=== PATIENT | male | born 1940 | race Caucasian/White ===

== ENCOUNTER → 2017-11-15 12:34 | Outpatient (CLI) | payer MEDICARE, SELFPAY ==
--- NOTE | 2017-11-15 12:40 | RAD_ITS ---
STUDY: X-RAY CHEST REASON FOR EXAM: Male, 77 years old. Cough. TECHNIQUE: PA and lateral views of the chest. COMPARISON: August 18, 2006. CT of the chest, September 12, 2007. FINDINGS: The lungs are clear and expanded. There is no demonstrated pleural abnormality. Normal size heart. Normal mediastinum and more. Normal visualized pulmonary arteries. Normal visualized aortic arch and descending thoracic aorta. There are diffuse degenerative changes of the visualized thoracic spine. Normal visualized ribs, clavicles, and shoulders. There is no demonstrated abnormality of the visualized soft tissue structures of the upper abdomen. RAD/Chest PA and Lateral IMPRESSION: No acute cardiopulmonary disease or interval change. Electronically Signed: Ed Singleton DO at 8:35 EDT Tel [phone], Service support ,
== END ==
PROVIDERS: Family Provider Family Medicine; PCP Family Medicine; Visit Provider Family Medicine
DX: R05 Cough (principal)
CPT/HCPCS: 71046

== ENCOUNTER 2019-04-19 07:58 | Day surgery (SDC) | payer MEDICARE, SELFPAY ==
[2019-03-20 14:51] VITALS: BMI 31.2
--- NOTE | 2019-04-18 21:13 | PCM.HP.BLA ---
History and Physical Date of Admission: 04/19/19 HISTORY OF PRESENT ILLNESS 79 year old man presents for evaluation for TBSE. He has an enlarging lesion on his right upper lip near the nasal sill by the columella and perialar area. It was initially biopsied in February, and it was a basal cell carcinoma. He is also concerned about a lesion on his right ear at the middle helical rim and extending onto the posterior aspect. This lesion has not been biopsied as of yet. It has also increased in size and has developed irregular borders. He also has a scabby area on his anterior frontal scalp that is consistent with an actinic lesion. He states it has also increased in size as well. Denies ulceration. Lesions are nontender. He presents at this time for further evaluation and treatment. PAST MEDICAL HISTORY Arthritis Atrial fibrillation Diabetes Hearing problem High cholesterol Skin cancer High blood pressure PAST SURGICAL HISTORY None. ALLERGIES No Known Allergies MEDICATIONS glucosamine lisinopril metformin multivitamin simvastatin warfarin FAMILY HISTORY Mother - Cancer, Heart disease, Hypertension Daughter - Cancer SOCIAL HISTORY Smoking Status: Former smoker alcohol intake: never substance use type: does not use REVIEW OF SYSTEMS General - Denies fever, fatigue, and weight loss. Eyes - Has cataracts. Denies glaucoma. ENT - Denies nasal congestion and sore throat. Endocrine - Denies excessive thirst and urination. Skin - Has basal cell carcinoma right upper lip near nasal sill by columella and perialar area. Has enlarging lesion right ear at middle helical rim extending onto posterior aspect. He also has actinic lesion anterior frontal scalp. Musculoskeletal - Denies joint pain, joint stiffness, weakness of muscles and joints, back pain, and arthritis. Neuro - Denies headaches. Cardiovascular - Denies chest pain, fatigue, and shortness of breath with exertion. Psych - Denies anxiety and depression. Respiratory - Denies chronic cough and shortness of breath. Gastrointestinal - Denies nausea, vomiting, and constipation. Has diarrhea. Hematologic - Denies abnormal bruising and bleeding. Genitourinary - Denies hematuria. Has urinary frequency. PHYSICAL EXAMINATION General - Alert and Oriented. HEENT - PERRL. EOMI. Throat is clear. On the right upper lip near nasal sill by columella and perialar area is a nodular lesion that measures 7 mm. It was biopsied in February, and shown to be a basal cell carcinoma with ulceration. On the right ear at middle helical rim extending onto posterior aspect is a nodular lesion that is firm. It measures 14 mm. No ulceration. Lesion is nontender. On the anterior frontal scalp is an actinic scabby lesion that measures 2 cm. No ulceration. Lesion is nontender. Neck - Supple and nontender. No cervical adenopathy. No suspicious lesions noted. Lungs - Clear to auscultation. Heart - Regular rate and rhythm. Abdomen - Soft and nondistended. Extremities - FROM. No axillary adenopathy. Radial pulses are palpable. No suspicious lesions noted. Neuro - CN II-XII grossly intact. Psych - Normal mood and affect. ASSESSMENT 1. 7 mm basal cell carcinoma right upper lip near nasal sill by columella and perialar area. 2. 14 mm lesion right ear at middle helical rim extending onto posterior aspect. 3. 2 cm actinic lesion anterior frontal scalp. 4. Personal history of skin cancer. 5. Former smoker. PLAN Recommend excision of the basal cell carcinoma right upper lip near nasal sill by columella and perialar area and send it to Pathology for analysis to rule out carcinoma. Reconstruction will be with complex lip advancements and/or skin grafting. He is interested in the least amount strategy to take care of the carcinoma. The patient is interested in leaving the wound open after excision of the basal cell carcinoma. The resultant wound should heal well with daily Silver dressing changes. If there develops a problem with healing of the wound on the right upper lip area, then the scar can be excised followed by skin grafting or advancement lip flaps. If the right ear lesion shows carcinoma, then a two stage posterior auricular skin flap with cartilage grafting for support would be needed. The patient is not that interested in a 2 stage procedure. The simplest one stage procedure for the right ear would be skin grafting. Slight deformity may be present after the one stage reconstruction. Patient is aware of the possibility of residual deformity of the right ear. He voices understanding and wishes to proceed. Surgery will be under local anesthesia and IV sedation on an outpatient basis. Patient was informed of the risks and complications of the procedure including alternatives to surgery. These were discussed with the patient personally. Patient voices understanding and wishes to proceed. Some of the risks and complications were included in a form from the [employer] [employer]. For the actinic lesion anterior frontal scalp, can treat with Aldara cream after the surgery. The cream is applied to the affected area daily at night 5 days per week for 6 weeks. if not successful, then excision would be needed with skin grafting for support. After using Aldara, he will followup in 2 months for further evaluation.
[2019-04-19] VITALS (8 sets, daily range): BP systolic 112–147; BP diastolic 43–76; PULSE 54–82; RESP 16–18; TEMP 36–36.4; O2SAT 92–99; BMI 30.4
--- NOTE | 2019-04-19 | LES_PTH ---
PATIENT: CHRISTIANO ESTRELLA LOC: [facility] [place] U#:[id number] AGE/SX: 79/M ROOM: RE04/19/[address]: Dr. Greg Finnegan MD : 1940 BED: DIS: 04/19/2019 SPEC #: [id number] RECD: 04/19/19 09:49 STATUS: YANCI JANE #: [id number] ELYSE: 04/19/19 00:[address]: Greg Finnegan DEPT: SURGICAL PATHOLOGY RECD BY: Xiomara Armstrong ENTERED: 04/19/19 10:01 SP TYPE: Lesion OTHR DR: Dr. Kanu Steele MD Tissues: A - Skin of external ear, NOS B - Skin of lip, NOS C - Skin of external ear, NOS Procedures: Frozen Section (charge) Surgery Specimen Level IV HEADER OPERATION: Excision basal cell carcinoma, right upper lip by perialar area PRE-OP DIAGNOSIS: 7 mm basal cell carcinoma right upper lip near nasal sill by columella and perialar area; 14 mm lesion right ear at middle helical rim extending onto posterior aspect TISSUE SUBMITTED: A - Right ear lesion middle helical rim at posterior aspect sent for FS at 0943, B - Right upper lip near nasal sill by columella and perialar area, suture niño 12 o'clock, C - Right ear additional margins, black suture at 12 o'clock, clear suture at side is for repair only FROZEN SECTION DIAGNOSIS A. Right ear lesion, middle helical rim at posterior aspect, biopsy: Basal cell carcinoma. SJ:maritza 04/19/19 MICROSCOPIC DIAGNOSIS A. Right ear lesion, middle helical rim at posterior aspect, biopsy: Basal cell carcinoma, nodular type (1.4 cm in greatest dimension). See comment. B. Lesion right upper lip near nasal sill by columella and perialar area, excisional biopsy: Basal cell carcinoma, nodular type (0.8 cm in greatest dimension) with focal ulceration and associated inflammation, completely excised in the planes of sections examined. Solar elastosis. C. Right ear lesion, additional margin, excisional biopsy: Focal ulceration and changes consistent with previous biopsy site (specimen A). Focal residual basal cell carcinoma (0.2 cm in greatest dimension), completely excised. Solar elastosis. SJ:maritza 04/22/19 COMMENT A. The entire specimen is involved by tumor. Case has been reviewed in consultation with Dr. Jean who concurs with the above diagnosis. IDC:AM MICROSCOPIC DESCRIPTION Slides are reviewed. GROSS DESCRIPTION A - Received fresh for frozen section diagnosis labeled with the patient's name is a specimen designated right ear lesion at middle helical rim extending onto posterior aspect. The specimen consists of a piece of lenz-white skin measuring 1.4 x 1 x 0.2 cm. The specimen is inked, serially sectioned and submitted entirely for frozen section diagnosis in one cassette. B - Received in fixative is one container labeled with the patient's name and designated lesion right upper lip near nasal sill by columella and perialar area, suture niño 12 o'clock. The specimen consists of a round piece of lenz-white skin measuring 1.4 x 1.1 cm and up to 0.3 cm in thickness. The specimen is inked as follows: 12 to 3 o'clock - black, 3 to 6 o'clock - blue, 6 to 9 o'clock - green and 9 to 12 o'clock - yellow. The specimen is serially sectioned and submitted entirely in one cassette. C - Received in fixative is one container labeled with the patient's name and designated right ear additional margin, suture at 12 o'clock. The specimen consists of a wide piece of lenz-white skin measuring 2 x 1 x 0.2 cm. There is a central defect measuring 1.3 x 0.7 cm. The specimen is oriented by a suture at 12 o'clock. The specimen is inked as follows: 12 to 3 o'clock - black, 3 to 6 o'clock - blue, 6?to 9 o'clock - green, 9 to 12 o'clock - yellow. The specimen is serially sectioned and submitted entirely in one cassette. / LUIS FERNANDO:maritza 04/19/19 TC:0 CPT: 74962 x3, 12755
[2019-04-19] MEDS: Lactated Ringers 1,000 ML 100 ML IV ×2 (08:54→12:17)
[2019-04-19 09:01] LABS: Bedside Glucose 125 mg/dL (70-110)
[2019-04-19] MEDS: Mupirocin Ointment 22gm Tube 1 APPLIC (10:50)
[2019-04-19 10:56] LABS: Prothrombin Time Fingerstick 14.8 SEC (11.9-14.4)
--- NOTE | 2019-04-19 11:04 | PCM.OPRPT ---
Report of Operation Date of Procedure: 04/19/19 Pre-Operative Diagnosis: 1. 7 mm basal cell carcinoma right upper lip near nasal sill by columella and perialar area. 2. 14 mm lesion right ear at middle helical rim extending onto posterior aspect. 3. 2 cm actinic lesion anterior frontal scalp. 4. Personal history of skin cancer. 5. Former smoker. Post-Operative Diagnosis: 1. 7 mm basal cell carcinoma right upper lip near nasal sill by columella and perialar area. 2. 14 mm basal cell carcinoma right ear at middle helical rim extending onto posterior aspect. 3. 2 cm actinic lesion anterior frontal scalp. 4. Personal history of skin cancer. 5. Former smoker. Surgery/Procedure Performed:: 1. Excision 7 mm basal cell carcinoma right upper lip near nasal sill by columella and perialar area. 2. Excision 14 mm basal cell carcinoma right ear at middle helical rim extending onto posterior aspect with FTSG reconstruction from right neck (4.32 cm2). Description of Surgical Findings:: 79 year old man presents for evaluation for TBSE. He has an enlarging lesion on his right upper lip near the nasal sill by the columella and perialar area. It was initially biopsied in February, and it was a basal cell carcinoma. He is also concerned about a lesion on his right ear at the middle helical rim and extending onto the posterior aspect. This lesion has not been biopsied as of yet. It has also increased in size and has developed irregular borders. He also has a scabby area on his anterior frontal scalp that is consistent with an actinic lesion. He states it has also increased in size as well. Denies ulceration. Lesions are nontender. Plan on treating the actinic lesion anterior frontal scalp with Aldara cream. If not successful, will need surgical excision in the future. Patient was informed of the risks and complications of the procedure including alternatives to surgery. These were discussed with the patient personally. Patient voices understanding and wishes to proceed. Some of the risks and complications were included in a form from the [employer]. Size of skin graft middle helical rim right ear at posterior aspect - 2.4 x 1.8 cm. I used Anat absorbable hemostat. Reference Number - [id number]. Lot Number - [id number]. Expiration - February 14, 2024. 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 Type of Anesthesia:: General Specimen's removed: 1. Basal cell carcinoma right upper lip near nasal sill by columella and perialar area to Pathology. 2. Lesion right ear at middle helical rim extending onto posterior aspect to Pathology as a frozen section. 3. Basal cell carcinoma right ear at middle helical rim extending onto posterior aspect to Pathology. Drains: None. Estimated Blood Loss (mL): 25 ml. Description of Procedure: Patient was taken to OR in supine position and was placed under general anesthesia. The face and neck areas were prepped and draped in the usual fashion. SCD's were placed for DVT prophylaxis. Perioperative antibiotics were given intravenously. Using xylocaine with epinephrine, the lesion right upper lip was infiltrated. A regional auricular block right ear was also done for postop pain relief. After waiting 5 minutes for the anesthetic to take effect, I excised the right upper lip basal cell carcinoma in a circular fashion with a 3 mm margin in all directions thus making it a 13 mm excision. The excision was into the subcutaneous tissue. A suture was marked at 12 oclock position for pathology orientation and sent to Pathology for analysis to rule out carcinoma at the margins. The patient was not interested in wound reconstruction at this time so will leave the wound open. Hemostasis was obtained with electrocautery. The wound was dressed with Aquacel Silver and 4-0 Nylon tie over stent suture dressing. I then excised the lesion middle helical rim right ear extending onto posterior aspect in an intradermal fashion and sent it to Pathology as a frozen section. Frozen section showed it was a basal cell carcinoma. I then excised the remaining lesion with a 5 mm margin in all directions thus making it a 2.4 cm excision. Dissection was carried down to the perichondrium. No adherence to the cartilage was noted. A suture was marked at 12 oclock position for pathology orientation and was sent to Pathology for analysis to rule out carcinoma at the margins. The size of the defect for skin grafting was 2.4 x 1.8 cm or 4.32 cm2. I made an elliptical incision in the right neck after first infiltrating the area with xylocaine with epinephrine. The incision went into the subcutaneous tissue. I removed the subcutaneous tissue from the underside of the dermis thus fashioning a full thickness skin graft. The skin graft was placed in saline. I excised a little more subcutaneous tissue to aid in wound closure. Hemostasis was obtained with electrocautery. I sprayed Anat absorbable hemostat into the donor wound right neck to minimize seroma formation. The wound was closed in a layered fashion with 5-0 Monocryl interrupted sutures for the deep dermis and subcutaneous tissue. The skin was approximated with 5-0 Nylon simple interrupted sutures. Antibiotic ointment was applied to the suture line followed by gauze compression dressing. The full thickness skin graft was placed on the defect right ear and closed to the skin edges with 5-0 Chromic simple interrupted sutures. 5-0 Chromic sutures were also used for central quilting stabilization. Xeroform gauze was applied to the skin graft followed by antibiotic ointment and cotton balls soaked in saline and secured to the skin edges with 5-0 Nylon tie over stent suture dressing. Patient tolerated the procedure well and was sent to PACU in satisfactory condition. Patient will be sent home on antibiotics and pain medication. He will keep his head elevated during the initial postoperative period. Patient will followup on Monday for a Silver dressing change to his right upper lip. Will also remove the skin graft dressing as well for a wound check and for discussion of the pathology report. The donor incision sutures will be removed in a week. Grafts/Implants Used: None. - Complications None. - Admit VTE Documentation VTE Present on Admission: No VTE Mechan Device Prophylaxis: SCD's VTE Pharm Prophylaxis ordered?: No Code Visit Surgery Charges CPT - 50612 ICD-10 - C44.01, Z85.828, Z87.891 51045 C44.212, D49.2, Z85.828, Z87.891 37172 C44.212, D49.2, Z85.828, Z87.891
--- NOTE | 2019-04-19 11:20 | DCINST_ITS ---
You will use the following diet at home:: No restrictions Discharge Activity: May not drive while taking narcotic pain medications., May Not Shower - until dressing removed in office. May shower in (days): 5 - after the dressings are removed. May resume sexual activity in: No Restrictions Weight Bearing Status: Weight bearing as tolerated Lifting Restrictions: 10 lbs. Keep extremity elevated above heart level: - - keep head elevated. Call your doctor if your incision/area has: Continuous Slow Oozing, Sudden Increased Bleeding, Increased Pain/ Swelling, Increased Redness, Foul Smelling Discharge, Swelling at the incision site Call your doctor if you observe: Fever of 101 or Higher, Coldness, Increased Pain, Shortness of breath, Chest pain, Calf discomfort, Uncontrolled pain Suture Line Care: - - after dressings removed in office, will apply antibiotic ointment to suture line daily and the skin graft right ear daily. Will instruct patient on the right upper lip Silver dressing changes. Cleanse incision/area with: - - may shower after the dressings are removed in the office. Allergies/Adverse Reactions: Allergies No Known Allergies Allergy (Verified 04/19/19 08:27) Medications to take at Discharge glucosamine HCl 1,500 mg tablet 1,500 mg PO BID tab 03/15/19 lisinopril 10 mg tablet 10 mg PO DAILY 03/15/19 metformin 1,000 mg tablet 1,000 mg PO BID 03/15/19 multivitamin tablet 1 tab PO DAILY 03/15/19 simvastatin 20 mg tablet 20 mg PO QPM 03/15/19 Clindamycin HCl [Cleocin HCl] 300 mg PO TID #21 cap 04/19/19 Lactobacillus Acidophilus/Fos [Acidophilus Probiotic Tablet] 1 ea PO BID #15 tab 04/19/19 Oxycodone HCl/Acetaminophen [Percocet 5/325] 1 tab PO TID PRN PRN 7 Days #20 tab 04/19/19 Warfarin Sodium 6 mg PO SUMOTUWEFRSA #30 04/19/19 Warfarin [Coumadin] 9 mg PO TH #30 04/19/19 The following prescriptions were given: Lactobacillus Acidophilus/Fos [Acidophilus Probiotic Tablet] 1 ea PO BID #15 tab Prescription Printed Clindamycin HCl [Cleocin HCl] 300 mg PO TID #21 cap Prescription Printed Oxycodone HCl/Acetaminophen [Percocet 5/325] 1 tab PO TID PRN PRN 7 Days #20 tab PRN Reason: Pain Score 4-5/10 Prescription Printed Primary Care Physician: Lucas Steele MD [Primary Care Provider] - Test Results: Test results from this visit will be discussed in further detail at your follow- up appointment, if applicable. Please Follow Up With: Greg Finnegan MD When: Monday04/22/19. call [phone] for appt. Proposed Discharge Date: 04/19/19
[2019-04-19 12:01] LABS: Bedside Glucose 155 mg/dL (70-110)
== END 2019-04-19 14:10 | disposition home or self-care (01) ==
LOC: SDC 08:01 → AC 08:01
PROVIDERS: Family Provider Family Medicine; PCP Family Medicine; Referring Provider Surgery; Visit Provider Surgery
PROC: (CPT 11643; principal; 2019-04-19 09:10)
DX: C44.212 Basal cell carcinoma of skin of right ear and external auricular canal (principal); C44.01 Basal cell carcinoma of skin of lip; L57.8 Other skin changes due to chronic exposure to nonionizing radiation; Z85.828 Personal history of other malignant neoplasm of skin; Z87.891 Personal history of nicotine dependence; M19.90 Unspecified osteoarthritis, unspecified site; I48.91 Unspecified atrial fibrillation; E11.9 Type 2 diabetes mellitus without complications; E78.00 Pure hypercholesterolemia, unspecified; I10 Essential (primary) hypertension; G25.81 Restless legs syndrome; Z79.84 Long term (current) use of oral hypoglycemic drugs; Z79.01 Long term (current) use of anticoagulants; Z79.899 Other long term (current) drug therapy
CPT/HCPCS: 11643; 15260; 36416; 82962; 85610; 88305; 88331; J7120; J2405

== ENCOUNTER → 2019-07-25 13:53 | Outpatient (CLI) | payer MEDICARE, SELFPAY ==
[2019-05-29 10:59] VITALS: BMI 30.4
--- NOTE | 2019-07-25 13:57 | RAD_ITS ---
STUDY: X-RAY - RIGHT SHOULDER REASON FOR EXAM: Male, 79 years old. Right shoulder pain, fell recently -- limited range of motion TECHNIQUE: 4 view(s) of the shoulder. COMPARISON: None. FINDINGS: There is moderate degenerative arthrosis of the glenohumeral articulation. There is degenerative arthrosis of the acromioclavicular joint without inferior osseous spur formation. Normal acromion. Normal humeral head and visualized proximal humerus. The soft tissue structures are unremarkable. Normal visualized pulmonary apex. RAD/Shoulder min 2 Views IMPRESSION: Glenohumeral and acromioclavicular joint arthrosis Electronically Signed: Aaron Frederick MD at 9:42 EST , Service support ,
== END ==
PROVIDERS: PCP Family Medicine; Referring Provider Family Medicine; Visit Provider Family Medicine
DX: M25.511 Pain in right shoulder (principal)
CPT/HCPCS: 73030

== ENCOUNTER → 2019-08-30 08:19 | Outpatient (CLI) | payer MEDICARE, SELFPAY ==
[2019-05-29 10:59] VITALS: BMI 30.4
--- NOTE | 2019-08-29 15:00 | LES_PTH ---
PATIENT: CHRISTIANO ESTRELLA LOC: [facility] U#:[id number] AGE/SX: 85/M ROOM: RE08/30/[address]: Dr. Kanu Steele MD : 1940 BED: DIS: SPEC #: [id number] RECD: 08/29/19 17:46 STATUS: YANCI JANE #: [id number] ELYSE: 08/29/19 15:[address]: Kanu Steele DEPT: SURGICAL PATHOLOGY RECD BY: Thompson Camacho Tissues: Skin of forehead Procedures: Surgery Specimen Level IV HEADER OPERATION: Shave biopsy PRE-OP DIAGNOSIS: ? BCC TISSUE SUBMITTED: Suspicious lesion of forehead MICROSCOPIC DIAGNOSIS Suspicious lesion of forehead, shave biopsy: Features of both seborrheic keratosis and actinic keratosis with mild atypia. Negative for malignancy. SJ:maritza 09/02/19 COMMENT Case has been reviewed in consultation with Dr. Jean who concurs with the above diagnosis. IDC:AM MICROSCOPIC DESCRIPTION Slides are reviewed. GROSS DESCRIPTION Received in fixative is one container labeled with the patient's name and designated forehead lesion. The specimen consists of two irregular fragments of light lenz shave biopsy of skin measuring in size from 1.5 to 2.7 cm. Both have an average thickness of 0.1 cm. Both fragments are inked, sectioned and totally submitted in one cassette. / AM:maritza 08/30/19 TC:5 CPT: 14589
== END ==
PROVIDERS: PCP Family Medicine; Referring Provider Family Medicine; Visit Provider Family Medicine
DX: C44.91 Basal cell carcinoma of skin, unspecified (principal)
CPT/HCPCS: 88305

== ENCOUNTER → 2020-05-04 15:08 | Outpatient (CLI) | payer MEDICARE, SELFPAY ==
[2019-05-29 10:59] VITALS: BMI 30.4
[2020-05-04 18:57] LABS: ALB/GLOB Ratio 1.1 RATIO (0.9-2.4); AST(SGOT) 24 U/L (15-37); Alanine Aminotransfer ALT/SGPT 39 U/L (16-61); Albumin, Serum 3.8 g/dL (3.2-5.0); Alkaline Phosphatase 73 U/L (45-117); Anion Gap 8 (5-15); BUN 18 mg/dL (7-18); BUN/Creat Ratio 13.8 RATIO (10-20); Calcium,Total 9.3 mg/dL (8.5-10.1); Chloride 104 mmol/L (98-107); Cholesterol 147 mg/dL (200); EST Glomerular Filtration Rate 56 mL/min (>60); Est Glom Filt Rate - Afr Amer 68 mL/min (>60); Globulin 3.5 g/dL (2.2-4.2); Glucose 158 mg/dL (74-106); High Density Lipoprotein 39 mg/dL; Potassium 4.3 mmol/L (3.5-5.1); Protein, Total 7.3 g/dL (6.4-8.2); Sodium Level 139 mmol/L (136-145); Thyroid Stim Hormone (TSH) 3.21 uIU/mL (0.358-3.74); Triglycerides 242 mg/dL; Very Low Density Lipoprotein 48 mg/dL (5-40)
== END ==
PROVIDERS: PCP Family Medicine; Visit Provider Family Medicine
DX: E11.8 Type 2 diabetes mellitus with unspecified complications (principal); E78.5 Hyperlipidemia, unspecified
CPT/HCPCS: 36415; 80053; 80061; 84443

== ENCOUNTER → 2020-11-26 17:32 | Outpatient (CLI) | payer MEDICARE, SELFPAY ==
[2019-05-29 10:59] VITALS: BMI 30.4
== END ==
PROVIDERS: PCP Family Medicine; Referring Provider Family Medicine; Visit Provider Family Medicine
DX: Z20.822 Contact with and (suspected) exposure to COVID-19 (principal)
CPT/HCPCS: 87635; U0005; U0003

== ENCOUNTER → 2021-04-26 12:57 | Outpatient (CLI) | payer MEDICARE, SELFPAY | PROVIDERS: PCP Family Medicine; Visit Provider Family Medicine | DX: U07.1 COVID-19 (principal) | CPT/HCPCS: 87635; U0005; U0003 ==

== ENCOUNTER 2021-04-28 12:08 | Outpatient (CLI) | payer MEDICARE, SELFPAY ==
[2021-04-28 12:30] VITALS: BP 122/48; PULSE 79; RESP 16; TEMP 36.3; O2SAT 99; BMI 29.0
[2021-04-28] MEDS: 0.9% Saline Lock 10 ML Syringe IV (12:30)
[2021-04-28 13:21] VITALS: BP 122/49; PULSE 67; RESP 16; TEMP 36.6; O2SAT 100
[2021-04-28 14:07] VITALS: BP 134/58; PULSE 90; RESP 16; TEMP 36.6; O2SAT 100
== END 2021-04-28 14:20 | disposition home or self-care (01) ==
LOC: MS3OUT 12:09 → MS3 12:09
PROVIDERS: PCP Family Medicine; Referring Provider Nurse Practitioner Adult Health; Visit Provider Nurse Practitioner Adult Health
DX: Z23 Encounter for immunization (principal); U07.1 COVID-19
CPT/HCPCS: J7050; M0245; Q0245; A4216

== ENCOUNTER 2021-11-11 21:15 | Emergency (ER) | payer MEDICARE, SELFPAY ==
[2021-11-11 21:16] VITALS: BP 140/74; PULSE 93; RESP 15; TEMP 37; O2SAT 97; BMI 29.1
[2021-11-11 21:18] VITALS: BP 140/74; PULSE 93; RESP 15; TEMP 37; O2SAT 97
--- NOTE | 2021-11-11 21:29 | EDS_ITS ---
HPI History of Present Illness Chief Complaint: Complaint Narrative Narrative: Patient presents with his with urinary retention symptoms that he has had for the past few weeks. He states that he will feel retention and then only go a small amount. He states he started taking super beta prostate and it did not seem to make a difference, however when he stopped taking that on Monday, 4 days ago, he states that he started having more retention. Approximately an hour ago he went a small amount. He has minimal discomfort in the suprapubic area. He denies any fevers or chills. No nausea or vomiting. His called his primary care physician and told him to come to the emergency department for evaluation of his decreased urine output/urinary retention. [facility] Medical History Arthritis Atrial fibrillation Diabetes Hearing problem High blood pressure High cholesterol Prostate enlargement Skin cancer Home Medications glucosamine HCl 1,500 mg tablet 1,500 mg PO BID tab 03/15/19 [History Last Taken Unknown] lisinopril 10 mg tablet 10 mg PO DAILY 03/15/19 [History Last Taken 04/19/19 07 :00 10 MG] metformin 1,000 mg tablet 1,000 mg PO BID 03/15/19 [History Last Taken Unknown] multivitamin 1 tab PO DAILY 03/15/19 [History Last Taken Unknown] simvastatin 20 mg tablet 20 mg PO QPM 03/15/19 [History Last Taken Unknown] warfarin 6 mg PO SUMOTUWEFRSA #30 04/19/19 [Rx Last Taken Unknown] warfarin 9 mg PO TH #30 04/19/19 [Rx Last Taken Unknown] cephalexin 500 mg PO TID #21 cap 11/11/21 [Rx Last Taken Unknown] Allergy/AdvReac Type Severity Reaction Status Date / Time No Known Allergies Allergy Verified 11/11/21 21:18 Family History Mother Cancer Heart disease Hypertension Daughter Cancer Social History Smoking Status: Former smoker alcohol intake: never substance use type: does not use additional social history: DOES USE ASPIRIN DOES USE IBUPROFEN ROS ROS ED ROS Narrative Constitutional: No fever, no chills. HEENT: No sore throat. No neck pain. No loss of vision. No rhinorrhea. Cardiovascular: No chest pain. No palpitations. No pedal edema. Respiratory: No cough, no shortness of breath. Abdominal: No abdominal pain. No nausea. No vomiting. Genitourinary: Positive difficulty urinating/dysuria. No hematuria. Urinary retention. Musculoskeletal: No myalgias. No arthralgias. Neurologic: No headaches. No dizziness. No lightheadedness. Skin: No rash. No change in color. Psychiatric: No depression. No anxiety. Review of systems mildly limited secondary to patient being hard of hearing. EXAM Physical Exam Narrative Exam Narrative: Afebrile. Vital signs noted. HEENT: Normocephalic. Atraumatic. PERRL, EOMI. Neck soft and supple. No point tenderness or step off. Cardiovascular: Regular rate and rhythm. No murmurs, rubs, or gallops appreciated. Respiratory: No tachypnea. Lungs clear to auscultation bilaterally. Gastrointestinal: Abdomen soft, nontender, with normoactive bowel sounds. No rebound or guarding. Neurological: Awake. Alert. Nonfocal, nonlateralizing. Patient hard of hearing even with hearing aids. Skin: No rash. Normal color. No pallor. Musculoskeletal: No pedal edema. Full range of motion extremities. Const Vital Signs: 11/11/21 21:16 11/11/21 21:18 11/11/21 23:24 Temperature 98.6 F 98.6 F Temperature Source Temporal Temporal Pulse Rate 93 93 Respiratory Rate 15 15 16 Blood Pressure 140/74 H 140/74 H Blood Pressure Mean 96 96 Pulse Ox 97 97 Oxygen Delivery Method Room Air Room Air MDM MDM MDM Narrative Medical decision making narrative: Bladder scan was performed. We will place a Abdalla catheter and send urinalysis. RN reports that her bladder scan may not be accurate. Abdalla catheter was placed. There were over 2 L of slightly bloody urine returned. Urinalysis shows leukocyte esterase 500 with RBCs greater than 100 and WBCs 10-25. This was sent for culture. I will check his INR. He did have blood work today which showed a slightly elevated white count but a stable hemoglobin. He had an elevated BUN of 62 as an outpatient and an elevated creatinine of 3.6, but I do think that this may have been secondary to his urinary retention. After his INR is checked, I do feel that he would be able to be discharged home with follow-up to his primary care physician for repeat INR check as he will be on antibiotics, and repeat creatinine after his urinary outlet obstruction has been resolved with a Abdalla catheter that has remained in place. He will be given a leg bag. I was able to discuss the patient with Dr. Seth Howell, on-call for his primary care physician who agrees with close outpatient follow-up, and rechecking his creatinine and holding his Coumadin to have his INR rechecked in a few days. states she will call the office tomorrow. He will also follow-up with urology and was referred to Dr. Flores. Return instructions were reviewed. Disposition is discharged home in stable condition. Lab Data Attestation: I reviewed the patient's lab results. Labs: Laboratory Results - last 24 hr 11/11/21 11/11/21 21:55 23:25 PT 38.5 H INR 4.0 H* Urine Color Red Urine Clarity Cloudy Urine pH 6.5 Ur Specific [place] 1.010 Urine Protein 100 H Urine Glucose (UA) Normal Urine Ketones 5 H Urine Occult Blood 250 H Urine Nitrite Negative Urine Bilirubin Negative Urine Urobilinogen 1 H Ur Leukocyte Esterase 500 H Urine RBC > 100 SEEN Urine WBC 10-25 SEEN Ur Squamous Epith Cells 5-10 SEEN Urine Bacteria 4+ Urine Mucus 0 SEEN Discharge Plan Triage Chief Complaint: Complaint ED Provider: Chintan Hughes Dx/Rx/DC Orders Clinical Impression: Acute urinary retention, Acute UTI, Supratherapeutic international normalized ratio (INR) Instructions: ED Abdalla Catheter, Care, ED Urinary Retention, Male, ED Urinary Tract Infections in Men Prescriptions: New cephalexin 500 mg capsule 500 mg PO TID Qty: 21 RF: 0 No Action lisinopril 10 mg tablet 10 mg PO DAILY RF: 0 metformin 1,000 mg tablet 1,000 mg PO BID RF: 0 simvastatin 20 mg tablet 20 mg PO QPM RF: 0 multivitamin [Daily Multi-Vitamin] Tablet 1 tab PO DAILY RF: 0 glucosamine HCl 1,500 mg tablet 1,500 mg PO BID RF: 0 warfarin 6 MG tablet 9 mg PO TH Qty: 30 RF: 0 warfarin 6 mg tablet 6 mg PO SUMOTUWEFRSA Qty: 30 RF: 0 Primary Care Provider: Lucas Steele Referrals: Lucas Steele MD [Primary Care Provider] - 1 Day Jose Flores MD [STAFF PHYSICIAN] - 3-5 Days Activity Restrictions/Additional Instructions: Do not remove Abdalla catheter. Take your antibiotics as directed. Return with sustained high fever, new or worsening symptoms. Hold your Coumadin for the next 2 days. Have your INR rechecked as it was elevated at 4.0. Drink plenty of fluids and you need to have your creatinine rechecked. Disposition Disposition: Home, Self Care
[2021-11-11 22:01] LABS: Mucous, Urine 0 SEEN /hpf (<or=2+)
[2021-11-11 22:08] LABS: Color, Urine Red (Yellow); Glucose, Dipstick Normal (Normal); Ketone-Dipstick 5 mg/dl (Negative); Leukocyte Esterase-Dipstick 500 /ul (Negative); Nitrite-Dipstick Negative (Negative); Occult Blood-Urine 250 /ul (Negative); Protein-Dipstick 100 mg/dl (Negative); Urine Bilirubin Dipstick Negative (Negative); Urine Clarity Cloudy (Clear); Urine Urobilinogen 1 mg/dl (Normal); Urine pH 6.5 (5.0 - 8.0)
[2021-11-11 22:19] LABS: Bacteria 4+ /hpf (None Seen); Red Blood Cells-Urine > 100 SEEN /hpf (0-5); Squamous Epithelial Cells - UA 5-10 SEEN /hpf (0-5); White Blood Cells 10-25 SEEN /hpf (0-5)
[2021-11-11] MEDS: Cephalexin 250 MG Capsule 500 MG PO (23:17)
[2021-11-11 23:24] VITALS: RESP 16
[2021-11-11 23:43] LABS: Prothrombin Time (Protime)PT. 38.5 SECONDS (11.7-14.9)
[2021-11-12 00:17] VITALS: PULSE 80; RESP 18; O2SAT 96
== END 2021-11-12 00:17 | disposition home or self-care (01) ==
PROVIDERS: Emergency Provider Emergency Medicine; PCP Family Medicine; Visit Provider Emergency Medicine
DX: R33.9 Retention of urine, unspecified (principal); I48.91 Unspecified atrial fibrillation; E11.9 Type 2 diabetes mellitus without complications; N39.0 Urinary tract infection, site not specified; E78.00 Pure hypercholesterolemia, unspecified; R53.83 Other fatigue; R79.1 Abnormal coagulation profile; Z79.01 Long term (current) use of anticoagulants; Z79.899 Other long term (current) drug therapy; Z79.84 Long term (current) use of oral hypoglycemic drugs; Z87.891 Personal history of nicotine dependence
CPT/HCPCS: 36415; 51702; 71046; 80053; 81001; 85025; 85610; 85652; 87077; 87086; 87088; 87186; 87635; 99284; U0003; U0005

== ENCOUNTER → 2021-11-11 | Outpatient (CLI) | payer MEDICARE, SELFPAY ==
--- NOTE | 2021-11-11 12:49 | RAD_ITS ---
STUDY: XR Chest 2 Views 11/11/2021 12:54 PM REASON FOR EXAM: Male, 81 years old. CHEST PAIN FATIGUE COMPARISON: None TECHNIQUE: XR Chest 2 Views FINDINGS: There is no demonstrated pleural abnormality. Normal heart size. Normal mediastinum. Normal more. Prominent appearing increased interstitial lung markings. Normal visualized pulmonary arteries. There is atherosclerotic calcification of the aortic arch with tortuosity. There are diffuse degenerative changes of the visualized thoracic spine. There is degenerative osteoarthritis of the bilateral shoulders. There is no demonstrated abnormality of the visualized soft tissue structures of the upper abdomen. RAD/Chest PA and Lateral IMPRESSION: There are no acute findings. Electronically Signed: Prashant Renteria MD at 19:01 EDT ,
[2021-11-11 15:10] LABS: Erythrocyte Sedimentation Rate 21 mm/hr (0-20)
[2021-11-11 15:12] LABS: Absolute Lymphocyte Count 0.31 X10^3/uL (0.83-4.51); Absolute Neutrophil Count 10.7 X10^3/uL (2.0-7.7); Basophil# 0.07 X10^3/uL; Basophil% 0.6 % (0-1); Hematocrit 42.5 % (40-54); Lymphocyte # 0.31 X10^3/ul (0.83-4.51); Lymphocyte % 2.6 % (19-41); Mean Corp Hgb Conc 32.9 g/dL (32-36); Mean Corpuscular Hgb 28.7 pg (27.0-32.0); Mean Corpuscular Volume 87.3 fL (80-94); Mean Platelet Vol. 11.7 fl (6.2-12.0); Monocyte# 0.86 X10^3/uL; Monocyte% 7.1 % (0-10); NRBC Flagged by Analyzer 0 % (0-5); Neutrophil # 10.73 X10^3/uL (2.7-7.7); Neutrophil % 89.2 % (47-70); POSITIVE DIFFERENTIAL YES; POSITIVE MORPHOLOGY YES; Platelet Count 195 K/mm3 (150-450); RBC Distribution Width CV 13.8 % (11.6-14.6); RBC Distribution Width SD 44.5 fl (35.1-43.9); Red Blood Count 4.87 M/mm3 (4.6-6.2)
[2021-11-11 15:27] LABS: ALB/GLOB Ratio 0.7 RATIO (0.9-2.4); AST(SGOT) 30 U/L (15-37); Alanine Aminotransfer ALT/SGPT 37 U/L (16-61); Alkaline Phosphatase 101 U/L (45-117); Anion Gap 13 (5-15); BUN 62 mg/dL (7-18); BUN/Creat Ratio 17.1 RATIO (10-20); Calcium,Total 9.1 mg/dL (8.5-10.1); Chloride 98 mmol/L (98-107); Creatinine, Serum 3.63 mg/dL (0.70-1.30); EST Glomerular Filtration Rate 17 mL/min (>60); Est Glom Filt Rate - Afr Amer 21 mL/min (>60); Globulin 4.4 g/dL (2.2-4.2); Glucose 273 mg/dL (74-106); Potassium 4.4 mmol/L (3.5-5.1); Protein, Total 7.4 g/dL (6.4-8.2); Sodium Level 132 mmol/L (136-145)
[2021-11-11 15:42] LABS: Differential Comment SCANNED
[2021-11-11 15:43] LABS: Differential Indicated SCAN CRITERIA MET
== END | disposition home or self-care (01) ==
PROVIDERS: PCP Family Medicine; Referring Provider Family Medicine; Visit Provider Family Medicine
DX: R53.83 Other fatigue (principal)
CPT/HCPCS: 36415; 71046; 80053; 85025; 85652; 87086; 87635; U0003; U0005

== ENCOUNTER 2021-11-13 10:49 | Inpatient (IN) | payer MEDICARE, SELFPAY ==
[2021-11-13 10:50] VITALS: BP 134/58; PULSE 96; RESP 18; TEMP 36.7; O2SAT 97; BMI 29.4
--- NOTE | 2021-11-13 11:04 | EKG12_ITS ---
Test Reason : WEAKNESS Blood Pressure : / mmHG Vent. Rate : 098 BPM Atrial Rate : 100 BPM P-R Int : 000 ms QRS Dur : 108 ms QT Int : 310 ms P-R-T Axes : 000 -07 005 degrees QTc Int : 395 ms Atrial fibrillation with premature ventricular or aberrantly conducted complexes Abnormal ECG Confirmed by LYN SALAZAR, WOLFGANG ([id number]), makeup editor SHAUNNA GRANT ([id number]) on 11/16/2021 1:12:11 PM Referred By: CAMMY Confirmed By:WOLFGANG NICHOLSON MD
--- NOTE | 2021-11-13 11:07 | NURSING ---
NO OLD EKGS
--- NOTE | 2021-11-13 11:20 | RAD_ITS ---
STUDY: X-RAY CHEST REASON FOR EXAM: Male, 81 years old. Weakness TECHNIQUE: Single AP portable view of the chest. COMPARISON: November 11, 2021. FINDINGS: The lungs are clear and expanded. There is no demonstrated pleural abnormality. Normal size heart. Normal mediastinum and more. Normal visualized pulmonary arteries. Normal visualized aortic arch and descending thoracic aorta. There is demineralization of the osseous structures. Normal visualized ribs, clavicles, and shoulders. There is no demonstrated abnormality of the visualized soft tissue structures of the upper abdomen. RAD/Chest 1 View (Portable) IMPRESSION: No acute cardiopulmonary disease. Stable appearance. Electronically Signed: Ke Guevara MD at 12:03 EDT ,
[2021-11-13] MEDS: 0.9% Normal Saline 1,000 ML 999 ML IV (11:31)
--- NOTE | 2021-11-13 11:33 | EDS_ITS ---
HPI History of Present Illness Chief Complaint: Weakness Informant: patient Narrative Narrative: Patient is an 81-year-old male with history of atrial fibrillation on Coumadin, diabetes mellitus on metformin and recent diagnosis of urinary retention UTI with Abdalla catheter in place and on Keflex. Fevers have since resolved however patient is not getting better and still feels very weak. notes his breathing seems a little faster. He continues to have blood-tinged urine. As he is not really getting better and is already been 2 days they brought him back for further evaluation. No new symptoms. Chart view shows INR was 4.0 on 11/11. No report of any falls however patient feels that he is having hard time walking because of weakness. [facility] Medical History Arthritis Atrial fibrillation Diabetes Hearing problem High blood pressure High cholesterol Prostate enlargement Skin cancer Home Medications glucosamine HCl 1,500 mg tablet 1,500 mg PO BID tab 03/15/19 [History Last Taken Unknown] lisinopril 10 mg tablet 10 mg PO DAILY 03/15/19 [History Last Taken 04/19/19 07:00 10 MG] metformin 1,000 mg tablet 1,000 mg PO BID 03/15/19 [History Last Taken Unknown] multivitamin 1 tab PO DAILY 03/15/19 [History Last Taken Unknown] simvastatin 20 mg tablet 20 mg PO QPM 03/15/19 [History Last Taken Unknown] warfarin 6 mg PO SUMOTUWEFRSA #30 04/19/19 [Rx Last Taken Unknown] warfarin 9 mg PO TH #30 04/19/19 [Rx Last Taken Unknown] cephalexin 500 mg PO TID #21 cap 11/11/21 [Rx Last Taken Unknown] Allergy/AdvReac Type Severity Reaction Status Date / Time No Known Allergies Allergy Verified 11/13/21 10:50 Family History Mother Cancer Heart disease Hypertension Daughter Cancer Social History Smoking Status: Former smoker alcohol intake: never substance use type: does not use additional social history: DOES USE ASPIRIN DOES USE IBUPROFEN ROS ROS ED Constitutional Constitutional ED: Reports other Details: Malaise, fatigue ; Denies chills or fever(s) Eyes Eyes: Denies blurry vision or change in vision ENT ENT ED: Denies rhinorrhea or sore throat Cardiovascular Cardiovascular: Denies chest pain Respiratory/Chest Respiratory/Chest: Denies dyspnea Gastrointestinal Gastrointestinal: Denies abdominal pain, constipation, diarrhea, nausea or vomiting Genitourinary Genitourinary ED: Reports hematuria and other Details: Abdalla catheter in place ; Denies dysuria Musculoskeletal Musculoskeletal: Denies arthralgias or myalgias Integumentary Denies Abrasions or rash Neurologic Neurologic: Reports weakness; Denies headache(s) or paresthesias Psychiatric Psychiatric: Denies anxiety or depression EXAM Physical Exam Const Vital Signs: 11/13/21 10:50 11/13/21 10:57 Temperature 98.0 F Temperature Source Temporal Pulse Rate 96 Respiratory Rate 18 Respiratory Effort Normal Respiratory Pattern Normal Blood Pressure 134/58 H Blood Pressure Mean 83 Pulse Ox 97 Oxygen Delivery Method Room Air Positive well nourished and well developed General Appearance ED: well developed and NAD HEENT Reports dry mucous membranes Negative for trauma Mouth ED: Yes dry mucous membranes Mouth: dry mucous membranes Eyes PERRL and EOMs intact bilaterally Neck supple and no JVD Chest Wall inspection of chest normal Resp clear to auscultation bilaterally Resp Narrative: Slightly coarse breath sounds. Slight tachypnea. Auscultation: Negative for wheezes or diminished lung sounds Cardio regular rate and no murmurs Rhythm: abnormal rhythm irregularly irregular GI normal to inspection, nondistended, normoactive bowel sounds, non-tender and non-distended Palpation: soft Narrative: Abdalla catheter in place with dark/blood-tinged urine draining. Minimal clots present Back/Spine no CVA tenderness Extremity normal to inspection General Extremety ED: Negative for edema or tenderness General Extremity: Negative for edema Neuro oriented x3 and CN's II-XII intact bilaterally Sensorium / Orientation: alert Motor Exam: general weakness Psych mental status grossly normal Skin no rashes or lesions noted and no wounds MDM MDM MDM Narrative Medical decision making narrative: Patient is evaluated for generalized weakness that is continued over the past few days. He was diagnosed with s upratherapeutic INR, urinary tract infection as well as acute urinary obstruction 2 days ago in the ER. At that time was put on Keflex. Patient is continue to have dark/blood-tinged urine and is not improving however his fevers have resolved. On exam patient is mildly tachypneic and generally weak but otherwise well-appearing. A work-up is notable for stable hemoglobin at 13.4. INR of 7.7. Patient's creatinine is now 4.52. Urinalysis continues to show hematuria and 2+ bacteria. Culture reviewed from prior visit which does show sensitivity to Keflex however given his worsening kidney function generalized malaise and concern for worsening dehydration he will be admitted to the hospital service. Patient and are agreeable with this plan of care. This time I do not think he requires emergent reversal of his INR as he is hemodynamically stable and this will be managed further by the hospitalist. Lab Data Attestation: I reviewed the patient's lab results. Labs: Laboratory Results - last 24 hr 11/13/21 11/13/21 11/13/21 11:25 11:25 11:25 WBC 10.0 RBC 4.64 Hgb 13.4 Hct 39.8 L MCV 85.8 MCH 28.9 MCHC 33.7 RDW Std Deviation 43.8 RDW Coeff of [place] 14.0 Plt Count 134 L MPV 12.1 H Immature Gran % (Auto) 2.100 H Neut % (Auto) 84.0 H Lymph % (Auto) 3.0 L [place] % (Auto) 10.1 H Eos % (Auto) 0.3 Baso % (Auto) 0.5 Absolute Neuts (auto) 8.4 H Absolute Lymphs (auto) 0.30 L Nucleated RBC % 0 Differential Comment SCANNED PT 64.9 H INR 7.7 H* Sodium 134 L Potassium 4.3 Chloride 102 Carbon Dioxide 22.0 Anion Gap 10 BUN 97 H Creatinine 4.52 H Estim Creat Clear Calc 13.83 Est GFR (MDRD) Af Amer 16 L Est GFR (MDRD) Non-Af 13 L BUN/Creatinine Ratio 21.5 H Glucose 261 H Calcium 9.0 Total Bilirubin 1.30 H AST 71 H ALT 56 Alkaline Phosphatase 112 Troponin I High Sens 25 Total Protein 6.1 L Albumin 2.0 L Globulin 4.1 Albumin/Globulin Ratio 0.5 L Urine Color Urine Clarity Urine pH Ur Specific [place] Urine Protein Urine Glucose (UA) Urine Ketones Urine Occult Blood Urine Nitrite Urine Bilirubin Urine Urobilinogen Ur Leukocyte Esterase Urine RBC Urine WBC Ur Squamous Epith Cells Urine Bacteria Urine Mucus 11/13/21 11:25 WBC RBC Hgb Hct MCV MCH MCHC RDW Std Deviation RDW Coeff of [place] Plt Count MPV Immature Gran % (Auto) Neut % (Auto) Lymph % (Auto) [place] % (Auto) Eos % (Auto) Baso % (Auto) Absolute Neuts (auto) Absolute Lymphs (auto) Nucleated RBC % Differential Comment PT INR Sodium Potassium Chloride Carbon Dioxide Anion Gap BUN Creatinine Estim Creat Clear Calc Est GFR (MDRD) Af Amer Est GFR (MDRD) Non-Af BUN/Creatinine Ratio Glucose Calcium Total Bilirubin AST ALT Alkaline Phosphatase Troponin I High Sens Total Protein Albumin Globulin Albumin/Globulin Ratio Urine Color Yellow Urine Clarity Cloudy Urine pH 6.0 Ur Specific [place] 1.015 Urine Protein 100 H Urine Glucose (UA) Normal Urine Ketones Negative Urine Occult Blood 250 H Urine Nitrite Negative Urine Bilirubin Negative Urine Urobilinogen 1 H Ur Leukocyte Esterase 500 H Urine RBC > 100 SEEN Urine WBC 10-25 SEEN Ur Squamous Epith Cells 0 SEEN Urine Bacteria 2+ Urine Mucus 0 SEEN Radiography Chest X-Ray - ED: 1 View, Read by ED Physician, Read by Radiologist and No Acute Disease Diagnostic Testing: Clinical Impression(s) from Imaging Studies Chest X-Ray 11/13/21 11:20 IMPRESSION: No acute cardiopulmonary disease. Stable appearance. Electronically Signed: Ke Guevara MD at 12:03 EDT Reading Location ID and State: [address] [place] [address] , Service support , Rhythm Strip Rhythm Strip: A-fib Rate: 98 Ectopy: PVC(s) EKG Initial EKG: Attestation: I personally reviewed and interpreted this EKG as follows: Interpretation: Atrial Fibrillation Comments: Atrial fibrillation at a rate of 98 with PVC present Normal axis Normal ST segments Normal QRS and QTc Discharge Plan Triage Chief Complaint: Weakness ED Provider: Gay Cunningham Dx/Rx/DC Orders Clinical Impression: JACKI (acute kidney injury), Acute UTI, Supratherapeutic international normalized ratio (INR), Debility Prescriptions: No Action lisinopril 10 mg tablet 10 mg PO DAILY RF: 0 metformin 1,000 mg tablet 1,000 mg PO BID RF: 0 simvastatin 20 mg tablet 20 mg PO QPM RF: 0 multivitamin [Daily Multi-Vitamin] Tablet 1 tab PO DAILY RF: 0 glucosamine HCl 1,500 mg tablet 1,500 mg PO BID RF: 0 warfarin 6 MG tablet 9 mg PO TH Qty: 30 RF: 0 warfarin 6 mg tablet 6 mg PO SUMOTUWEFRSA Qty: 30 RF: 0 cephalexin 500 mg capsule 500 mg PO TID Qty: 21 RF: 0 Primary Care Provider: Lucas Steele Referrals: Lucas Steele MD [Primary Care Provider] - Disposition Disposition: Acute Care Hospital [facility]
[2021-11-13 11:35] LABS: Mucous, Urine 0 SEEN /hpf (<or=2+); Squamous Epithelial Cells - UA 0 SEEN /hpf (0-5)
[2021-11-13 11:41] LABS: Absolute Neutrophil Count 8.4 X10^3/uL (2.0-7.7); Basophil# 0.05 X10^3/uL; Basophil% 0.5 % (0-1); Eosinophil# 0.03 X10^3/uL; Eosinophils% 0.3 % (0-5); Hematocrit 39.8 % (40-54); Hemoglobin 13.4 g/dL (13.0-16.5); Mean Corp Hgb Conc 33.7 g/dL (32-36); Mean Corpuscular Hgb 28.9 pg (27.0-32.0); Mean Corpuscular Volume 85.8 fL (80-94); Mean Platelet Vol. 12.1 fl (6.2-12.0); Monocyte# 1.01 X10^3/uL; Monocyte% 10.1 % (0-10); NRBC Flagged by Analyzer 0 % (0-5); POSITIVE DIFFERENTIAL YES; POSITIVE MORPHOLOGY YES; Platelet Count 134 K/mm3 (150-450); RBC Distribution Width SD 43.8 fl (35.1-43.9); Red Blood Count 4.64 M/mm3 (4.6-6.2)
[2021-11-13 11:44] LABS: Differential Indicated SCAN CRITERIA MET
[2021-11-13 11:46] LABS: Prothrombin Time (Protime)PT. 64.9 SECONDS (11.7-14.9)
[2021-11-13 11:48] LABS: Color, Urine Yellow (Yellow); Glucose, Dipstick Normal (Normal); Ketone-Dipstick Negative (Negative); Leukocyte Esterase-Dipstick 500 /ul (Negative); Nitrite-Dipstick Negative (Negative); Occult Blood-Urine 250 /ul (Negative); Protein-Dipstick 100 mg/dl (Negative); Specific Gravity, Urine 1.015 (1.002-1.030); Urine Bilirubin Dipstick Negative (Negative); Urine Clarity Cloudy (Clear); Urine Urobilinogen 1 mg/dl (Normal)
[2021-11-13 11:49] LABS: International Normalized Ratio 7.7
--- NOTE | 2021-11-13 11:50 | ED.RN ---
lab calls inr 7.7 md aware
[2021-11-13 11:54] LABS: ALB/GLOB Ratio 0.5 RATIO (0.9-2.4); AST(SGOT) 71 U/L (15-37); Alanine Aminotransfer ALT/SGPT 56 U/L (16-61); Alkaline Phosphatase 112 U/L (45-117); Anion Gap 10 (5-15); BUN 97 mg/dL (7-18); BUN/Creat Ratio 21.5 RATIO (10-20); Chloride 102 mmol/L (98-107); Creatinine, Serum 4.52 mg/dL (0.70-1.30); EST Glomerular Filtration Rate 13 mL/min (>60); Est Glom Filt Rate - Afr Amer 16 mL/min (>60); Estimated Creatinine Clearance 13.83 ml/min; Globulin 4.1 g/dL (2.2-4.2); Glucose 261 mg/dL (74-106); Potassium 4.3 mmol/L (3.5-5.1); Protein, Total 6.1 g/dL (6.4-8.2); Sodium Level 134 mmol/L (136-145); Troponin-I HS 25 pg/mL (3.0-78.0)
[2021-11-13 11:56] LABS: White Blood Cells 10-25 SEEN /hpf (0-5)
[2021-11-13 11:57] LABS: Bacteria 2+ /hpf (None Seen); Red Blood Cells-Urine > 100 SEEN /hpf (0-5)
[2021-11-13 11:59] LABS: Differential Comment SCANNED
[2021-11-13 13:27] VITALS: BP 126/78; PULSE 66; PULSE 68; RESP 16; TEMP 36.9; O2SAT 98
--- NOTE | 2021-11-13 13:31 | US_ITS ---
STUDY: RENAL ULTRASOUND - COMPLETE REASON FOR EXAM: Male, 81 years old. [place] TECHNIQUE: Ultrasound evaluation of the kidneys was performed with real-time and static duran-scale imaging. COMPARISON: None. FINDINGS: RIGHT KIDNEY: Normal location of the right kidney, which is normal in size. The right kidney measures 13.6 cm. There is a normal cortex of the right kidney. The renal cortex measures 1.8 cm. There is no right renal mass or cyst. There are no right renal calculi. There is no right hydronephrosis. DISTAL RIGHT URETER: There is non-visualization of the distal right ureter. There is no demonstrated right ureterovesical junction calculus. There is a visualized right ureteral jet. LEFT KIDNEY: Normal location of the left kidney, which is normal in size. The left kidney measures 12.8 cm. There is a normal cortex of the left kidney. The renal cortex measures 2.2 cm. 1.5 cm cyst lower pole the left kidney. There are no left renal calculi. There is no left hydronephrosis. DISTAL LEFT URETER: There is non-visualization of the distal left ureter. There is no demonstrated left ureterovesical junction calculus. There is a visualized left ureteral jet. BLADDER: Abdalla catheter within the collapsed bladder.. US/Kidney and Bladder IMPRESSION: No hydronephrosis to suggest obstruction. Electronically Signed: Jeremy Matamoros MD at 15:45 EDT ,
--- NOTE | 2021-11-13 13:32 | HP.PCM.HOS_ITS ---
HPI - General HPI Narrative CHRISTIANO ESTRELLA, is a 81 M who presented to the emergency department at [facility] on 11/13/2021 with a chief complaint of weakness. Patient presented initially to the emergency department on 11/11/2021 at which time he had symptoms consistent with urinary retention. That have been ongoing for a few weeks and he was having discomfort in the suprapubic area as well as fevers. His called the primary care physician at that time and they recommended he be evaluated the emergency department. A UA was obtained at that time and was consistent with infection and therefore culture was sent. The patient is INR was elevated at 4.0 and he was asked to hold his Coumadin which she takes at [facility] for chronic atrial fibrillation. Abdalla was placed and he was discharged with Keflex and a Abdalla with instructions to follow-up with his primary care physician for an INR and given a referral to Dr. Flores for urological evaluation. Unfortunately the patient is p.o. intake has been poor and he is developed weakness and is having difficulty helping his take care of himself at this point. His fevers have resolved and his primary complaints are weakness and lack of oral intake. He is currently having trouble walking because of the weakness. His vital signs the emergency department were overall unremarkable with a temp of 98.4, pulse of 68, blood pressure 126/78, respiratory rate of 16 and oxygen saturation of 98% on room air. His CBC shows an improving left shift with a mild thrombocytopenia with a platelet count of 134,000 which is new, but is otherwise unremarkable. His INR is currently 7.7 up from 4.0 on 11/11/2021. His chemistry panel showed a sodium of 134, BUN of 97 and serum creatinine of 4.52. His baseline serum creatinine is unknown however he had a relatively normal serum creatinine 1.30 two years ago. Serum glucose was 261 and his bilirubin was slightly elevated 1.3 with an AST of 71. His chest x-ray was negative for any acute cardiopulmonary disease. His EKG shows chronic stable atrial fibrillation without any signs of ischemic changes. His UA shows a specific gravity of 1.015 consistent with some dehydration, proteinuria, occult blood, urobilinogen, and leukoesterase. He still has bacteria and white cells in his urine. Urine cultures from 11/11/2021 are reviewed and are showing Klebsiella. The organism seems to be fairly sensitive. The patient will be admitted to the medical surgical floor for IV hydration, therapy services, IV antibiotics with ceftriaxone for his UTI and further work- up for his acute kidney injury. [facility] Medical History Arthritis Atrial fibrillation Diabetes Hearing problem High blood pressure High cholesterol Prostate enlargement Skin cancer Home Medications glucosamine HCl 1,500 mg tablet 1,500 mg PO BID tab 03/15/19 [History Last Taken Unknown] lisinopril 10 mg tablet 10 mg PO DAILY 03/15/19 [History Last Taken 04/19/19 07:00 10 MG] metformin 1,000 mg tablet 1,000 mg PO BID 03/15/19 [History Last Taken Unknown] multivitamin 1 tab PO DAILY 03/15/19 [History Last Taken Unknown] simvastatin 20 mg tablet 20 mg PO QPM 03/15/19 [History Last Taken Unknown] warfarin 6 mg PO SUMOTUWEFRSA #30 04/19/19 [Rx Last Taken Unknown] warfarin 9 mg PO TH #30 04/19/19 [Rx Last Taken Unknown] cephalexin 500 mg PO TID #21 cap 11/11/21 [Rx Last Taken Unknown] Allergy/AdvReac Type Severity Reaction Status Date / Time No Known Allergies Allergy Verified 11/13/21 10:50 Family History Mother Cancer Heart disease Hypertension Daughter Cancer Surgical History (Updated 11/13/21 @ 14:[address] Noelle Montilla DO) Hx of basal cell carcinoma excision Social History (Updated 11/13/21 @ 14:[address] Noelle Montilla DO) household members: spouse housing: house Smoking Status: Former smoker alcohol intake: never substance use type: does not use additional social history: DOES USE ASPIRIN DOES USE IBUPROFEN ROS Constitutional Constitutional: Reports anorexia, fatigue and weakness; Denies change in weight, chills, fever(s), malaise, night sweats or other Eyes Eyes: Denies blurry vision, change in eye color, change in vision, discharge from eye(s), double vision, erythema, eye pain, loss of vision or other ENT HEENT: Denies abnormal hearing, dysphagia, ear pain, epistaxis, headache(s), hearing loss, nasal congestion, nasal discharge, post nasal drip, sinus pressure, sore throat or other Cardiovascular Cardiovascular: Denies chest pain, claudication, dyspnea on exertion, edema, lightheadedness, orthopnea, palpitations, paroxysmal nocturnal dyspnea, rapid heart rate, syncope or other Respiratory/Chest Respiratory/Chest: Denies cough, dyspnea, excessive phlegm production, hemoptysis, productive cough, shortness of breath at rest, shortness of breath with exertion, wheezing or other Gastrointestinal Gastrointestinal: Denies abdominal pain, coffee ground emesis, constipation, diarrhea, dyspepsia, hematemesis, hematochezia, loose stools, melena, nausea, vomiting or other Genitourinary Genitourinary: Reports difficulty urinating and hematuria; Denies burning urination, dysuria, nocturia, urinary frequency, urinary hesitancy, urinary incontinence, urinary urgency or other Musculoskeletal Musculoskeletal: Reports other Details: Generalized weakness ; Denies arthral gias, back pain, joint pain, joint stiffness, joint swelling, myalgias or neck pain Neurologic Neurologic: Denies abnormal gait, abnormal speech, confusion, disequilibrium, dizziness, focal weakness, headache(s), numbness, paresthesias, seizure-like activity, seizures, syncope, tingling, tremor(s) or other Psychiatric Psychiatric: Denies anxiety, depression, homicidal ideation, suicidal ideation or other Endocrine Endocrinology: Denies change in body appearance, cold intolerance, excessive sweating, heat intolerance, polydipsia, polyuria or other Hematologic/Lymphatic Hematologic/Lymphatic: Denies anemia, easy bleeding, easy bruising, lymphadenopathy or other Allergic/Immunologic Allergic/Immunologic: Denies rhinitis, hives, eczemia, asthma or other Vital Signs Vital Signs Vital Signs: 11/13/21 10:50 11/13/21 10:57 Temperature 98.0 F Temperature Source Temporal Pulse Rate 96 Respiratory Rate 18 Respiratory Effort Normal Respiratory Pattern Normal Blood Pressure 134/58 H Blood Pressure Mean 83 Pulse Ox 97 Oxygen Delivery Method Room Air Weight Weight: 98.43 kg Body Mass Index (BMI) 29.4 Physical Exam Const alert, oriented x3, no apparent distress, healthy appearing and well nourished Constitutional Narrative: Overweight elderly white male lying in bed, at bedside, patient appears comfortable nontoxic General Appearance: cooperative HEENT normocephalic and head/scalp atraumatic HEENT Narrative: Hard of hearing, hearing aids in place, mucous membranes appear a bit dry but not parched, Mallampati is 2-3, no thrush, dentition is poor Eyes PERRL, EOMs intact bilaterally and conjunctivae normal Eyes Narrative: No scleral icterus Neck no lymphadenopathy, supple, no JVD and no carotid bruits Neck Narrative: Trachea midline, no thyroid enlargement Resp normal respiratory effort, no retractions, no use of accessory muscles and clear to auscultation bilaterally Auscultation: Negative for crackles, rales, rhonchi or wheezes Cardio regular rate, S1 normal heart sound, S2 normal heart sound, no murmurs, no rub, no gallops, no clicks and no JVD Cardio Narrative: Irregular regular rhythm GI normal to inspection, nondistended, normoactive bowel sounds, soft to palpation, non-tender and non-distended; Negative for hepatosplenomegaly GI Narrative: Abdalla in place draining blood-tinged urine with clots Extremity no clubbing, cyanosis or edema Peripheral Pulses: Yes pulses 2+ throughout Skin no rashes or lesions noted, no wounds, skin turgor normal, no jaundice, no petechiae and no mottling Neuro oriented x3, CN's II-XII intact bilaterally, moves all extremities and no focal motor deficits Neuro Narrative: Generalized weakness with proximal muscles weaker than distal, lower extremities weaker than upper extremities Sensorium / Orientation: awake and alert Speech: speech normal Psych Psych Narrative: Affect is slightly flat however patient is appropriately interactive Results Lab / Micro Data Attestation: I reviewed the patient's lab results. Result Diagrams: 11/13/21 11:25 11/13/21 11:25 Labs: Laboratory Results - last 24 hr 11/13/21 11:25: WBC 10.0, RBC 4.64, Hgb 13.4, Hct 39.8 L, MCV 85.8, MCH 28.9, MCHC 33.7, RDW Std Deviation 43.8, RDW Coeff of Nicolle 14.0, Plt Count 134 L, MPV 12.1 H, Immature Gran % (Auto) 2.100 H, Neut % (Auto) 84.0 H, Lymph % (Auto) 3.0 L, [place] % (Auto) 10.1 H, Eos % (Auto) 0.3, Baso % (Auto) 0.5, Absolute Neuts (auto) 8.4 H, Absolute Lymphs (auto) 0.30 L, Nucleated RBC % 0, Differential Comment SCANNED 11/13/21 11:25: PT 64.9 H, INR 7.7 H* 11/13/21 11:25: Sodium 134 L, Potassium 4.3, Chloride 102, Carbon Dioxide 22.0, Anion Gap 10, BUN 97 H, Creatinine 4.52 H, Estim Creat Clear Calc 13.83, Est GFR (MDRD) Af Amer 16 L, Est GFR (MDRD) Non-Af 13 L, BUN/Creatinine Ratio 21.5 H, Glucose 261 H, Calcium 9.0, Total Bilirubin 1.30 H, AST 71 H, ALT 56, Alkaline Phosphatase 112, Troponin I High Sens 25, Total Protein 6.1 L, Albumin 2.0 L, Globulin 4.1, Albumin/Globulin Ratio 0.5 L 11/13/21 11:25: Urine Color Yellow, Urine Clarity Cloudy, Urine pH 6.0, Ur Specific [place] 1.015, Urine Protein 100 H, Urine Glucose (UA) Normal, Urine Ketones Negative, Urine Occult Blood 250 H, Urine Nitrite Negative, Urine Bilirubin Negative, Urine Urobilinogen 1 H, Ur Leukocyte Esterase 500 H, Urine RBC > 100 SEEN, Urine WBC 10-25 SEEN, Ur Squamous Epith Cells 0 SEEN, Urine Bacteria 2+, Urine Mucus 0 SEEN Rhythm Strip Rhythm Strip: A-fib Rate: 98 Ectopy: PVC(s) Radiology Impression Chest X-Ray 11/13/21 11:20 IMPRESSION: No acute cardiopulmonary disease. Stable appearance. Electronically Signed: Ke Guevara MD at 12:03 EDT Reading Location ID and State: [facility] / [place] , Service support , Assessment & Plan Assessment/Plan (1) Acute UTI: (2) Acute urinary retention: (3) Supratherapeutic international normalized ratio (INR): (4) JACKI (acute kidney injury): (5) Debility: (6) Hyperglycemia: (7) Thrombocytopenia: PLAN: Acute Klebsiella UTI secondary to urinary retention -Abdalla placed in the emergency department on 11/11/2021 -Patient has had Keflex at home however compliance is questionable since p.o. intake has been poor -Start ceftriaxone with JACKI -Organism appears to be fairly pansensitive -We will need treated for complicated UTI -Start Flomax for urinary retention -May be able to perform a voiding trial prior to discharge depending on INR -We will need referral to urology at discharge JACKI on CKD stage IIIa -Signs serum creatinine is unknown but last available was from 2019 and serum creatinine was 1.3 -Patient and family report no known history of renal dysfunction -Check retroperitoneal ultrasound -Check urine lytes -IV hydration with normal saline at 100 cc/h -Repeat BMP in a.m. -Abdalla catheter to remain in place -Hold lisinopril -Hold metformin -Avoid nephrotoxins as able Thrombocytopenia -Acute -Mild -May be related to antibiotics/infection -Repeat CBC in a.m. DM-2 with hyperglycemia -Blood sugar 261 on admission laboratory data -Hold home metformin -Check hemoglobin A1c -Moderate dose sliding scale 3 times daily with meals -Lantus 6 units at bedtime Supratherapeutic INR -Likely related to poor p.o. intake, antibiotics, infection, JACKI -Hold Coumadin -Last dose was Monday -Check daily INR -We will give 2.5 mg of vitamin K with hematuria -So far CBC is stable -Repeat CBC in a.m. Debility -Patient with significant generalized weakness/decreased p.o. intake -Ensure for supplementation -Encourage oral hydration -PT/OT consultation Hypertension -Hold lisinopril -As needed hydralazine Hyperlipidemia -Continue simvastatin Chronic atrial fibrillation -Patient is not on any medications for rate control -Hold Coumadin secondary to supratherapeutic INR Osteoarthritis -Hold home glucosamine DVT prophylaxis -INR is supratherapeutic at 7.7 CODE STATUS -Full code as discussed with the patient on admission; was at bedside Charges/Coding Visit Charges Inpatient E&M: 15491 Init Hosp L3
--- NOTE | 2021-11-13 13:35 | NURSING ---
MED SURG HALEY LYONS, DEBILITY
[2021-11-13 14:19] LABS: Urine Sodium 19 mmol/L (Not Establ.)
[2021-11-13 14:27] LABS: Hemoglobin A1c 6.7 % (3.8-5.6)
[2021-11-13 14:52] VITALS: BP 147/42; PULSE 90; RESP 20; TEMP 37.5; O2SAT 97
[2021-11-13 15:24] VITALS: O2SAT 97
[2021-11-13] MEDS: 0.9% Normal Saline 1,000 ML 100 ML IV (15:41)
[2021-11-13] MEDS: 0.9% Saline Lock 10 ML Syringe IV (15:41)
[2021-11-13] MEDS: Glucerna Shake 120 ML LIQUID PO ×3 (15:45→21:17)
[2021-11-13 15:47] VITALS: BMI 28.5
[2021-11-13] MEDS: Phytonadione (Vit K1) 5 MG TABLET 2.5 MG PO (16:05)
[2021-11-13] MEDS: Ceftriaxone 1 GM/50 ML BAG IV (16:06)
[2021-11-13 16:16] LABS: Bedside Glucose 215 mg/dL (74-106)
[2021-11-13] MEDS: Tamsulosin HCl 0.4 MG Capsule PO (17:45)
[2021-11-13] MEDS: Insulin Lispro 100 UNIT/ML INSULN.PEN SC (17:46)
[2021-11-13 19:00] VITALS: BP 130/41; PULSE 92; RESP 18; TEMP 36.8; O2SAT 95
[2021-11-13] MEDS: Atorvastatin Calcium 10 MG Tablet PO (21:14)
[2021-11-13] MEDS: Insulin Glargine-YFGN 100 UNIT/ML Pen 6 UNIT SC (21:21)
[2021-11-13 21:26] LABS: Bedside Glucose 266 mg/dL (74-106)
--- NOTE | 2021-11-13 22:31 | NURSING ---
PT RESQUESTING ANTACID - DR LING NOTIFIED
[2021-11-14] MEDS: 0.9% Normal Saline 1,000 ML 100 ML IV ×3 (00:59→20:32)
[2021-11-14 01:00] VITALS: BP 111/37; PULSE 91; RESP 18; TEMP 36.8; O2SAT 94
[2021-11-14 06:22] LABS: Absolute Lymphocyte Count 0.48 X10^3/uL (0.83-4.51); Absolute Neutrophil Count 8.6 X10^3/uL (2.0-7.7); Basophil# 0.05 X10^3/uL; Basophil% 0.5 % (0-1); Eosinophil# 0.06 X10^3/uL; Eosinophils% 0.6 % (0-5); Hematocrit 32.9 % (40-54); Hemoglobin 11.2 g/dL (13.0-16.5); Lymphocyte # 0.48 X10^3/ul (0.83-4.51); Lymphocyte % 4.6 % (19-41); Mean Corpuscular Hgb 28.9 pg (27.0-32.0); Mean Corpuscular Volume 84.8 fL (80-94); Mean Platelet Vol. 12.2 fl (6.2-12.0); Monocyte# 1.14 X10^3/uL; Monocyte% 10.9 % (0-10); NRBC Flagged by Analyzer 0 % (0-5); Neutrophil # 8.57 X10^3/uL (2.7-7.7); Neutrophil % 81.8 % (47-70); POSITIVE DIFFERENTIAL YES; POSITIVE MORPHOLOGY YES; Platelet Count 147 K/mm3 (150-450); RBC Distribution Width CV 14.2 % (11.6-14.6); RBC Distribution Width SD 43.9 fl (35.1-43.9); Red Blood Count 3.88 M/mm3 (4.6-6.2); White Blood Count 10.5 K/mm3 (4.4-11.0)
[2021-11-14 06:24] LABS: Differential Indicated SCAN CRITERIA MET
[2021-11-14 06:32] LABS: International Normalized Ratio 5.9; Prothrombin Time (Protime)PT. 52.9 SECONDS (11.7-14.9)
[2021-11-14] MEDS: Insulin Lispro 100 UNIT/ML INSULN.PEN SC ×3 (06:34→17:26)
[2021-11-14 06:36] VITALS: BP 105/47; PULSE 86; RESP 18; TEMP 36.7; O2SAT 94
[2021-11-14 06:41] LABS: Bedside Glucose 202 mg/dL (74-106)
[2021-11-14 06:59] LABS: ALB/GLOB Ratio 0.5 RATIO (0.9-2.4); AST(SGOT) 163 U/L (15-37); Alanine Aminotransfer ALT/SGPT 110 U/L (16-61); Albumin, Serum 1.7 g/dL (3.2-5.0); Alkaline Phosphatase 119 U/L (45-117); Anion Gap 12 (5-15); BUN 112 mg/dL (7-18); BUN/Creat Ratio 25.2 RATIO (10-20); Calcium,Total 8.2 mg/dL (8.5-10.1); Chloride 109 mmol/L (98-107); Creatinine, Serum 4.45 mg/dL (0.70-1.30); EST Glomerular Filtration Rate 14 mL/min (>60); Est Glom Filt Rate - Afr Amer 16 mL/min (>60); Estimated Creatinine Clearance 14.05 ml/min; Globulin 3.5 g/dL (2.2-4.2); Glucose 231 mg/dL (74-106); Magnesium 2.3 mg/dL (1.6-2.6); Phosphorus 3.9 mg/dL (2.5-4.9); Potassium 4.2 mmol/L (3.5-5.1); Protein, Total 5.2 g/dL (6.4-8.2); Sodium Level 138 mmol/L (136-145)
[2021-11-14] MEDS: Multivitamins,Therapeutic Tablet 1 TABLET PO (08:16)
[2021-11-14] MEDS: 0.9% Normal Saline 1,000 ML 999 ML IV (08:18)
[2021-11-14 09:36] VITALS: BP 115/47; PULSE 78; RESP 18; TEMP 36.7; O2SAT 94
[2021-11-14] MEDS: Glucerna Shake 120 ML LIQUID PO ×2 (09:47→21:54)
[2021-11-14] MEDS: Ceftriaxone 1 GM/50 ML BAG IV (09:49)
[2021-11-14 11:41] LABS: Bedside Glucose 300 mg/dL (74-106)
--- NOTE | 2021-11-14 12:23 | PCM.PN.HOSP ---
Subjective Subjective Ports that he is feeling better today. He was able to get up to a chair without any significant difficulty using a walker and standby assist of 2. He states that this is better than yesterday. He is currently eating breakfast. No specific complaints this morning. Objective Data Objective Data Vital Signs: Vital Signs Temp Pulse Resp BP Pulse Ox 98.0 F 78 18 115/47 L 94 11/14/21 09:36 11/14/21 09:36 11/14/21 09:36 11/14/21 09:36 11/14/21 09:36 Oxygen Delivery Method Room Air Weight: 95.663 kg Body Mass Index (BMI) 28.5 Intake & Output: Intake and Output for Last 24 Hours 11/12/21 11/13/21 11/14/21 23:59 23:59 23:59 Intake Total 1350 / 1470 3576.67 / 3576.67 Output Total 450 / 900 900 / 900 Balance 900 / 570 2676.67 / 2676.67 Lab / Micro Data Result Diagrams: 11/14/21 05:48 11/14/21 05:48 Labs: Laboratory Results - last 24 hr 11/13/21 11:20: Hemoglobin A1c 6.7 H 11/13/21 11:25: Ur Random Sodium 19, Urine Creatinine 74.50 11/13/21 16:11: POC Glucose 215 H 11/13/21 21:20: POC Glucose 266 H 11/14/21 05:48: WBC 10.5, RBC 3.88 L, Hgb 11.2 L, Hct 32.9 L, MCV 84.8, MCH 28.9, MCHC 34.0, RDW Std Deviation 43.9, RDW Coeff of Nicolle 14.2, Plt Count 147 L, MPV 12.2 H, Immature Gran % (Auto) 1.600 H, Neut % (Auto) 81.8 H, Lymph % (Auto) 4.6 L, [place] % (Auto) 10.9 H, Eos % (Auto) 0.6, Baso % (Auto) 0.5, Absolute Neuts (auto) 8.6 H, Absolute Lymphs (auto) 0.48 L, Nucleated RBC % 0 11/14/21 05:48: PT 52.9 H, INR 5.9 H* 11/14/21 05:48: Sodium 138, Potassium 4.2, Chloride 109 H, Carbon Dioxide 17.0 L, Anion Gap 12, BUN 112 H*, Creatinine 4.45 H, Estim Creat Clear Calc 14.05, Est GFR (MDRD) Af Amer 16 L, Est GFR (MDRD) Non-Af 14 L, BUN/Creatinine Ratio 25.2 H, Glucose 231 H, Calcium 8.2 L, Phosphorus 3.9, Magnesium 2.3, Total Bilirubin 1.20 H, AST 163 H, ALT 110 H, Alkaline Phosphatase 119 H, Total Protein 5.2 L, Albumin 1.7 L, Globulin 3.5, Albumin/Globulin Ratio 0.5 L 11/14/21 06:33: POC Glucose 202 H 11/14/21 11:38: POC Glucose 300 H Radiography Diagnostic Testing: Radiology Impression Renal Ultrasound 11/13/21 13:31 IMPRESSION: No hydronephrosis to suggest obstruction. Electronically Signed: Jeremy Matamoros MD at 15:45 EDT , Rhythm Strip Rhythm Strip: A-fib Rate: 98 Ectopy: PVC(s) Physical Exam Const alert, oriented x3, no apparent distress, healthy appearing and well nourished Constitutional Narrative: Overweight elderly white male sitting up in a chair at the bedside, nurses aides in the room as he is just gotten up to the chair. Getting ready to eat his breakfast, appears comfortable and nontoxic, patient is extremely hard of hearing and his took his hearing aids home as they General Appearance: cooperative Exam Limitations: physical limitations Nutritional Appearance: overweight HEENT normocephalic and head/scalp atraumatic; Negative for dentition normal HEENT Narrative: Poor dentition, Mallampati 2, no thrush, extremely hard of hearing Head and Scalp: normocephalic Resp normal respiratory effort, no retractions, no use of accessory muscles and clear to auscultation bilaterally Auscultation: Negative for crackles, rales, rhonchi or wheezes Cardio regular rate, S1 normal heart sound, S2 normal heart sound, no murmurs, no rub, no gallops, no clicks and no JVD Cardio Narrative: Irregular regular rhythm GI normal to inspection, nondistended, normoactive bowel sounds, soft to palpation, non-tender and non-distended; Negative for hepatosplenomegaly GI Narrative: Abdalla in place draining blood-tinged urine with clots Extremity no clubbing, cyanosis or edema Peripheral Pulses: Yes pulses 2+ throughout Skin no rashes or lesions noted, no wounds, skin turgor normal, no jaundice, no petechiae and no mottling Neuro oriented x3, moves all extremities and no focal motor deficits Sensorium / Orientation: awake and alert Speech: speech normal Psych affect normal Assessment & Plan Assessment/Plan (1) Acute UTI: (2) Acute urinary retention: (3) Supratherapeutic international normalized ratio (INR): (4) JACKI (acute kidney injury): (5) Debility: (6) Hyperglycemia: (7) Thrombocytopenia: PLAN: Acute Klebsiella UTI secondary to urinary retention -Abdalla placed in the emergency department on 11/11/2021 -Patient has had Keflex at home however compliance is questionable since p.o. intake has been poor -Continue ceftriaxone day 2 -We will need treated for complicated UTI -Continue Flomax -May be able to perform a voiding trial prior to discharge depending on INR -We will need referral to urology at discharge JACKI on CKD stage IIIa -Signs serum creatinine is unknown but last available was from 2019 and serum creatinine was 1.3 -Patient and family report no known history of renal dysfunction -Serum creatinine is relatively stable today and hopefully with continued hydration we will see a reduction in his serum creatinine slowly over time -Retroperitoneal ultrasound is unimpressive -FeNa is consistent with prerenal etiology -Continue IV hydration with normal saline at 100 cc/h -Repeat BMP in a.m. -Abdalla catheter to remain in place -Hold lisinopril -Hold metformin -Avoid nephrotoxins as able -Consult nephrology Thrombocytopenia -Acute -Remains mild -Stable -May be related to antibiotics/infection -Repeat CBC in a.m. DM-2 with hyperglycemia -Blood sugar 261 on admission laboratory data -Hold home metformin -Hemoglobin A1c was 6.7 indicating good control with current regimen -Suspect elevations are related to acute infection -Will continue current insulin regimens and follow -Moderate dose sliding scale 3 times daily with meals -Increase Lantus 10 units at bedtime Supratherapeutic INR -Likely related to poor p.o. intake, antibiotics, infection, JACKI -Hold Coumadin -Last dose was Monday -INR is trending down was 7.7 yesterday and down to 5.9 today -Check daily INR -2.5 mg of vitamin K was given at admission secondary to ongoing hematuria -CBC remains relatively stable as drop was likely related to hydration -Repeat CBC in a.m. Debility -Patient with significant generalized weakness/decreased p.o. intake -Ensure for supplementation -Encourage oral hydration -PT/OT to follow Hypertension -Hold lisinopril -Blood pressures are currently stable -As needed hydralazine Hyperlipidemia -Continue simvastatin Chronic atrial fibrillation -Patient is not on any medications for rate control -Hold Coumadin secondary to supratherapeutic INR Osteoarthritis -Hold home glucosamine DVT prophylaxis -INR is supratherapeutic at 5.9 CODE STATUS -Full code as discussed with the patient on admission; was at bedside Charges/Coding Visit Charges Inpatient E&M: 97276 Subs Hosp L2
[2021-11-14 13:33] VITALS: BP 111/52; PULSE 74; RESP 18; TEMP 36.7; O2SAT 95
[2021-11-14 16:06] LABS: Bedside Glucose 252 mg/dL (74-106)
[2021-11-14 17:15] VITALS: BP 108/68; PULSE 70; RESP 18; TEMP 36.7; O2SAT 95
[2021-11-14] MEDS: Tamsulosin HCl 0.4 MG Capsule PO (18:04)
--- NOTE | 2021-11-14 20:22 | CON.PCM.RE_ITS ---
Assessment & Plan Assessment/Plan (1) JACKI (acute kidney injury): PLAN: baseline cr last known is from 2019. no recent labs in [facility] system either. initially had urinary retention, bright in place, renal US without hydronephrosis now UA reviewed. but bright in hence not very reliable ? prerenal continue fluids for now no NSAIDs no recent contrast HPI Consult Data Date of Consult: 11/14/21 HPI Narrative HPI Narrative: CHRISTIANO ESTRELLA, is a 81 M who presents to the hospital with generalized weakness. renal consulted for JACKI. he initially presented to ER 2 days ago with inability to urinate. cr was elevated that visit. bright was placed and discharged home. came back with worsening weakness. found to have JACKI. denies any GI symptoms. no NSAIDs. baseline cr recent? last seen value is from 2019. currently denies any complaints. [facility] Medical History Arthritis Atrial fibrillation Diabetes Hearing problem High blood pressure High cholesterol Prostate enlargement Skin cancer Home Medications glucosamine HCl 1,500 mg tablet 1,500 mg PO BID tab 03/15/19 [History Last Taken 11/12/21] lisinopril 10 mg tablet 10 mg PO DAILY 03/15/19 [History Last Taken 11/13/21] metformin 1,000 mg tablet 1,000 mg PO BID 03/15/19 [History Last Taken 11/13/21] multivitamin 1 tab PO DAILY 03/15/19 [History Last Taken 11/12/21] simvastatin 20 mg tablet 20 mg PO QPM 03/15/19 [History Last Taken Unknown] warfarin 6 mg PO SUMOTUWEFRSA #30 04/19/19 [Rx Last Taken 11/10/21] warfarin 9 mg PO TH #30 04/19/19 [Rx Last Taken 11/11/21] cephalexin 500 mg PO TID #21 cap 11/11/21 [Rx Last Taken 11/12/21] Allergy/AdvReac Type Severity Reaction Status Date / Time No Known Allergies Allergy Verified 11/13/21 10:50 Family History Mother Cancer Heart disease Hypertension Daughter Cancer Surgical History (Updated 11/13/21 @ 14:[address] Noelle Montilla DO) Hx of basal cell carcinoma excision Social History (Updated 11/13/21 @ 14:[address] Noelle Montilla, DO) household members: spouse housing: house Smoking Status: Former smoker alcohol intake: never substance use type: does not use additional social history: DOES USE ASPIRIN DOES USE IBUPROFEN ROS ROS Narrative negative except above Physical Exam Narrative Alert awake oriented x 3 no obvious distress no pallor no icterus no JVD s1s2 no murmurs lungs clear abdomen soft no organomegaly no edema no cyanosis bright + Lab / Micro Data Result Diagrams: 11/14/21 05:48 11/14/21 05:48 Labs: Laboratory Results - last 24 hr 11/13/21 21:20: POC Glucose 266 H 11/14/21 05:48: WBC 10.5, RBC 3.88 L, Hgb 11.2 L, Hct 32.9 L, MCV 84.8, MCH 28.9, MCHC 34.0, RDW Std Deviation 43.9, RDW Coeff of Nicolle 14.2, Plt Count 147 L, MPV 12.2 H, Immature Gran % (Auto) 1.600 H, Neut % (Auto) 81.8 H, Lymph % (Auto) 4.6 L, [address] % (Auto) 10.9 H, Eos % (Auto) 0.6, Baso % (Auto) 0.5, Absolute Neuts (auto) 8.6 H, Absolute Lymphs (auto) 0.48 L, Nucleated RBC % 0 11/14/21 05:48: PT 52.9 H, INR 5.9 H* 11/14/21 05:48: Sodium 138, Potassium 4.2, Chloride 109 H, Carbon Dioxide 17.0 L , Anion Gap 12, BUN 112 H*, Creatinine 4.45 H, Estim Creat Clear Calc 14.05, Est GFR (MDRD) Af Amer 16 L, Est GFR (MDRD) Non-Af 14 L, BUN/Creatinine Ratio 25.2 H , Glucose 231 H, Calcium 8.2 L, Phosphorus 3.9, Magnesium 2.3, Total Bilirubin 1.20 H, AST 163 H, ALT 110 H, Alkaline Phosphatase 119 H, Total Protein 5.2 L, Albumin 1.7 L, Globulin 3.5, Albumin/Globulin Ratio 0.5 L 11/14/21 06:33: POC Glucose 202 H 11/14/21 11:38: POC Glucose 300 H 11/14/21 15:56: POC Glucose 252 H Rhythm Strip Rhythm Strip: A-fib Rate: 98 Ectopy: PVC(s)
[2021-11-14] MEDS: Atorvastatin Calcium 10 MG Tablet PO (20:32)
[2021-11-14 20:38] VITALS: BP 156/82; PULSE 77; RESP 16; TEMP 36.6; O2SAT 100
[2021-11-14] MEDS: Calcium Carbonate 500 MG Tablet PO (21:50)
[2021-11-14] MEDS: Insulin Glargine-YFGN 100 UNIT/ML Pen 10 UNIT SC (21:53)
[2021-11-14 22:01] LABS: Bedside Glucose 213 mg/dL (74-106)
--- NOTE | 2021-11-14 22:12 | NURSING ---
spoke to pt, states ok to give information to floyd Bonilla, called registration to put rodrick on contact info.
[2021-11-15 02:20] VITALS: BP 127/72; PULSE 78; RESP 16; TEMP 36.6; O2SAT 98
[2021-11-15] MEDS: 0.9% Normal Saline 1,000 ML 100 ML IV ×2 (06:29→17:15)
[2021-11-15] MEDS: Insulin Lispro 100 UNIT/ML INSULN.PEN SC ×3 (06:29→17:16)
[2021-11-15 06:39] LABS: Anion Gap 9 (5-15); BUN 107 mg/dL (7-18); BUN/Creat Ratio 26.3 RATIO (10-20); Calcium,Total 8.2 mg/dL (8.5-10.1); Chloride 110 mmol/L (98-107); Creatinine, Serum 4.07 mg/dL (0.70-1.30); EST Glomerular Filtration Rate 15 mL/min (>60); Est Glom Filt Rate - Afr Amer 18 mL/min (>60); Estimated Creatinine Clearance 15.36 ml/min; Glucose 207 mg/dL (74-106); Potassium 4.5 mmol/L (3.5-5.1); Sodium Level 136 mmol/L (136-145)
[2021-11-15 06:40] LABS: Bedside Glucose 187 mg/dL (74-106)
[2021-11-15 08:15] VITALS: O2SAT 98
[2021-11-15 08:30] VITALS: BP 132/46; PULSE 73; RESP 16; TEMP 36.5; O2SAT 98
[2021-11-15] MEDS: Multivitamins,Therapeutic Tablet 1 TABLET PO (10:08)
[2021-11-15] MEDS: Ceftriaxone 1 GM/50 ML BAG IV (10:09)
[2021-11-15 11:11] LABS: Prothrombin Time (Protime)PT. 38.9 SECONDS (11.7-14.9)
[2021-11-15] MEDS: Glucerna Shake 120 ML LIQUID PO ×2 (14:05→17:24)
[2021-11-15 14:30] VITALS: BP 120/82; PULSE 62; RESP 16; TEMP 36.7; O2SAT 97
--- NOTE | 2021-11-15 15:37 | PN.HOSP_ITS ---
Subjective Subjective Patient was seen and examined today, his son was in his room today and I discussed the patient's medical care with him also. Patient's INR has dropped to 4 today, his creatinine now is 4.07, BUN was 107. Objective Data Objective Data Vital Signs: Vital Signs Temp Pulse Resp BP Pulse Ox 98.0 F 62 16 120/82 H 97 11/15/21 14:30 11/15/21 14:30 11/15/21 14:30 11/15/21 14:30 11/15/21 14:30 Oxygen Delivery Method Room Air Weight: 95.663 kg Body Mass Index (BMI) 28.5 Intake & Output: Intake and Output for Last 24 Hours 11/13/21 11/14/21 11/15/21 23:59 23:59 23:59 Intake Total 1350 / 1470 4998.34 / 4998.34 1345 / 1345 Output Total 450 / 900 2525 / 2525 1435 / 1435 Balance 900 / 570 2473.34 / 2473.34 -90 / -90 Lab / Micro Data Result Diagrams: 11/14/21 05:48 11/15/21 05:20 Labs: Laboratory Results - last 24 hr 11/14/21 15:56: POC Glucose 252 H 11/14/21 21:49: POC Glucose 213 H 11/15/21 05:20: Sodium 136, Potassium 4.5, Chloride 110 H, Carbon Dioxide 17.0 L , Anion Gap 9, BUN 107 H*, Creatinine 4.07 H, Estim Creat Clear Calc 15.36, Est GFR (MDRD) Af Amer 18 L, Est GFR (MDRD) Non-Af 15 L, BUN/Creatinine Ratio 26.3 H , Glucose 207 H, Calcium 8.2 L 11/15/21 06:28: POC Glucose 187 H 11/15/21 10:50: PT 38.9 H, INR 4.0 H* Rhythm Strip Rhythm Strip: A-fib Rate: 98 Ectopy: PVC(s) Physical Exam Const alert, oriented x3, no apparent distress, average body habitus and healthy appearing General Appearance: cooperative, well kempt and well developed Orientation / Consciousness: awake, oriented to person, oriented to place and oriented to time HEENT normocephalic, head/scalp atraumatic and moist oral mucous membranes Head and Scalp: normocephalic Eyes PERRL, EOMs intact bilaterally and conjunctivae normal Neck nuchal rigidity, supple, no JVD, thyroid normal and no carotid bruits General: trachea midline Resp normal respiratory effort, no retractions, no use of accessory muscles and clear to auscultation bilaterally Auscultation: Negative for rales, rhonchi or wheezes Cardio regular rate, regular rhythm, S1 normal heart sound, S2 normal heart sound, no murmurs, no rub and no gallops GI normal to inspection, nondistended, normoactive bowel sounds, soft to palpation, non-tender and non-distended Extremity no clubbing, cyanosis or edema Skin no rashes or lesions noted General Skin Exam: no breakdown Neuro oriented x3, CN's II-XII intact bilaterally, no focal motor deficits and no sensory deficits noted Sensorium / Orientation: awake and alert Speech: speech normal Psych affect normal Assessment & Plan Assessment/Plan (1) Acute UTI: PLAN: 1. Acute kidney injury-probably secondary to acute bladder outlet obstruction, continue to give IV fluids and monitor creatinine, nephrology seeing the patient #2 acute cystitis secondary to Klebsiella pneumoniae-I will change the patient over to oral antibiotics starting tomorrow, patient received Rocephin today #3 supratherapeutic INR-etiology unclear, INR will be rechecked tomorrow #4 hyperbilirubinemia and liver enzyme elevations-I will repeat the patient's liver profile tomorrow Charges/Coding Visit Charges Inpatient E&M: 76960 [facility] L3
[2021-11-15 16:35] LABS: Bedside Glucose 280 mg/dL (74-106)
[2021-11-15 16:40] LABS: Bedside Glucose 226 mg/dL (74-106)
[2021-11-15] MEDS: Tamsulosin HCl 0.4 MG Capsule PO (17:15)
[2021-11-15 20:47] VITALS: BP 124/53; PULSE 70; RESP 16; TEMP 37.1; O2SAT 97
--- NOTE | 2021-11-15 21:33 | PN.RENAL_ITS ---
Subjective Subjective no new events Objective Data Objective Data Vital Signs: Vital Signs Temp Pulse Resp BP Pulse Ox 98.8 F 70 16 124/53 H 97 11/15/21 20:47 11/15/21 20:47 11/15/21 20:47 11/15/21 20:47 11/15/21 20:47 Oxygen Delivery Method Room Air Weight: 95.663 kg Body Mass Index (BMI) 28.5 Intake & Output: Intake and Output for Last 24 Hours 11/13/21 11/14/21 11/15/21 23:59 23:59 23:59 Intake Total 1350 / 1470 4998.34 / 4998.34 2695 / 2695 Output Total 450 / 900 2525 / 2525 2035 / 2035 Balance 900 / 570 2473.34 / 2473.34 660 / 660 Lab / Micro Data Result Diagrams: 11/14/21 05:48 11/15/21 05:20 Labs: Laboratory Results - last 24 hr 11/14/21 21:49: POC Glucose 213 H 11/15/21 05:20: Sodium 136, Potassium 4.5, Chloride 110 H, Carbon Dioxide 17.0 L , Anion Gap 9, BUN 107 H*, Creatinine 4.07 H, Estim Creat Clear Calc 15.36, Est GFR (MDRD) Af Amer 18 L, Est GFR (MDRD) Non-Af 15 L, BUN/Creatinine Ratio 26.3 H , Glucose 207 H, Calcium 8.2 L 11/15/21 06:28: POC Glucose 187 H 11/15/21 10:50: PT 38.9 H, INR 4.0 H* 11/15/21 11:26: POC Glucose 280 H 11/15/21 16:38: POC Glucose 226 H Rhythm Strip Rhythm Strip: A-fib Rate: 98 Ectopy: PVC(s) Physical Exam Narrative Alert awake oriented x 3 no obvious distress no pallor no icterus no JVD s1s2 no murmurs lungs clear abdomen soft no organomegaly no edema no cyanosis bright + Assessment & Plan Assessment/Plan (1) JACKI (acute kidney injury): PLAN: baseline cr last known is from 2019. no recent labs in [facility] system either. initially had urinary retention, bright in place, renal US without hydronephrosis now UA reviewed. but bright in hence not very reliable ? prerenal continue fluids for now no NSAIDs no recent contrast cr better
[2021-11-15] MEDS: Insulin Glargine-YFGN 100 UNIT/ML Pen 10 UNIT SC (22:30)
[2021-11-15] MEDS: Atorvastatin Calcium 10 MG Tablet PO (22:31)
[2021-11-15 22:40] LABS: Bedside Glucose 274 mg/dL (74-106)
[2021-11-16 02:50] VITALS: BP 139/62; PULSE 83; RESP 16; TEMP 37.1; O2SAT 96
[2021-11-16] MEDS: 0.9% Normal Saline 1,000 ML 100 ML IV ×2 (02:55→16:24)
[2021-11-16 05:39] LABS: Absolute Lymphocyte Count 0.61 X10^3/uL (0.83-4.51); Absolute Neutrophil Count 10.9 X10^3/uL (2.0-7.7); Basophil# 0.06 X10^3/uL; Basophil% 0.5 % (0-1); Eosinophil# 0.09 X10^3/uL; Eosinophils% 0.7 % (0-5); Hematocrit 30.4 % (40-54); Hemoglobin 10.1 g/dL (13.0-16.5); Lymphocyte # 0.61 X10^3/ul (0.83-4.51); Lymphocyte % 4.6 % (19-41); Mean Corp Hgb Conc 33.2 g/dL (32-36); Mean Corpuscular Volume 84.2 fL (80-94); Mean Platelet Vol. 11.4 fl (6.2-12.0); Monocyte# 1.15 X10^3/uL; Monocyte% 8.7 % (0-10); NRBC Flagged by Analyzer 0 % (0-5); Neutrophil # 10.87 X10^3/uL (2.7-7.7); Neutrophil % 81.9 % (47-70); POSITIVE MORPHOLOGY YES; Platelet Count 263 K/mm3 (150-450); RBC Distribution Width CV 14.4 % (11.6-14.6); RBC Distribution Width SD 44.3 fl (35.1-43.9); Red Blood Count 3.61 M/mm3 (4.6-6.2); White Blood Count 13.3 K/mm3 (4.4-11.0)
[2021-11-16 05:40] LABS: Differential Indicated SCAN CRITERIA MET
[2021-11-16 05:56] LABS: Atypical Lymphocyte 1+ %
[2021-11-16 06:03] LABS: AST(SGOT) 150 U/L (15-37); Alanine Aminotransfer ALT/SGPT 169 U/L (16-61); Albumin, Serum 1.6 g/dL (3.2-5.0); Alkaline Phosphatase 143 U/L (45-117); Anion Gap 10 (5-15); BUN 99 mg/dL (7-18); BUN/Creat Ratio 25.3 RATIO (10-20); Calcium,Total 7.9 mg/dL (8.5-10.1); Chloride 113 mmol/L (98-107); Creatinine, Serum 3.92 mg/dL (0.70-1.30); EST Glomerular Filtration Rate 16 mL/min (>60); Est Glom Filt Rate - Afr Amer 19 mL/min (>60); Estimated Creatinine Clearance 15.95 ml/min; Globulin 3.1 g/dL (2.2-4.2); Glucose 221 mg/dL (74-106); Potassium 3.8 mmol/L (3.5-5.1); Protein, Total 4.7 g/dL (6.4-8.2); Sodium Level 140 mmol/L (136-145)
[2021-11-16] MEDS: Insulin Lispro 100 UNIT/ML INSULN.PEN SC ×3 (06:34→16:36)
[2021-11-16 06:51] LABS: Bedside Glucose 216 mg/dL (74-106)
[2021-11-16] MEDS: Multivitamins,Therapeutic Tablet 1 TABLET PO (08:42)
[2021-11-16] MEDS: Glucerna Shake 120 ML LIQUID PO (08:44)
[2021-11-16 08:47] VITALS: BP 151/64; PULSE 70; RESP 20; TEMP 37.1; O2SAT 96
[2021-11-16] MEDS: Ceftriaxone 1 GM/50 ML BAG IV (09:01)
--- NOTE | 2021-11-16 10:16 | US_ITS ---
STUDY: ABDOMINAL ULTRASOUND - RIGHT UPPER QUADRANT REASON FOR VISIT: Male, 81 years old elevated liver enzymes -- ATE @10:25, Made NPO do around 1830, call when ready TECHNIQUE: Ultrasound evaluation of the right upper quadrant was performed with real-time and static napoles-scale imaging. TECHNICAL QUALITY: Adequate. COMPARISON: Renal ultrasound 11/13/2021. FINDINGS: Liver: The liver measures 19.4 cm. There is normal echogenicity of the liver. The bile ducts are within normal limits. There is hepatic color flow. The direction of portal flow is hepatopetal. There is no demonstrated mass lesion. There is free fluid along the inferior margin of the liver. Gallbladder: Normal distended gallbladder. The gallbladder wall measures 3 mm. There is a negative sonographic Capps''s sign. There is no pericholecystic fluid. There are no gallstones. Common Bile Duct (C.B.D.): The common bile duct measures 3 mm. Pancreas: Pancreas is mildly prominent and shows mildly decreased echogenicity suggesting edema. No focal mass. No ductal dilation Right Kidney: Normal size of the right kidney. Right renal length measurement has increased from 13.6 to 14.2 cm. This is most likely due to differences in technique with no renal edema or other suspicious renal findings. Normal renal cortex. No cortical thinning There is no suspicious renal mass or cyst. 11 x10 x 9 mm simple cyst mid kidney. There is no right hydronephrosis. US/Abdomen Limited IMPRESSION: Right upper quadrant free fluid. Mild prominence of the pancreas and decreased density may be indicative of pancreatitis. Please correlate clinically with amylase and lipase levels. Normal liver, right kidney and biliary system. Electronically Signed: Chapincito Damon DO at 20:11 EDT ,
[2021-11-16 10:51] LABS: CPK Total, Creatine Kinase 24 U/L (39-308)
--- NOTE | 2021-11-16 10:55 | CASEMGMT ---
MEGHAN JEROME Face to Face with patient for initial transition planning/care coordination assessment. RN JUSTUS introduced self and role at [facility]. Patient sitting in chair, alert and oriented, very LIME. Patient willing to participate in assessment and is able to answer all questions appropriately. Care providers, pharmacy, and demographics verified. Patient wishes to discharge home, will monitor for HHC pending progress with therapy. Patient states he has no further needs or concerns at this time. CM to follow for discharge planning needs that may arise. PCP: Cedric Specialists: Sandra urologmartha Preferred Pharmacy: [facility] Insurance: [facility] Prescription Benefit: yes Living Will/HPOA: none LNOK: Living Arrangements: Patient lives with in a single story home with 2 steps and railing to enter the home. Patient states he was independent at home. Transportation: self, DME/HHC: Patient denies DME at home. Currently using walker in room. Patient has no preferences for DME. No previous HHC or SNF. Patient denying needs at discharge. Will monitor progress with therapy. Disposition Plan: Patient to discharge home with family support and follow-up plans in place. Will monitor for HHC and walker at discharge. Tiffany LEGGETT, RN, CM
--- NOTE | 2021-11-16 12:06 | NURSING ---
1150; SPOKE WITH PT BRODY SHE HAS CONCERNS OF PT COMING HOME AND IF SHE WILL BE ABLE TO CARE FOR PT. CONCERNS VERBALIZED TO ARIELA BLAKE RN CM. SHE WILL FOLLOW UP WITH PT AND .
--- NOTE | 2021-11-16 12:18 | PN.HOSP_ITS ---
Subjective Subjective Patient was seen and examined today, he has no complaints of any chills, fever, or shortness of breath. I talked briefly with his son today, patient's liver functions are still elevated, I have ordered an ultrasound of the abdomen with attention to the liver and gallbladder. Patient's bilirubin however is normal. His creatinine has decreased slightly today and his INR today was 4. Objective Data Objective Data Vital Signs: Vital Signs Temp Pulse Resp BP Pulse Ox 98.8 F 70 20 H 151/64 H 96 11/16/21 08:47 11/16/21 08:47 11/16/21 08:47 11/16/21 08:47 11/16/21 08:47 Oxygen Delivery Method Room Air Weight: 95.663 kg Body Mass Index (BMI) 28.5 Intake & Output: Intake and Output for Last 24 Hours 11/14/21 11/15/21 11/16/21 23:59 23:59 23:59 Intake Total 4998.34 / 4998.34 2695 / 2695 2283.34 / 2283.34 Output Total 2525 / 2525 2035 / 2035 1450 / 1450 Balance 2473.34 / 2473.34 660 / 660 833.34 / 833.34 Lab / Micro Data Result Diagrams: 11/16/21 05:25 11/16/21 05:25 Labs: Laboratory Results - last 24 hr 11/15/21 11:26: POC Glucose 280 H 11/15/21 16:38: POC Glucose 226 H 11/15/21 22:29: POC Glucose 274 H 11/16/21 05:25: WBC 13.3 H, RBC 3.61 L, Hgb 10.1 L, Hct 30.4 L, MCV 84.2, MCH 28.0, MCHC 33.2, RDW Std Deviation 44.3 H, RDW Coeff of Nicolle 14.4, Plt Count 263, MPV 11.4, Immature Gran % (Auto) 3.600 H, Neut % (Auto) 81.9 H, Lymph % (Auto) 4.6 L, [place] % (Auto) 8.7, Eos % (Auto) 0.7, Baso % (Auto) 0.5, Absolute Neuts (auto) 10.9 H, Absolute Lymphs (auto) 0.61 L, Nucleated RBC % 0, Atypical Lymphocytes 1+ 05/31/22 05:25: Sodium 140, Potassium 3.8, Chloride 113 H, Carbon Dioxide 17.0 L , Anion Gap 10, BUN 99 H, Creatinine 3.92 H, Estim Creat Clear Calc 15.95, Est GFR (MDRD) Af Amer 19 L, Est GFR (MDRD) Non-Af 16 L, BUN/Creatinine Ratio 25.3 H , Glucose 221 H, Calcium 7.9 L, Total Bilirubin 0.80, Direct Bilirubin 0.50 H, AST 150 H, ALT 169 H, Alkaline Phosphatase 143 H, Total Protein 4.7 L, Albumin 1.6 L, Globulin 3.1 11/16/21 05:25: Total Creatine Kinase 24 L 11/16/21 06:33: POC Glucose 216 H Rhythm Strip Rhythm Strip: A-fib Rate: 98 Ectopy: PVC(s) Physical Exam Narrative Const alert, oriented x3, no apparent distress, average body habitus and healthy appearing General Appearance: cooperative, well kempt and well developed Orientation / Consciousness: awake, oriented to person, oriented to place and oriented to time HEENT normocephalic, head/scalp atraumatic and moist oral mucous membranes Head and Scalp: normocephalic Eyes PERRL, EOMs intact bilaterally and conjunctivae normal Neck nuchal rigidity, supple, no JVD, thyroid normal and no carotid bruits General: trachea midline Resp normal respiratory effort, no retractions, no use of accessory muscles and clear to auscultation bilaterally Auscultation: Negative for rales, rhonchi or wheezes Cardio regular rate, regular rhythm, S1 normal heart sound, S2 normal heart sound, no murmurs, no rub and no gallops GI normal to inspection, nondistended, normoactive bowel sounds, soft to palpation, non-tender and non-distended Extremity no clubbing, cyanosis or edema Skin no rashes or lesions noted General Skin Exam: no breakdown Neuro oriented x3, CN's II-XII intact bilaterally, no focal motor deficits and no sensory deficits noted Sensorium / Orientation: awake and alert Speech: speech normal Psych affect normal Assessment & Plan Assessment/Plan (1) Acute UTI: PLAN: 1. Acute kidney injury-probably secondary to acute bladder outlet obstruction, continue to give IV fluids and monitor creatinine, nephrology seeing the patient. I talked briefly with nephrology today about his care, we will increase patient's IV fluid rate and recheck labs tomorrow, CPK was also ordered. #2 acute cystitis secondary to Klebsiella pneumoniae-patient will be changed to oral antibiotics starting tomorrow #3 supratherapeutic INR-etiology unclear, INR will be rechecked tomorrow #4 Elevated liver enzymes-etiology unclear, patient will undergo an ultrasound of the liver and gallbladder today. Liver enzymes will be rechecked tomorrow Charges/Coding Visit Charges Inpatient E&M: 75092 [facility] L2
[2021-11-16 12:35] LABS: Bedside Glucose 230 mg/dL (74-106)
--- NOTE | 2021-11-16 12:53 | CASEMGMT ---
Social Work SW received referral that pt is requesting SNF placement for pt. SW placed call to pt Shonda who states that pt was doing well at home up until a week ago and then became much weaker. Pt was ambulating independently and does not have an assistive device. Pt has not been eating over the last week and was having more difficulty ambulating and caring for himself. SW read to pt with list of SNF providers. SW also inquired if pt has agreed to SNF placement and states she has not talked to him about this. SW entered pt room and introduced self and role of SW. SW spoke with pt regarding 's concerns. Pt does not feel he needs SNF placement, but thinks he can return home independently. SW did explain SNF placement and provided pt with list of SNF providers including quality and resource use data and consistent with the patient's preferred geographic region, medical needs and insurance network. SW informed pt that if he changes mind, he can let SW know and referral will be made. SW did call pt back and informed her that pt is not agreeable to SNF placement at this time. Graciela CAPONE updated on above. CASSIE Guevara
[2021-11-16 13:22] LABS: International Normalized Ratio 3.8; Prothrombin Time (Protime)PT. 37.3 SECONDS (11.7-14.9)
[2021-11-16 15:31] VITALS: BP 126/61; PULSE 73; RESP 18; TEMP 36.3
[2021-11-16 16:46] LABS: Bedside Glucose 192 mg/dL (74-106)
--- NOTE | 2021-11-16 17:15 | PN.RENAL_ITS ---
Subjective Subjective Following for JACKI on CKD. The patient denies chest pain, shortness of breath at rest, or nausea. Objective Data Objective Data Vital Signs: Vital Signs Temp Pulse Resp BP Pulse Ox 97.4 F L 73 18 126/61 H 96 11/16/21 15:11/16/21 15:11/16/21 15:11/16/21 15:11/16/21 08:47 Oxygen Delivery Method Room Air Weight: 95.7 kg Body Mass Index (BMI) 28.5 Intake & Output: Intake and Output for Last 24 Hours 11/14/21 11/15/21 11/16/21 23:59 23:59 23:59 Intake Total 4998.34 / 4998.34 2695 / 2695 2716.67 / 2716.67 Output Total 2525 / 2525 2035 / 2035 2200 / 2200 Balance 2473.34 / 2473.34 660 / 660 516.67 / 516.67 Lab / Micro Data Result Diagrams: 11/16/21 05:25 11/16/21 05:25 Labs: Laboratory Results - last 24 hr 11/15/21 22:29: POC Glucose 274 H 11/16/21 05:25: WBC 13.3 H, RBC 3.61 L, Hgb 10.1 L, Hct 30.4 L, MCV 84.2, MCH 28.0, MCHC 33.2, RDW Std Deviation 44.3 H, RDW Coeff of Nicolle 14.4, Plt Count 263, MPV 11.4, Immature Gran % (Auto) 3.600 H, Neut % (Auto) 81.9 H, Lymph % (Auto) 4.6 L, [place] % (Auto) 8.7, Eos % (Auto) 0.7, Baso % (Auto) 0.5, Absolute Neuts (auto) 10.9 H, Absolute Lymphs (auto) 0.61 L, Nucleated RBC % 0, Atypical Lymphocytes 1+ 11/16/21 05:25: Sodium 140, Potassium 3.8, Chloride 113 H, Carbon Dioxide 17.0 L , Anion Gap 10, BUN 99 H, Creatinine 3.92 H, Estim Creat Clear Calc 15.95, Est GFR (MDRD) Af Amer 19 L, Est GFR (MDRD) Non-Af 16 L, BUN/Creatinine Ratio 25.3 H , Glucose 221 H, Calcium 7.9 L, Total Bilirubin 0.80, Direct Bilirubin 0.50 H, A ST 150 H, ALT 169 H, Alkaline Phosphatase 143 H, Total Protein 4.7 L, Albumin 1.6 L, Globulin 3.1 11/16/21 05:25: Total Creatine Kinase 24 L 11/16/21 05:25: PT 37.3 H, INR 3.8 11/16/21 06:33: POC Glucose 216 H 11/16/21 12:21: POC Glucose 230 H 11/16/21 16:34: POC Glucose 192 H Rhythm Strip Rhythm Strip: A-fib Rate: 98 Ectopy: PVC(s) Physical Exam Narrative General: Alert and oriented x3, NAD. HEENT: Normocephalic, atraumatic. Mucous membrane dry. Neck: Supple. Heart: Normal S1, S2. No rubs or murmurs. Lungs: Clear to auscultation bilaterally. Abdomen: Normal bowel sound, soft, nontender, no guarding or rebound. Extremity: No clubbing, cyanosis, or edema. Assessment & Plan Assessment/Plan (1) JACKI (acute kidney injury): PLAN: - Unknown baseline renal function. The last available serum cr eatinine from April 2020 was 1.3 mg/dL, so milligrams per deciliter, so the patient likely has some underlying CKD. -JACKI is likely due to prerenal azotemia in the setting of concurrent use of SINA inhibitor (patient was on lisinopril at home). -Continue IV fluid since renal function is improving. There is no evidence of volume overload. -Recheck renal function, volume status, electrolytes, and acid-base status tomorrow. (2) Acute urinary retention: PLAN: - Abdalla catheter placed. -Doubt urinary retention is the primary cause of JACKI. -Ensure regular bowel movement. Could do voiding trial prior to discharge. (3) Acute UTI: PLAN: - Antibiotic treatment as per hospital medicine service.
[2021-11-16 20:38] VITALS: BP 153/64; PULSE 70; RESP 18; TEMP 36.6; O2SAT 99
[2021-11-16] MEDS: Tamsulosin HCl 0.4 MG Capsule PO (20:47)
[2021-11-16] MEDS: Atorvastatin Calcium 10 MG Tablet PO (20:47)
[2021-11-16] MEDS: Insulin Glargine-YFGN 100 UNIT/ML Pen 10 UNIT SC (22:28)
[2021-11-16 22:35] LABS: Bedside Glucose 203 mg/dL (74-106)
[2021-11-17 02:21] VITALS: BP 144/63; PULSE 75; RESP 18; TEMP 36.3; O2SAT 98
[2021-11-17] MEDS: 0.9% Normal Saline 1,000 ML 125 ML IV ×3 (03:49→20:54)
[2021-11-17 06:03] LABS: Absolute Lymphocyte Count 0.78 X10^3/uL (0.83-4.51); Absolute Neutrophil Count 10.5 X10^3/uL (2.0-7.7); Basophil# 0.07 X10^3/uL; Basophil% 0.5 % (0-1); Eosinophil# 0.14 X10^3/uL; Eosinophils% 1.1 % (0-5); Hematocrit 31.2 % (40-54); Hemoglobin 10.4 g/dL (13.0-16.5); Lymphocyte # 0.78 X10^3/ul (0.83-4.51); Mean Corp Hgb Conc 33.3 g/dL (32-36); Mean Corpuscular Hgb 28.9 pg (27.0-32.0); Mean Corpuscular Volume 86.7 fL (80-94); Mean Platelet Vol. 10.9 fl (6.2-12.0); Monocyte# 0.91 X10^3/uL; NRBC Flagged by Analyzer 0 % (0-5); Neutrophil # 10.47 X10^3/uL (2.7-7.7); Neutrophil % 80.7 % (47-70); POSITIVE MORPHOLOGY YES; Platelet Count 291 K/mm3 (150-450); RBC Distribution Width CV 14.6 % (11.6-14.6); RBC Distribution Width SD 46.5 fl (35.1-43.9)
[2021-11-17 06:05] LABS: Differential Indicated SCAN CRITERIA MET
[2021-11-17 06:06] LABS: International Normalized Ratio 3.8; Prothrombin Time (Protime)PT. 37.2 SECONDS (11.7-14.9)
[2021-11-17 06:23] LABS: Atypical Lymphocyte 1+ %
[2021-11-17 06:34] LABS: ALB/GLOB Ratio 0.5 RATIO (0.9-2.4); AST(SGOT) 94 U/L (15-37); Alanine Aminotransfer ALT/SGPT 142 U/L (16-61); Albumin, Serum 1.6 g/dL (3.2-5.0); Alkaline Phosphatase 133 U/L (45-117); Anion Gap 8 (5-15); BUN 89 mg/dL (7-18); BUN/Creat Ratio 24.4 RATIO (10-20); Calcium,Total 7.8 mg/dL (8.5-10.1); Chloride 117 mmol/L (98-107); Creatinine, Serum 3.65 mg/dL (0.70-1.30); EST Glomerular Filtration Rate 17 mL/min (>60); Est Glom Filt Rate - Afr Amer 21 mL/min (>60); Estimated Creatinine Clearance 17.13 ml/min; Globulin 3.2 g/dL (2.2-4.2); Glucose 189 mg/dL (74-106); Potassium 3.8 mmol/L (3.5-5.1); Protein, Total 4.8 g/dL (6.4-8.2); Sodium Level 144 mmol/L (136-145)
[2021-11-17] MEDS: Insulin Lispro 100 UNIT/ML INSULN.PEN SC ×3 (06:44→17:52)
[2021-11-17 06:51] LABS: Bedside Glucose 172 mg/dL (74-106)
[2021-11-17 08:15] VITALS: BP 146/55; PULSE 77; RESP 20; TEMP 36.6; O2SAT 100
[2021-11-17] MEDS: Multivitamins,Therapeutic Tablet 1 TABLET PO (09:24)
[2021-11-17 11:56] LABS: Bedside Glucose 220 mg/dL (74-106)
--- NOTE | 2021-11-17 12:25 | CASEMGMT ---
Addendum entered by Graciela Bernstein 11/17/21 14:31: MEGHAN JEROME back into pt room, pt just finished with therapy. He states he does not want HHC or any other therapy set up for him at this time. He states it is not necessary. He will notify MEGHAN JEROME should he change his mind. Original Note: MEGHAN JEROME in to pt room, pt at bedside, discussed dc planning. Pt does not feel he needs home therapy, he would like to go to [facility]. He has a membership at [facility]. Pt states she doesn't feel that pt can drive at this time. Pt and to discuss having HHC vs ability to go outpt and MEGHAN JEROME will check back.
[2021-11-17] MEDS: Cephalexin 250 MG Capsule PO ×2 (15:17→21:01)
[2021-11-17 15:25] VITALS: BP 146/62; PULSE 72; RESP 18; TEMP 36.6; O2SAT 99
--- NOTE | 2021-11-17 15:26 | PCM.PN.REN ---
Subjective Subjective Following for JACKI on CKD. The patient still has marginal oral intake. He complains of constipation. However, there is no chest pain or shortness of breath at rest. He denies nausea or vomiting. Objective Data Objective Data Vital Signs: Vital Signs Temp Pulse Resp BP Pulse Ox 97.8 F 72 18 146/62 H 99 11/17/21 15:25 11/17/21 15:25 11/17/21 15:25 11/17/21 15:25 11/17/21 15:25 Oxygen Delivery Method Room Air Weight: 95.7 kg Body Mass Index (BMI) 28.5 Intake & Output: Intake and Output for Last 24 Hours 11/15/21 11/16/21 11/17/21 23:59 23:59 23:59 Intake Total 2695 / 2695 2916.67 / 2916.67 2300 / 2300 Output Total 2035 / 2035 2950 / 2950 1875 / 1875 Balance 660 / 660 -33.33 / -33.33 425 / 425 Lab / Micro Data Result Diagrams: 11/17/21 04:38 11/17/21 04:38 Labs: Laboratory Results - last 24 hr 11/16/21 16:34: POC Glucose 192 H 11/16/21 22:27: POC Glucose 203 H 11/17/21 04:38: WBC 13.0 H, RBC 3.60 L, Hgb 10.4 L, Hct 31.2 L, MCV 86.7, MCH 28.9, MCHC 33.3, RDW Std Deviation 46.5 H, RDW Coeff of Nicolle 14.6, Plt Count 291, MPV 10.9, Immature Gran % (Auto) 4.700 H, Neut % (Auto) 80.7 H, Lymph % (Auto) 6.0 L, [place] % (Auto) 7.0, Eos % (Auto) 1.1, Baso % (Auto) 0.5, Absolute Neuts (auto) 10.5 H, Absolute Lymphs (auto) 0.78 L, Nucleated RBC % 0, Atypical Lymphocytes 1+ 11/17/21 04:38: PT 37.2 H, INR 3.8 11/17/21 04:38: Sodium 144, Potassium 3.8, Chloride 117 H, Carbon Dioxide 19.0 L, Anion Gap 8, BUN 89 H, Creatinine 3.65 H, Estim Creat Clear Calc 17.13, Est GFR (MDRD) Af Amer 21 L, Est GFR (MDRD) Non-Af 17 L, BUN/Creatinine Ratio 24.4 H, Glucose 189 H, Calcium 7.8 L, Total Bilirubin 0.70, AST 94 H, ALT 142 H, Alkaline Phosphatase 133 H, Total Protein 4.8 L, Albumin 1.6 L, Globulin 3.2, Albumin/Globulin Ratio 0.5 L 11/17/21 06:43: POC Glucose 172 H 11/17/21 11:13: POC Glucose 220 H Micro: Microbiology 11/14/21 08:03 Blood Culture (Wb) - Left Wrist Blood Culture - Preliminary No growth in 48 hours. 11/14/21 07:56 Blood Culture (Wb) - Anticubital Left Blood Culture - Preliminary No growth in 48 hours. Radiography Diagnostic Testing: Radiology Impression Abdomen Ultrasound 11/16/21 10:16 IMPRESSION: Right upper quadrant free fluid. Mild prominence of the pancreas and decreased density may be indicative of pancreatitis. Please correlate clinically with amylase and lipase levels. Normal liver, right kidney and biliary system. Electronically Signed: Chapincito Damon DO at 20:11 EDT , Rhythm Strip Rhythm Strip: A-fib Rate: 98 Ectopy: PVC(s) Physical Exam Narrative General: Alert and oriented x3, NAD. HEENT: Normocephalic, atraumatic. Mucous membrane dry. Neck: Supple. Heart: Normal S1, S2. 3/6 systolic murmur. Lungs: Clear to auscultation bilaterally. Abdomen: Normal bowel sound, soft, nontender, no guarding or rebound. Extremity: No clubbing, cyanosis, or edema. Assessment & Plan Assessment/Plan (1) JACKI (acute kidney injury): PLAN: - Unknown baseline renal function. The last available serum creatinine from April 2020 was 1.3 mg/dL, so the patient likely has some underlying CKD. -JACKI is likely due to prerenal azotemia in the setting of concurrent use of SINA inhibitor (patient was on lisinopril at home). -Continue IV fluid since renal function is improving and his oral intake is still marginal. There is no evidence of volume overload. -Recheck renal function, volume status, electrolytes, and acid-base status tomorrow. (2) Acute urinary retention: PLAN: - Abdalla catheter placed. -Doubt urinary retention is the primary cause of JACKI. -Ensure regular bowel movement. He is still constipated. I will discuss adding laxative with Dr. Chapman. -Could do voiding trial prior to discharge once he has successful bowel movements. (3) Acute UTI: PLAN: - Antibiotic treatment as per hospital medicine service.
--- NOTE | 2021-11-17 16:04 | PN.HOSP_ITS ---
Subjective Subjective Patient was seen and examined today, I talked with his who was in his room at the time of my examination today. Patient's labs were overall improved, his liver enzymes are improved, creatinine is improved, and INR today was 3.8. I talked briefly with nephrology about his care, nephrology recommended continuing his IV fluids and rechecking labs tomorrow morning. I have elected to keep him off Coumadin for now, I will repeat an INR tomorrow and if it is 3 or below he can resume his Coumadin at a lower dosage. Patient's abdominal ultrasound showed some edema of the pancreas-I am not sure what the significance of this is but patient is asymptomatic as far as abdominal pain is concerned. I recommended to the patient and his to have the ultrasound repeated as an outpatient. Objective Data Objective Data Vital Signs: Vital Signs Temp Pulse Resp BP Pulse Ox 97.8 F 72 18 146/62 H 99 11/17/21 15:25 11/17/21 15:25 11/17/21 15:25 11/17/21 15:25 11/17/21 15:25 Oxygen Delivery Method Room Air Weight: 95.7 kg Body Mass Index (BMI) 28.5 Intake & Output: Intake and Output for Last 24 Hours 11/15/21 11/16/21 11/17/21 23:59 23:59 23:59 Intake Total 2695 / 2695 2916.67 / 2916.67 2300 / 2300 Output Total 2035 / 2035 2950 / 2950 1875 / 1875 Balance 660 / 660 -33.33 / -33.33 425 / 425 Lab / Micro Data Result Diagrams: 11/17/21 04:38 11/17/21 04:38 Labs: Laboratory Results - last 24 hr 11/16/21 16:34: POC Glucose 192 H 11/16/21 22:27: POC Glucose 203 H 11/17/21 04:38: WBC 13.0 H, RBC 3.60 L, Hgb 10.4 L, Hct 31.2 L, MCV 86.7, MCH 28.9, MCHC 33.3, RDW Std Deviation 46.5 H, RDW Coeff of Nicolle 14.6, Plt Count 291, MPV 10.9, Immature Gran % (Auto) 4.700 H, Neut % (Auto) 80.7 H, Lymph % (Auto) 6.0 L, [place] % (Auto) 7.0, Eos % (Auto) 1.1, Baso % (Auto) 0.5, Absolute Neuts (auto) 10.5 H, Absolute Lymphs (auto) 0.78 L, Nucleated RBC % 0, Atypical Lymphocytes 1+ 11/17/21 04:38: PT 37.2 H, INR 3.8 11/17/21 04:38: Sodium 144, Potassium 3.8, Chloride 117 H, Carbon Dioxide 19.0 L , Anion Gap 8, BUN 89 H, Creatinine 3.65 H, Estim Creat Clear Calc 17.13, Est GFR (MDRD) Af Amer 21 L, Est GFR (MDRD) Non-Af 17 L, BUN/Creatinine Ratio 24.4 H , Glucose 189 H, Calcium 7.8 L, Total Bilirubin 0.70, AST 94 H, ALT 142 H, Alkaline Phosphatase 133 H, Total Protein 4.8 L, Albumin 1.6 L, Globulin 3.2, Albumin/Globulin Ratio 0.5 L 11/17/21 06:43: POC Glucose 172 H 11/17/21 11:13: POC Glucose 220 H Micro: Microbiology 11/14/21 08:03 Blood Culture (Wb) - Left Wrist Blood Culture - Preliminary No growth in 48 hours. 11/14/21 07:56 Blood Culture (Wb) - Anticubital Left Blood Culture - Prelim inary No growth in 48 hours. Radiography Diagnostic Testing: Radiology Impression Abdomen Ultrasound 11/16/21 10:16 IMPRESSION: Right upper quadrant free fluid. Mild prominence of the pancreas and decreased density may be indicative of pancreatitis. Please correlate clinically with amylase and lipase levels. Normal liver, right kidney and biliary system. Electronically Signed: Chapincito Damon DO at 20:11 EDT , Rhythm Strip Rhythm Strip: A-fib Rate: 98 Ectopy: PVC(s) Physical Exam Const alert, oriented x3, no apparent distress and healthy appearing General Appearance: cooperative, well kempt and well developed Orientation / Consciousness: awake, oriented to person, oriented to place and oriented to time HEENT normocephalic Mouth: dry mucous membranes Eyes PERRL, EOMs intact bilaterally and conjunctivae normal Neck nuchal rigidity, supple, no JVD, thyroid normal and no carotid bruits General: trachea midline Resp normal respiratory effort, no retractions, no use of accessory muscles and clear to auscultation bilaterally Auscultation: Negative for rales, rhonchi or wheezes Cardio regular rate, regular rhythm, S1 normal heart sound, S2 normal heart sound, no murmurs, no rub, no gallops and no clicks GI normal to inspection, nondistended, normoactive bowel sounds, soft to palpation, non-tender and non-distended Extremity no clubbing, cyanosis or edema Skin no rashes or lesions noted and no wounds General Skin Exam: no breakdown Neuro oriented x3, CN's II-XII intact bilaterally, no focal motor deficits and no sensory deficits noted Sensorium / Orientation: awake and alert Speech: speech normal Psych affect normal Assessment & Plan Assessment/Plan (1) JACKI (acute kidney injury): (2) Acute UTI: PLAN: 1. Acute kidney injury-probably secondary to acute bladder outlet obstruction, continue to give IV fluids and monitor creatinine, nephrology seeing the patient. I talked briefly with nephrology today about his care, we will continue IV fluids at this time, recheck CMP tomorrow #2 acute cystitis secondary to Klebsiella pneumoniae-I changed the patient to Keflex today, a weeks worth of treatment will be through 11/19/2021 #3 supratherapeutic INR-etiology unclear, INR will be rechecked tomorrow, anticipate that the patient's Coumadin can be restarted on 11/18/2021, the patient's dose will need to be modified #4 Elevated liver enzymes-etiology unclear, patient's liver enzymes are normalizing, I will repeat a CMP tomorrow #5 urinary retention-again patient had a Abdalla catheter placed in the emergency room just prior to his current admission, I told the that more than likely he would be sent home with a catheter and a leg bag and that she should make an appointment for the patient to see Dr. Flores next Monday or Monday. In the meantime, I will increase patient's Flomax and place him on Proscar also Charges/Coding Visit Charges Inpatient E&M: 63756 Subs Hosp L3
[2021-11-17] MEDS: Finasteride 5 MG Tablet PO (18:01)
[2021-11-17] MEDS: Tamsulosin HCl 0.4 MG Capsule 0.8 MG PO (18:31)
[2021-11-17 18:46] LABS: Bedside Glucose 247 mg/dL (74-106)
[2021-11-17 20:46] VITALS: BP 141/53; PULSE 71; RESP 18; TEMP 36.1; O2SAT 100
[2021-11-17] MEDS: Insulin Glargine-YFGN 100 UNIT/ML Pen 10 UNIT SC (20:54)
[2021-11-17] MEDS: Atorvastatin Calcium 10 MG Tablet PO (20:54)
[2021-11-17] MEDS: Lactulose 20 GM/30 ML UDC PO (20:55)
[2021-11-17 21:50] LABS: Bedside Glucose 217 mg/dL (74-106)
[2021-11-18 02:57] VITALS: BP 143/67; PULSE 73; RESP 18; TEMP 36.4; O2SAT 97
[2021-11-18 05:34] LABS: International Normalized Ratio 3.5; Prothrombin Time (Protime)PT. 34.8 SECONDS (11.7-14.9)
[2021-11-18 05:47] LABS: ALB/GLOB Ratio 0.5 RATIO (0.9-2.4); AST(SGOT) 69 U/L (15-37); Alanine Aminotransfer ALT/SGPT 124 U/L (16-61); Albumin, Serum 1.7 g/dL (3.2-5.0); Alkaline Phosphatase 145 U/L (45-117); Anion Gap 8 (5-15); BUN 71 mg/dL (7-18); BUN/Creat Ratio 22.5 RATIO (10-20); Chloride 120 mmol/L (98-107); Creatinine, Serum 3.15 mg/dL (0.70-1.30); EST Glomerular Filtration Rate 20 mL/min (>60); Est Glom Filt Rate - Afr Amer 24 mL/min (>60); Estimated Creatinine Clearance 19.84 ml/min; Globulin 3.4 g/dL (2.2-4.2); Glucose 194 mg/dL (74-106); Potassium 3.8 mmol/L (3.5-5.1); Protein, Total 5.1 g/dL (6.4-8.2); Sodium Level 147 mmol/L (136-145)
[2021-11-18] MEDS: 0.9% Normal Saline 1,000 ML 125 ML IV (06:28)
[2021-11-18] MEDS: Cephalexin 250 MG Capsule PO ×3 (06:28→21:54)
[2021-11-18] MEDS: Insulin Lispro 100 UNIT/ML INSULN.PEN SC ×3 (06:28→16:56)
[2021-11-18 06:46] LABS: Bedside Glucose 174 mg/dL (74-106)
--- NOTE | 2021-11-18 07:42 | PN.HOSP_ITS ---
Subjective Subjective Patient is an 81-year-old gentleman admitted with increasing lethargy. Found to have acute kidney injury Objective Data Objective Data Vital Signs: Vital Signs Temp Pulse Resp BP Pulse Ox 97.6 F L 73 18 143/67 H 97 11/18/21 02:57 11/18/21 02:57 11/18/21 02:57 11/18/21 02:57 11/18/21 02:57 Oxygen Delivery Method Room Air Weight: 95.7 kg Body Mass Index (BMI) 28.5 Intake & Output: Intake and Output for Last 24 Hours 11/16/21 11/17/21 11/18/21 23:59 23:59 23:59 Intake Total 2916.67 / 2916.67 3300 / 3300 1350 / 1350 Output Total 2950 / 2950 2675 / 2675 2200 / 2200 Balance -33.33 / -33.33 625 / 625 -850 / -850 Lab / Micro Data Result Diagrams: 11/17/21 04:38 11/18/21 04:06 Labs: Laboratory Results - last 24 hr 11/17/21 11:13: POC Glucose 220 H 11/17/21 17:51: POC Glucose 247 H 11/17/21 20:53: POC Glucose 217 H 11/18/21 04:06: PT 34.8 H, INR 3.5 11/18/21 04:06: Sodium 147 H, Potassium 3.8, Chloride 120 H, Carbon Dioxide 19.0 L, Anion Gap 8, BUN 71 H, Creatinine 3.15 H, Estim Creat Clear Calc 19.84, Est GFR (MDRD) Af Amer 24 L, Est GFR (MDRD) Non-Af 20 L, BUN/Creatinine Ratio 22.5 H , Glucose 194 H, Calcium 8.0 L, Total Bilirubin 0.80, AST 69 H, ALT 124 H, Alkaline Phosphatase 145 H, Total Protein 5.1 L, Albumin 1.7 L, Globulin 3.4, Albumin/Globulin Ratio 0.5 L 11/18/21 06:26: POC Glucose 174 H Micro: Microbiology 11/14/21 08:03 Blood Culture (Wb) - Left Wrist Blood Culture - Preliminary No growth in 48 hours. 11/14/21 07:56 Blood Culture (Wb) - Anticubital Left Blood Culture - Preliminary No growth in 48 hours. Rhythm Strip Rhythm Strip: A-fib Rate: 98 Ectopy: PVC(s) Physical Exam Narrative GENERAL: cooperative HEENT: Atraumatic; EYES; Anicteric, Normal Conjunctiva NECK; supple, normal thyroid, RESPIRATORY: Diminished to auscultation CARDIOVASCULAR: Regular S1 S2, GI: soft, normoactive bowel sounds, : No Renal angle tenderness; EXTREMITIES: No edema, no clubbing, MUSCULOSKELETAL: no muscle wasting NEURO: Awake; no lateralizing signs. SKIN: No Rash PSYCH; Flat affect Assessment & Plan Assessment/Plan (1) JACKI (acute kidney injury): (2) Acute UTI: PLAN: Patient is an 81-year-old gentleman admitted with increasing lethargy. Found to have acute kidney injury 1. Acute kidney injury ? Multifactorial including 0bstructive uropathy secondary to bladder outlet obstruction, use of potential nephrotoxic medications including metformin as well as lisinopril. Managed with IV fluids Abdalla catheter and consultation placed to nephrology 2. Acute cystitis with Klebsiella ? Managed with Keflex 3. Metabolic acidosis ? Secondary to impaired kidney function do expect improvement once patient kidney function comes 4. Dyslipidemia -Patient is on statin therapy, continued at home dose 5. Essential hypertension nephrotoxic medications held, monitoring blood pressure 6. BPH with bladder outlet obstruction ? Abdalla catheter was placed patient is on Flomax dose was increased was also placed on Proscar and consultation placed to urology 7. Hyperchloremic hypernatremia ? Patient is on normal saline discontinued started on 0.45 saline with subsequent monitoring of electrolytes ordered 8. Paroxysmal A. fib ? Rate controlled on systemic anticoagulation with Coumadin. INR was elevated on admission. Coumadin held, monitoring with daily INR ordered 9. DVT prophylaxis ? Patient is on Coumadin no additional orders needed Advance planning; did discuss with the patient regarding advanced directives as well as CODE STATUS. Did explain the various scenarios involved ( FULL CODE, DNR CCA, DNR CCA with no intubation, and DNR CC and what each meant) patient elected to full code with CPR and intubation if needed. Order was placed. Time spent on discussion 18 minutes. Charges/Coding Visit Charges Inpatient E&M: 67121 Subs Hosp L3 Procedures Hospitalists Procedures: 92539 Advncd Care Plan 30 Min
[2021-11-18 09:00] VITALS: BP 134/49; PULSE 55; RESP 20; TEMP 36.6; O2SAT 96
[2021-11-18] MEDS: 0.45% Normal Saline 1,000 ML 100 ML IV ×2 (09:09→19:46)
[2021-11-18] MEDS: Multivitamins,Therapeutic Tablet 1 TABLET PO (09:29)
[2021-11-18] MEDS: Finasteride 5 MG Tablet PO (09:29)
--- NOTE | 2021-11-18 10:13 | NURSING ---
This nurse is aware of charting by Katheryn CHRISTIANSON.
[2021-11-18 11:35] LABS: Bedside Glucose 261 mg/dL (74-106)
--- NOTE | 2021-11-18 14:25 | PCM.PN.REN ---
Subjective Subjective Sitting in chair. Patient is [place]ILL [place]. Denies any complaints. States appetite is still poor; states had loose bowel movement last night. Objective Data Objective Data Vital Signs: Vital Signs Temp Pulse Resp BP Pulse Ox 98 F 55 L 20 H 134/49 H 96 11/18/21 09:00 11/18/21 09:00 11/18/21 09:00 11/18/21 09:00 11/18/21 09:00 Oxygen Delivery Method Room Air Weight: 95.7 kg Body Mass Index (BMI) 28.5 Intake & Output: Intake and Output for Last 24 Hours 11/16/21 11/17/21 11/18/21 23:59 23:59 23:59 Intake Total 2916.67 / 2916.67 3300 / 3300 1685.42 / 1685.42 Output Total 2950 / 2950 2675 / 2675 2200 / 2200 Balance -33.33 / -33.33 625 / 625 -514.58 / -514.58 Lab / Micro Data Result Diagrams: 11/17/21 04:38 11/18/21 04:06 Labs: Laboratory Results - last 24 hr 11/17/21 17:51: POC Glucose 247 H 11/17/21 20:53: POC Glucose 217 H 11/18/21 04:06: PT 34.8 H, INR 3.5 11/18/21 04:06: Sodium 147 H, Potassium 3.8, Chloride 120 H, Carbon Dioxide 19.0 L, Anion Gap 8, BUN 71 H, Creatinine 3.15 H, Estim Creat Clear Calc 19.84, Est GFR (MDRD) Af Amer 24 L, Est GFR (MDRD) Non-Af 20 L, BUN/Creatinine Ratio 22.5 H, Glucose 194 H, Calcium 8.0 L, Total Bilirubin 0.80, AST 69 H, ALT 124 H, Alkaline Phosphatase 145 H, Total Protein 5.1 L, Albumin 1.7 L, Globulin 3.4, Albumin/Globulin Ratio 0.5 L 11/18/21 06:26: POC Glucose 174 H 11/18/21 11:24: POC Glucose 261 H Micro: Microbiology 11/14/21 08:03 Blood Culture (Wb) - Left Wrist Blood Culture - Preliminary No growth in 48 hours. 11/14/21 07:56 Blood Culture (Wb) - Anticubital Left Blood Culture - Preliminary No growth in 48 hours. Rhythm Strip Rhythm Strip: A-fib Rate: 98 Ectopy: PVC(s) Physical Exam Narrative Const: A&Ox3, [place]OUGH HEENT: normocephalic, moist mucous membrane Respiratory: Lung sounds clear anteriorly and posteriorly, no wheezes rhonchi rales noted Cardio: S1, S2, RRR Extremities: No pitting edema : Indwelling Abdalla catheter, clear yellow urine in bag Assessment & Plan Assessment/Plan (1) JACKI (acute kidney injury): PLAN: - Unknown baseline renal function. The last available serum creatinine from April 2020 was 1.3 mg/dL, so the patient likely has some underlying CKD. -JACKI is likely due to prerenal azotemia in the setting of concurrent use of SINA inhibitor/metformin (patient was on lisinopril at home). -Continue IV fluid for another day since renal function is improving and his oral intake is still marginal. Patient had loose bowel movement last night. There is no evidence of volume overload. - BPs acceptable. Not on any antihypertensives -Recheck renal function, volume status, electrolytes, and acid-base status tomorrow. -Creatinine peaked 4.5 mg/dL on 11/13 and today 3.15 mg/dL. -Overall renal function is improving, no need for SLAG EXPANDER. - will arrange for follow-up at time of discharge (2) Acute urinary retention: PLAN: - Abdalla catheter placed. On Flomax and Proscar. -Doubt urinary retention is the primary cause of JACKI. -Ensure regular bowel movement. -Urology consulted (3) Acute UTI: PLAN: - Antibiotic treatment as per hospital medicine service. Keflex.
[2021-11-18 15:00] VITALS: BP 154/70; PULSE 65; RESP 18; TEMP 36.4; O2SAT 97
[2021-11-18] MEDS: Tamsulosin HCl 0.4 MG Capsule 0.8 MG PO (16:56)
[2021-11-18 17:06] LABS: Bedside Glucose 194 mg/dL (74-106)
--- NOTE | 2021-11-18 18:12 | CON.PCM.UR_ITS ---
HPI Consult Data Date of Consult: 11/18/21 HPI Narrative HPI Narrative: CHRISTIANO ESTRELLA, is a 81 M who presents with multiple medical problems to the hospital with a history of atrial fibrillation on Coumadin his INR right now is therapeutic. He has had a catheter in place he has been started on appropriate medications for an enlarged prostate with finasteride and Flomax I can have the nurses remove the catheter tomorrow morning for a voiding trial. If he fails to void he had to have the catheter replaced and then can follow-up with me as an outpatient for further work-up. [facility] Medical History Arthritis Atrial fibrillation Diabetes Hearing problem High blood pressure High cholesterol Prostate enlargement Skin cancer Home Medications glucosamine HCl 1,500 mg tablet 1,500 mg PO BID tab 03/15/19 [History Last Taken 11/12/21] lisinopril 10 mg tablet 10 mg PO DAILY 03/15/19 [History Last Taken 11/13/21] metformin 1,000 mg tablet 1,000 mg PO BID 03/15/19 [History Last Taken 11/13/21] multivitamin 1 tab PO DAILY 03/15/19 [History Last Taken 11/12/21] simvastatin 20 mg tablet 20 mg PO QPM 03/15/19 [History Last Taken Unknown] warfarin 6 mg PO SUMOTUWEFRSA #30 04/19/19 [Rx Last Taken 11/10/21] warfarin 9 mg PO TH #30 04/19/19 [Rx Last Taken 11/11/21] cephalexin 500 mg PO TID #21 cap 11/11/21 [Rx Last Taken 11/12/21] Allergy/AdvReac Type Severity Reaction Status Date / Time No Known Allergies Allergy Verified 11/13/21 10:50 Family History Mother Cancer Heart disease Hypertension Daughter Cancer Surgical History (Updated 11/13/21 @ 14:[address] Noelle Montilla DO) Hx of basal cell carcinoma excision Social History (Updated 11/13/21 @ 14:[address] Noelle Montilla DO) household members: spouse housing: house Smoking Status: Former smoker alcohol intake: never substance use type: does not use additional social history: DOES USE ASPIRIN DOES USE IBUPROFEN Lab / Micro Data Result Diagrams: 11/17/21 04:38 11/18/21 04:06 Labs: Laboratory Results - last 24 hr 11/17/21 17:51: POC Glucose 247 H 11/17/21 20:53: POC Glucose 217 H 11/18/21 04:06: PT 34.8 H, INR 3.5 11/18/21 04:06: Sodium 147 H, Potassium 3.8, Chloride 120 H, Carbon Dioxide 19.0 L, Anion Gap 8, BUN 71 H, Creatinine 3.15 H, Estim Creat Clear Calc 19.84, Est GFR (MDRD) Af Amer 24 L, Est GFR (MDRD) Non-Af 20 L, BUN/Creatinine Ratio 22.5 H , Glucose 194 H, Calcium 8.0 L, Total Bilirubin 0.80, AST 69 H, ALT 124 H, Alkaline Phosphatase 145 H, Total Protein 5.1 L, Albumin 1.7 L, Globulin 3.4, Albumin/Globulin Ratio 0.5 L 11/18/21 06:26: POC Glucose 174 H 11/18/21 11:24: POC Glucose 261 H 11/18/21 16:53: POC Glucose 194 H Rhythm Strip Rhythm Strip: A-fib Rate: 98 Ectopy: PVC(s)
[2021-11-18 21:00] VITALS: BP 151/67; PULSE 64; RESP 16; TEMP 36.7; O2SAT 97
[2021-11-18] MEDS: Atorvastatin Calcium 10 MG Tablet PO (21:54)
[2021-11-18] MEDS: Insulin Glargine-YFGN 100 UNIT/ML Pen 10 UNIT SC (21:55)
[2021-11-18 22:51] LABS: Bedside Glucose 272 mg/dL (74-106)
[2021-11-19] MEDS: 0.45% Normal Saline 1,000 ML 100 ML IV (05:03)
[2021-11-19] MEDS: Cephalexin 250 MG Capsule PO ×2 (05:07→14:11)
[2021-11-19 05:14] VITALS: BP 125/77; PULSE 72; RESP 16; TEMP 36.9; O2SAT 97
[2021-11-19 06:18] LABS: Hematocrit 28.3 % (40-54); Hemoglobin 9.3 g/dL (13.0-16.5); Mean Corp Hgb Conc 32.9 g/dL (32-36); Mean Corpuscular Hgb 28.5 pg (27.0-32.0); Mean Corpuscular Volume 86.8 fL (80-94); Mean Platelet Vol. 10.4 fl (6.2-12.0); POSITIVE COUNT YES; POSITIVE MORPHOLOGY YES; Platelet Count 393 K/mm3 (150-450); RBC Distribution Width CV 14.6 % (11.6-14.6); RBC Distribution Width SD 46.5 fl (35.1-43.9); Red Blood Count 3.26 M/mm3 (4.6-6.2); White Blood Count 13.8 K/mm3 (4.4-11.0)
[2021-11-19 06:30] LABS: Differential Indicated MANUAL DIFF
[2021-11-19 06:36] LABS: Bedside Glucose 178 mg/dL (74-106)
[2021-11-19] MEDS: Insulin Lispro 100 UNIT/ML INSULN.PEN SC ×2 (06:42→11:31)
[2021-11-19 06:46] LABS: Anion Gap 7 (5-15); BUN 57 mg/dL (7-18); BUN/Creat Ratio 21.8 RATIO (10-20); Calcium,Total 7.7 mg/dL (8.5-10.1); Chloride 118 mmol/L (98-107); Creatinine, Serum 2.62 mg/dL (0.70-1.30); EST Glomerular Filtration Rate 25 mL/min (>60); Est Glom Filt Rate - Afr Amer 30 mL/min (>60); Estimated Creatinine Clearance 23.86 ml/min; Glucose 199 mg/dL (74-106); Magnesium 1.8 mg/dL (1.6-2.6); Potassium 3.7 mmol/L (3.5-5.1); Sodium Level 143 mmol/L (136-145)
[2021-11-19 06:47] LABS: International Normalized Ratio 2.9; Prothrombin Time (Protime)PT. 30.3 SECONDS (11.7-14.9)
[2021-11-19 06:54] LABS: Eosinophil 1 % (0-5); Lymphocyte 14 % (19-41); Metamyelocyte 1 % (0-1); Monocyte 9 % (0-10); Neutrophil-Band 1 % (0-5); Neutrophil-Segmented 74 % (47-70); Total Cells Counted 100 (MANUAL DIFF)
[2021-11-19 06:55] LABS: Absolute Lymphocyte Count 1.93 X10^3/uL (0.83-4.51); Absolute Neutrophil Count 10.5 X10^3/uL (2.0-7.7); Lymphocyte # 1.93 X10^3/ul (0.83-4.51)
[2021-11-19 06:56] LABS: Platelet Estimate ADEQUATE (ADEQ); Red Cell Morphology NORM C+C NORMAL (NORM C&C)
--- NOTE | 2021-11-19 07:25 | PN.HOSP_ITS ---
Subjective Subjective Patient seen some improvement in kidney function. Patient was seen in consultation by Dr Flores's note and recommendations reviewed Objective Data Objective Data Vital Signs: Vital Signs Temp Pulse Resp BP Pulse Ox 98.4 F 72 16 125/77 H 97 11/19/21 05:14 11/19/21 05:14 11/19/21 05:14 11/19/21 05:14 11/19/21 05:14 Oxygen Delivery Method Room Air Weight: 95.663 kg Body Mass Index (BMI) 28.5 Intake & Output: Intake and Output for Last 24 Hours 11/17/21 11/18/21 11/19/21 23:59 23:59 23:59 Intake Total 3300 / 3300 3415.42 / 3415.42 928.33 / 928.33 Output Total 2675 / 2675 4875 / 4875 800 / 800 Balance 625 / 625 -1459.58 / -1459.58 128.33 / 128.33 Lab / Micro Data Result Diagrams: 11/19/21 05:35 11/19/21 05:35 Labs: Laboratory Results - last 24 hr 11/18/21 11:24: POC Glucose 261 H 11/18/21 16:53: POC Glucose 194 H 11/18/21 21:52: POC Glucose 272 H 11/19/21 05:35: WBC 13.8 H, RBC 3.26 L, Hgb 9.3 L, Hct 28.3 L, MCV 86.8, MCH 28.5, MCHC 32.9, RDW Std Deviation 46.5 H, RDW Coeff of Nicolle 14.6, Plt Count 393, MPV 10.4, Neut % (Auto) Not Reportable, Absolute Neuts (auto) 10.5 H, Absolute Lymphs (auto) 1.93, Total Counted 100, Neutrophils % (Manual) 74 H, Band Neutrophils % 1, Lymphocytes % (Manual) 14 L, Monocytes % (Manual) 9, Eosinophils % (Manual) 1, Metamyelocytes % 1, Diff Path Review May , Platelet Estimate ADEQUATE, RBC Morphology NORM C+C 11/19/21 05:35: PT 30.3 H, INR 2.9 11/19/21 05:35: Sodium 143, Potassium 3.7, Chloride 118 H, Carbon Dioxide 18.0 L , Anion Gap 7, BUN 57 H, Creatinine 2.62 H, Estim Creat Clear Calc 23.86, Est GFR (MDRD) Af Amer 30 L, Est GFR (MDRD) Non-Af 25 L, BUN/Creatinine Ratio 21.8 H , Glucose 199 H, Calcium 7.7 L, Magnesium 1.8 11/19/21 06:31: POC Glucose 178 H Micro: Microbiology 11/14/21 08:03 Blood Culture (Wb) - Left Wrist Blood Culture - Preliminary No growth in 48 hours. 11/14/21 07:56 Blood Culture (Wb) - Anticubital Left Blood Culture - Preliminary No growth in 48 hours. Rhythm Strip Rhythm Strip: A-fib Rate: 98 Ectopy: PVC(s) Physical Exam Narrative GENERAL: cooperative HEENT: Atraumatic; EYES; Anicteric, Normal Conjunctiva NECK; supple, normal thyroid, RESPIRATORY: Diminished to auscultation CARDIOVASCULAR: Regular S1 S2, GI: soft, normoactive bowel sounds, : No Renal angle tenderness; EXTREMITIES: No edema, no clubbing, MUSCULOSKELETAL: no muscle wasting NEURO: Awake; no lateralizing signs. SKIN: No Rash PSYCH; Flat affect Assessment & Plan Assessment/Plan (1) JACKI (acute kidney injury): (2) Acute UTI: PLAN: Patient is an 81-year-old gentleman admitted with increasing lethargy. Found to have acute kidney injury 1. Acute kidney injury ? Multifactorial including 0bstructive uropathy secondary to bladder outlet obstruction, use of potential nephrotoxic medications including metformin as well as lisinopril. Managed with IV fluids Abdalla catheter and consultation placed to nephrology -11/19/2021 patient seen some improvement in kidney function. Patient was seen in consultation by Dr Flores's note and recommendations reviewed 2. Acute cystitis with Klebsiella ? Managed with Keflex 3. Metabolic acidosis ? Secondary to impaired kidney function do expect improvement once patient kidney function comes 4. Dyslipidemia -Patient is on statin therapy, continued at home dose 5. Essential hypertension nephrotoxic medications held, monitoring blood pressure 6. BPH with bladder outlet obstruction ? Abdalla catheter was placed patient is on Flomax dose was increased was also placed on Proscar and consultation placed to urology 7. Hyperchloremic hypernatremia ? Patient is on normal saline discontinued started on 0.45 saline with subsequent monitoring of electrolytes ordered -11/19/2021; sodium level did improve with adjustment of fluids 8. Paroxysmal A. fib ? Rate controlled on systemic anticoagulation with Coumadin. INR was elevated on admission. Coumadin held, monitoring with daily INR ordered 9. DVT prophylaxis ? Patient is on Coumadin no additional orders needed 10. Anemia - Secondary to chronic disorder monitoring H&H and transfuse if patient becomes symptomatic or hemoglobin falls below 7 Charges/Coding Visit Charges Inpatient E&M: 01679 Subs Hosp L2
[2021-11-19 08:31] VITALS: BP 128/62; PULSE 93; RESP 18; TEMP 37; O2SAT 97
[2021-11-19] MEDS: Multivitamins,Therapeutic Tablet 1 TABLET PO (08:33)
[2021-11-19] MEDS: Finasteride 5 MG Tablet PO (08:33)
[2021-11-19 09:39] VITALS: O2SAT 97
--- NOTE | 2021-11-19 10:13 | DS.PCM_ITS ---
Providers Date of Admission: 11/13/21 Primary Care Physician: Dr. Lucas Steele MD Consultations 11/14/21 07:36 Consult: Nephrology Routine Consulting Provider: Nilsa Hill Reason for Consult: JACKI--> appears prerenal EMERGENT Consult: Yes Notified: Yes Date Notified: 11/14/21 Time Notified: 08:08 Method of Notification: Answering Service Method of Consult:: In-Person 11/18/21 10:12 Consult: Urology Routine Consulting Provider: Jose Flores Reason for Consult: Bladder outlet obstruction EMERGENT Consult: No Notified: Yes Date Notified: 11/18/21 Time Notified: 10:58 Method of Notification: page Reason For Visit: JACKI/SUPRATHERAPEUTIC INR Diagnosis Discharge Diagnosis (1) JACKI (acute kidney injury): Status: Acute Code(s): N17.9 - Acute kidney failure, unspecified (2) Acute UTI: Status: Acute Code(s): N39.0 - Urinary tract infection, site not specified Medications at Discharge Home Medications glucosamine HCl 1,500 mg tablet 1,500 mg PO BID tab 03/15/19 multivitamin 1 tab PO DAILY 03/15/19 simvastatin 20 mg tablet 20 mg PO QPM 03/15/19 cephalexin 250 mg PO Q8 #15 cap 11/19/21 finasteride 5 mg PO DAILY #30 tab 11/19/21 insulin glargine [Lantus Solostar U-100 Insulin] 10 unit SUBCUT QPM #15 ml 11/19/21 tamsulosin 0.8 mg PO DAILY@1730 #60 cap 11/19/21 warfarin 6 mg PO DAILY #30 tab 11/19/21 Hospital Course Summary of Care Provided Minutes Spent on Discharge: 35 Hospital Course: Patient is an 81-year-old gentleman admitted with increasing lethargy. Found to have acute kidney injury 1. Acute kidney injury ? Multifactorial including 0bstructive uropathy secondary to bladder outlet obstruction, use of potential nephrotoxic medications including metformin as well as lisinopril. Managed with IV fluids Abdalla catheter and consultation placed to nephrology -11/19/2021 patient seen some improvement in kidney function. Patient was seen in consultation by Dr Flores's note and recommendations reviewed 2. Acute cystitis with Klebsiella ? Managed with Keflex 3. Metabolic acidosis ? Secondary to impaired kidney function do expect improvement once patient kidney function comes 4. Dyslipidemia -Patient is on statin therapy, continued at home dose 5. Essential hypertension nephrotoxic medications held, monitoring blood pressure 6. BPH with bladder outlet obstruction ? Abdalla catheter was placed patient is on Flomax dose was increased was also placed on Proscar and consultation placed to urology -Patient was seen in consultation by Dr Flores with urology recommended voiding trial prior to discharge 7. Hyperchloremic hypernatremia ? Patient is on normal saline discontinued started on 0.45 saline with subsequent monitoring of electrolytes ordered -11/19/2021; sodium level did improve with adjustment of fluids 8. Paroxysmal A. fib ? Rate controlled on systemic anticoagulation with Coumadin. INR was elevated on admission. Coumadin held, monitoring with daily INR ordered 9. DVT prophylaxis ? Patient is on Coumadin no additional orders needed 10. Anemia - Secondary to chronic disorder monitoring H&H and transfuse if patient becomes symptomatic or hemoglobin falls below 7 Physical Exam Narrative GENERAL: cooperative HEENT: Atraumatic; EYES; Anicteric, Normal Conjunctiva NECK; supple, normal thyroid, RESPIRATORY: Diminished to auscultation CARDIOVASCULAR: Regular S1 S2, GI: soft, normoactive bowel sounds, : No Renal angle tenderness; EXTREMITIES: No edema, no clubbing, MUSCULOSKELETAL: no muscle wasting NEURO: Awake; no lateralizing signs. SKIN: No Rash PSYCH; Flat affect Weight / BMI Weight Weight: 95.663 kg Body Mass Index (BMI) 28.5 ABG / Lab / Microbiology Data Result Diagrams: 11/19/21 05:35 11/19/21 05:35 Laboratory: Laboratory Results - last 24 hr 11/18/21 11:24: POC Glucose 261 H 11/18/21 16:53: POC Glucose 194 H 11/18/21 21:52: POC Glucose 272 H 11/19/21 05:35: WBC 13.8 H, RBC 3.26 L, Hgb 9.3 L, Hct 28.3 L, MCV 86.8, MCH 28.5, MCHC 32.9, RDW Std Deviation 46.5 H, RDW Coeff of Nicolle 14.6, Plt Count 393, MPV 10.4, Neut % (Auto) Not Reportable, Absolute Neuts (auto) 10.5 H, Absolute Lymphs (auto) 1.93, Total Counted 100, Neutrophils % (Manual) 74 H, Band Neutrophils % 1, Lymphocytes % (Manual) 14 L, Monocytes % (Manual) 9, Eosinophils % (Manual) 1, Metamyelocytes % 1, Diff Path Review May , Platelet Estimate ADEQUATE, RBC Morphology NORM C+C 11/19/21 05:35: PT 30.3 H, INR 2.9 11/19/21 05:35: Sodium 143, Potassium 3.7, Chloride 118 H, Carbon Dioxide 18.0 L , Anion Gap 7, BUN 57 H, Creatinine 2.62 H, Estim Creat Clear Calc 23.86, Est GFR (MDRD) Af Amer 30 L, Est GFR (MDRD) Non-Af 25 L, BUN/Creatinine Ratio 21.8 H , Glucose 199 H, Calcium 7.7 L, Magnesium 1.8 11/19/21 06:31: POC Glucose 178 H Microbiology: Microbiology 11/14/21 07:56 Blood Culture (Wb) - Anticubital Left Blood Culture - Final No growth in 5 days. 11/14/21 08:03 Blood Culture (Wb) - Left Wrist Blood Culture - Final No growth in 5 days. D/C Instructions Discharge Diet: 1800 Calorie Control Diet Discharge Activity: Return to Normal Activity Call your doctor if you observe: Fever of 101 or Higher, Shortness of breath, Fainting spells and Chest pain Meaningful Use Info Meaningful Use Diagnoses (Choose all that apply): None applicable Discharge Plan Admission Admit Date/Time: 11/13/21 13:23 Attending Provider: Meir Gonsales Primary Care Provider: Lucas Steele Consulting Providers: Nilsa Hill ; Noelle Montilla ; Klaus Chapman ; Jose Flores Discharge Orders/Prescriptions Prescriptions: New cephalexin 250 mg Capsule 250 mg PO Q8 Qty: 15 RF: 0 tamsulosin 0.4 mg Capsule 0.8 mg PO DAILY@1730 Qty: 60 RF: 0 finasteride 5 mg Tablet 5 mg PO DAILY Qty: 30 RF: 0 insulin glargine [Lantus Solostar U-100 Insulin] 100 unit/mL (3 mL) insulin pen 10 unit subcut QPM Qty: 15 RF: 0 Continued glucosamine HCl 1,500 mg tablet 1,500 mg PO BID RF: 0 Changed warfarin 6 mg tablet 6 mg PO DAILY Qty: 30 RF: 0 Discontinued lisinopril 10 mg tablet 10 mg PO DAILY RF: 0 metformin 1,000 mg tablet 1,000 mg PO BID RF: 0 warfarin 6 MG tablet 9 mg PO TH Qty: 30 RF: 0 cephalexin 500 mg capsule 500 mg PO TID Qty: 21 RF: 0 No Action simvastatin 20 mg tablet 20 mg PO QPM RF: 0 multivitamin [Daily Multi-Vitamin] Tablet 1 tab PO DAILY RF: 0 Referrals / Follow Up: Lucas Steele MD [Primary Care Provider] - In 1 Week (Repeat INR check on 11/22/2021) Jose Flores MD [STAFF PHYSICIAN] - In 1 Week Nilsa Hill MD [STAFF PHYSICIAN] - In 1 Week Disposition Disposition (needs filled in before D/C Order can be placed): Home, Self Care Charges/Coding Visit Charges Inpatient E&M: 62112 Disch Hosp
--- NOTE | 2021-11-19 10:34 | PN.RENAL_ITS ---
Subjective Subjective Following for JACKI on probable CKD Resting in bed. States ate breakfast this am, no nausea. Abdalla removed this am. No overnight events. Objective Data Objective Data Vital Signs: Vital Signs Temp Pulse Resp BP Pulse Ox 98.6 F 93 18 128/62 H 97 11/19/21 08:31 11/19/21 08:31 11/19/21 08:31 11/19/21 08:31 11/19/21 09:39 Oxygen Delivery Method Room Air Weight: 95.663 kg Body Mass Index (BMI) 28.5 Intake & Output: Intake and Output for Last 24 Hours 11/17/21 11/18/21 11/19/21 23:59 23:59 23:59 Intake Total 3300 / 3300 3415.42 / 3415.42 928.33 / 928.33 Output Total 2675 / 2675 4875 / 4875 1350 / 1350 Balance 625 / 625 -1459.58 / -1459.58 -421.67 / -421.67 Lab / Micro Data Result Diagrams: 11/19/21 05:35 11/19/21 05:35 Labs: Laboratory Results - last 24 hr 11/18/21 11:24: POC Glucose 261 H 11/18/21 16:53: POC Glucose 194 H 11/18/21 21:52: POC Glucose 272 H 11/19/21 05:35: WBC 13.8 H, RBC 3.26 L, Hgb 9.3 L, Hct 28.3 L, MCV 86.8, MCH 28.5, MCHC 32.9, RDW Std Deviation 46.5 H, RDW Coeff of Nicolle 14.6, Plt Count 393, MPV 10.4, Neut % (Auto) Not Reportable, Absolute Neuts (auto) 10.5 H, Absolute Lymphs (auto) 1.93, Total Counted 100, Neutrophils % (Manual) 74 H, Band Neutrophils % 1, Lymphocytes % (Manual) 14 L, Monocytes % (Manual) 9, Eosinophils % (Manual) 1, Metamyelocytes % 1, Diff Path Review May , Platelet Estimate ADEQUATE, RBC Morphology NORM C+C 11/19/21 05:35: PT 30.3 H, INR 2.9 11/19/21 05:35: Sodium 143, Potassium 3.7, Chloride 118 H, Carbon Dioxide 18.0 L , Anion Gap 7, BUN 57 H, Creatinine 2.62 H, Estim Creat Clear Calc 23.86, Est GFR (MDRD) Af Amer 30 L, Est GFR (MDRD) Non-Af 25 L, BUN/Creatinine Ratio 21.8 H , Glucose 199 H, Calcium 7.7 L, Magnesium 1.8 11/19/21 06:31: POC Glucose 178 H Micro: Microbiology 11/14/21 07:56 Blood Culture (Wb) - Anticubital Left Blood Culture - Final No growth in 5 days. 11/14/21 08:03 Blood Culture (Wb) - Left Wrist Blood Culture - Final No growth in 5 days. Rhythm Strip Rhythm Strip: A-fib Rate: 98 Ectopy: PVC(s) Physical Exam Narrative Const: A&Ox3, SELDOVIA HEENT: normocephalic, moist mucous membrane Respiratory: Lung sounds clear anteriorly and posteriorly, no wheezes rhonchi rales noted Cardio: S1, S2, RRR Extremities: No pitting edema Assessment & Plan Assessment/Plan (1) JACKI (acute kidney injury): PLAN: - Unknown baseline renal function. The last available serum creatinine from April 2020 was 1.3 mg/dL, so the patient likely has some underlying CKD. -JACKI is likely due to prerenal azotemia in the setting of concurrent use of SINA inhibitor/metformin (patient was on lisinopril at home). - BPs acceptable. Not on any antihypertensives -Overall renal function stable and has improved with IV fluids; patient did not need MANAGER AVIATION. Can stop IV fluids. -Creatinine peaked 4.5 mg/dL on 11/13 and today 2.62 mg/dL. - ok for discharge per renal when cleared by primary team - will arrange for follow-up at time of discharge (2) Acute urinary retention: PLAN: -Abdalla catheter placed during this hospitalization. On Flomax and Proscar. -Doubt urinary retention is the primary cause of JACKI. -Urology consulted. Patient to continue on finasteride and Flomax. Abdalla removed this morning with voiding trial. If patient fails voiding trial catheter will have to be replaced before hospital discharge and to follow-up with Dr. Flores. (3) Acute UTI: PLAN: - Antibiotic treatment as per hospital medicine service. Keflex.
--- NOTE | 2021-11-19 10:46 | CASEMGMT ---
Addendum entered by Graciela Bernstein 11/19/21 14:52: [place] [facility] to [place] prior to dc. Emailed [place] at [facility] [place] make aware as well. Original Note: MEGHAN CM in to pt room, pt still states he would not like any [facility] services or any other homegoing services at this time.
[2021-11-19 12:15] LABS: Bedside Glucose 245 mg/dL (74-106)
[2021-11-19 14:30] VITALS: BP 142/53; PULSE 88; RESP 18; TEMP 36.6; O2SAT 100
[2021-11-19] MEDS: Tamsulosin HCl 0.4 MG Capsule 0.8 MG PO (16:42)
[2021-11-19 16:56] LABS: Bedside Glucose 249 mg/dL (74-106)
[2021-11-22 09:41] LABS: Pathologist Review Reviewed
== END 2021-11-19 17:56 | disposition home or self-care (01) | DRG 683 ==
LOC: ED 13:31 → MS3 13:56
PROVIDERS: Internal Medicine; Admitting Provider Internal Medicine; Emergency Provider Emergency Medicine; PCP Family Medicine; Visit Provider Internal Medicine
DX: N17.9 Acute kidney failure, unspecified (principal); N30.01 Acute cystitis with hematuria; E87.0 Hyperosmolality and hypernatremia; E87.2 Acidosis; I48.20 Chronic atrial fibrillation, unspecified; D69.6 Thrombocytopenia, unspecified; E86.0 Dehydration; E11.22 Type 2 diabetes mellitus with diabetic chronic kidney disease; E11.65 Type 2 diabetes mellitus with hyperglycemia; Z79.4 Long term (current) use of insulin; N18.31 Chronic kidney disease, stage 3a; I12.9 Hypertensive chronic kidney disease with stage 1 through stage 4 chronic kidney disease, or unspecified chronic kidney disease; B96.1 Klebsiella pneumoniae [K. pneumoniae] as the cause of diseases classified elsewhere; E78.5 Hyperlipidemia, unspecified; M19.90 Unspecified osteoarthritis, unspecified site; N40.1 Benign prostatic hyperplasia with lower urinary tract symptoms; E87.8 Other disorders of electrolyte and fluid balance, not elsewhere classified; T46.4X5A Adverse effect of angiotensin-converting-enzyme inhibitors, initial encounter; T38.3X5A Adverse effect of insulin and oral hypoglycemic [antidiabetic] drugs, initial encounter; N32.0 Bladder-neck obstruction; R33.9 Retention of urine, unspecified; R80.9 Proteinuria, unspecified; Z79.01 Long term (current) use of anticoagulants; Z79.84 Long term (current) use of oral hypoglycemic drugs; Z79.899 Other long term (current) drug therapy; Z87.891 Personal history of nicotine dependence
CPT/HCPCS: 36415; 71045; 76705; 76770; 80048; 80053; 80076; 81001; 82550; 82570; 82962; 83036; 83735; 84100; 84300; 84484; 85025; 85610; 87040; 93005; 97110; 97116; 97162; 97166; 97530; 97535; 99284; J7030; A4216

== ENCOUNTER → 2021-11-26 | Outpatient (CLI) | payer MEDICARE, SELFPAY ==
[2021-11-26 17:35] LABS: Absolute Lymphocyte Count 1.48 X10^3/uL (0.83-4.51); Absolute Neutrophil Count 10.3 X10^3/uL (2.0-7.7); Basophil% 0.8 % (0-1); Eosinophils% 0.8 % (0-5); Hematocrit 29.3 % (40-54); Hemoglobin 9.2 g/dL (13.0-16.5); Lymphocyte # 1.48 X10^3/ul (0.83-4.51); Lymphocyte % 11.5 % (19-41); Mean Corp Hgb Conc 31.4 g/dL (32-36); Mean Corpuscular Volume 89.3 fL (80-94); Mean Platelet Vol. 10.4 fl (6.2-12.0); Monocyte# 0.83 X10^3/uL; Monocyte% 6.4 % (0-10); NRBC Flagged by Analyzer 0 % (0-5); Neutrophil # 10.27 X10^3/uL (2.7-7.7); Neutrophil % 79.6 % (47-70); Platelet Count 387 K/mm3 (150-450); RBC Distribution Width CV 13.7 % (11.6-14.6); RBC Distribution Width SD 45.3 fl (35.1-43.9); Red Blood Count 3.28 M/mm3 (4.6-6.2); White Blood Count 12.9 K/mm3 (4.4-11.0)
[2021-11-26 17:50] LABS: AST(SGOT) 18 U/L (15-37); Alanine Aminotransfer ALT/SGPT 40 U/L (16-61); Albumin, Serum 2.2 g/dL (3.2-5.0); Alkaline Phosphatase 118 U/L (45-117); Anion Gap 6 (5-15); BUN 19 mg/dL (7-18); BUN/Creat Ratio 8.6 RATIO (10-20); Bilirubin, Direct 0.19 mg/dL (0.00-0.30); Calcium,Total 8.5 mg/dL (8.5-10.1); Chloride 107 mmol/L (98-107); EST Glomerular Filtration Rate 31 mL/min (>60); Est Glom Filt Rate - Afr Amer 37 mL/min (>60); Globulin 3.9 g/dL (2.2-4.2); Glucose 249 mg/dL (74-106); Protein, Total 6.1 g/dL (6.4-8.2); Sodium Level 138 mmol/L (136-145)
[2021-11-29 11:00] LABS: Ferritin 252 ng/mL (26-388); Iron 25 ug/dL (65-175); Iron Binding Capacity,Total 247 ug/dL (250-450); PERCENT IRON SATURATION 10.1 % (15.0-55.0)
[2021-11-29 13:12] LABS: Reticulocyte Count 3.16 % (0.5-1.5)
== END | disposition home or self-care (01) ==
LOC: MTLAB 14:28
PROVIDERS: PCP Family Medicine; Referring Provider Family Medicine; Visit Provider Family Medicine
DX: N17.9 Acute kidney failure, unspecified (principal); R79.89 Other specified abnormal findings of blood chemistry
CPT/HCPCS: 36415; 80048; 80076; 82728; 83540; 83550; 85025; 85045

== ENCOUNTER → 2021-12-28 | Outpatient (CLI) | payer MEDICARE, SELFPAY ==
[2021-12-28 15:16] LABS: Absolute Lymphocyte Count 1.84 X10^3/uL (0.83-4.51); Absolute Neutrophil Count 5.8 X10^3/uL (2.0-7.7); Basophil# 0.12 X10^3/uL; Basophil% 1.4 % (0-1); Eosinophil# 0.15 X10^3/uL; Eosinophils% 1.8 % (0-5); Hemoglobin 10.7 g/dL (13.0-16.5); Lymphocyte # 1.84 X10^3/ul (0.83-4.51); Lymphocyte % 21.5 % (19-41); Mean Corp Hgb Conc 32.4 g/dL (32-36); Mean Corpuscular Hgb 27.9 pg (27.0-32.0); Mean Corpuscular Volume 85.9 fL (80-94); Mean Platelet Vol. 10.3 fl (6.2-12.0); Monocyte# 0.63 X10^3/uL; Monocyte% 7.4 % (0-10); NRBC Flagged by Analyzer 0 % (0-5); Neutrophil # 5.77 X10^3/uL (2.7-7.7); Neutrophil % 67.3 % (47-70); Platelet Count 355 K/mm3 (150-450); RBC Distribution Width CV 14.5 % (11.6-14.6); RBC Distribution Width SD 45.4 fl (35.1-43.9); Red Blood Count 3.84 M/mm3 (4.6-6.2); White Blood Count 8.6 K/mm3 (4.4-11.0)
[2021-12-28 15:27] LABS: Platelet Count 358 K/mm3 (150-450); RET-HE 31.2 pg (30-35); Reticulocyte Count 2.05 % (0.5-1.5)
[2021-12-28 16:10] LABS: ALB/GLOB Ratio 0.7 RATIO (0.9-2.4); AST(SGOT) 19 U/L (15-37); Alanine Aminotransfer ALT/SGPT 24 U/L (16-61); Albumin, Serum 3.2 g/dL (3.2-5.0); Alkaline Phosphatase 86 U/L (45-117); Anion Gap 6 (5-15); BUN 23 mg/dL (7-18); BUN/Creat Ratio 9.5 RATIO (10-20); Calcium,Total 9.4 mg/dL (8.5-10.1); Chloride 106 mmol/L (98-107); Creatinine, Serum 2.42 mg/dL (0.70-1.30); EST Glomerular Filtration Rate 27 mL/min (>60); Est Glom Filt Rate - Afr Amer 33 mL/min (>60); Ferritin 106 ng/mL (26-388); Globulin 4.3 g/dL (2.2-4.2); Glucose 215 mg/dL (74-106); Iron 77 ug/dL (65-175); Potassium 4.4 mmol/L (3.5-5.1); Protein, Total 7.5 g/dL (6.4-8.2); Sodium Level 135 mmol/L (136-145)
[2021-12-28 16:35] LABS: Iron Binding Capacity,Total 354 ug/dL (250-450)
== END | disposition home or self-care (01) ==
LOC: MFPLAB 11:56
PROVIDERS: PCP Family Medicine; Referring Provider Family Medicine; Visit Provider Family Medicine
DX: Z00.00 Encounter for general adult medical examination without abnormal findings (principal); E11.9 Type 2 diabetes mellitus without complications; D64.9 Anemia, unspecified
CPT/HCPCS: 36415; 80053; 82728; 83540; 83550; 85025; 85045

== ENCOUNTER → 2021-12-29 | Outpatient (CLI) | payer MEDICARE, SELFPAY ==
--- NOTE | 2021-12-29 11:13 | STRESSREP ---
Stress Test Report Pharmacologic myocardial perfusion stress test. Preop evaluation for prostate surgery. Stress protocol: Resting EKG demonstrates atrial fibrillation with a rate of 75 bpm normal intervals are noted resting blood pressure is 128/70 mmHg. 0.4 mg of regadenoson was infused per usual protocol followed by rapid intravenous saline flush injection continuous EKG monitoring was performed. The maximum heart rate attained was 85 bpm which was 61% of max impacted heart rate the maximum workload was 1 metabolic equivalent. At rest there were no ST or T wave changes noted to suggest abnormal flow reserve and at peak infusion nonspecific ST changes were noted with did not meet the criteria for ischemia. The final blood pressure was 120/62 mmHg. Myocardial perfusion protocol. 14.3 mCi of technetium 99m sestamibi was injected at rest. 0.4 mg of regadenoson was infused per usual protocol. At peak infusion 44.5 mCi of technetium 99m sestamibi was injected stress images were obtained stress and rest images were reconstructed and compared in the short axis vertical long and horizontal long axis. Gated images were also obtained to Perfusion SPECT analysis: Review of the stress images demonstrate normal uptake of tracer noted in all areas of the myocardium. The resting images similar demonstrate normal uptake of tracer noted in all areas of the myocardium. No areas of reversibility are noted suggest ischemia and no previous infarct is noted. Gated SPECT analysis: The gated ejection fraction is noted to be 59%. Conclusion: Normal pharmacologic myocardial perfusion stress test. Preserved ejection fraction.
== END | disposition home or self-care (01) ==
PROVIDERS: PCP Family Medicine; Visit Provider Internal Medicine Cardiovascular Disease
DX: Z01.810 Encounter for preprocedural cardiovascular examination (principal); N17.9 Acute kidney failure, unspecified
CPT/HCPCS: 78452; 93017; A9500; A4216; J2785

== ENCOUNTER → 2022-01-03 | Outpatient (CLI) | payer MEDICARE, SELFPAY ==
--- NOTE | 2022-01-03 14:44 | ECHOD_ITS ---
Reason For Study: AFIB/FLUTTER Procedure This was a 2D Doppler, Color Flow transthoracic echocardiogram. The study was technically difficult. Unable to utilize Definity due to previous reaction. Exam performed in department. Left Ventricle Normal LV size. Left ventricular systolic function is normal. The estimated ejection fraction is 60 %. No regional wall motion abnormalities noted. Right Ventricle Normal RV size. Normal systolic function. Atria The left atrium is severely enlarged. The right atrium is moderately enlarged. Mitral Valve Mild focal mitral valve thickening. Mild (1+) eccentric mitral valve insufficiency. Tricuspid Valve Normal tricuspid valve. Mild (1+) tricuspid valve insufficiency. Pulmonary artery systolic pressure is 31 mmHg. Aortic Valve Trisinus/trileaflet aortic valve. Mild focal aortic valve calcification. Peak aortic valve gradient 23 mmHg. Mean aortic valve gradient 14 mmHg. Mild aortic stenosis. Pulmonic Valve Normal pulmonic valve. Great Vessels Normal aortic root. The pulmonary artery is normal size. Normal inferior vena cava. Pericardium/Pleural No pericardial effusion. MMode/2D Measurements & Calculations LVIDd: 5.5 cm IVSd: 1.0 cm Ao root diam: 3.3 cm LVIDs: 3.6 cm LVPWd: 1.2 cm RVDd: 3.7 cm FS: 34.3 % LAV(MOD-bp): 207.9 ml LA A4 area: 50.2 cm2 LA dimension(2D): 6.1 cm LAV(MOD-bp) Indexed: 96.8 ml/m2 LAV(MOD-sp2): 170.6 ml LAV(MOD-sp4): 249.0 ml RA A4 area: 28.1 cm2 Doppler Measurements & Calculations MV E max cheyanne: 88.7 cm/sec Ao V2 max: 240.9 cm/sec LV V1 max: 67.4 cm/sec Ao max P.2 mmHg LV V1 max P.8 mmHg Ao V2 mean: 177.9 cm/sec LV V1 mean P.98 mmHg Ao mean P.2 mmHg LV V1 mean: 47.4 cm/sec Ao V2 VTI: 53.3 cm LV V1 VTI: 13.2 cm PA V2 max: 127.0 cm/sec PI dec slope: 196.7 cm/sec2 TR max cheyanne: 262.3 cm/sec TR max P.5 mmHg ECHO/Echo Complete Interpretation Summary Normal LV size. Left ventricular systolic function is normal. The estimated ejection fraction is 60 %. The left atrium is severely enlarged. The right atrium is moderately enlarged. Mild (1+) tricuspid valve insufficiency. Pulmonary artery systolic pressure is 31 mmHg. Ordering Physician: Cesar Sandoval Referring Physician: Kanu Steele Performed By: Cori Shultz, FAY, RVT
== END | disposition home or self-care (01) ==
LOC: CVS 14:43
PROVIDERS: PCP Family Medicine; Referring Provider Internal Medicine Cardiovascular Disease; Visit Provider Internal Medicine Cardiovascular Disease
DX: I48.0 Paroxysmal atrial fibrillation (principal)
CPT/HCPCS: 93306

== ENCOUNTER 2022-01-05 13:22 | Observation (INO) | payer MEDICARE, SELFPAY ==
[2022-01-05] VITALS (14 sets, daily range): BP systolic 135–166; BP diastolic 61–84; PULSE 62–81; RESP 16–18; TEMP 36.5–36.9; O2SAT 96–100; BMI 27.6
[2022-01-05 09:05] LABS: Prothrombin Time Fingerstick 12.1 SEC (11.7-14.9)
[2022-01-05] MEDS: Lactated Ringers 1,000 ML 15 ML IV ×2 (09:35→15:27)
[2022-01-05 10:06] LABS: Bedside Glucose 173 mg/dL (74-106)
--- NOTE | 2022-01-05 10:55 | PROS_PTH ---
PATIENT: CHRISTIANO ESTRELLA LOC: MS3 U#:[id number] AGE/SX: 81/M [place] [facility] [place]01/05/[address]: Dr. Jose Flores MD : [id number] BED: 1 DIS: 01/06/2022 SPEC #: [id number] RECD: 01/05/22 17:33 STATUS: YANCI LARA #: [id number] ELYSE: 01/05/22 10:[address]: Jose Flores DEPT: SURGICAL PATHOLOGY RECD BY: Xiomara Armstrong ENTERED: 01/07/22 08:12 SP TYPE: TURP OTHR DR: Dr. Kanu Steele MD Tissues: Prostate, NOS Procedures: Surgery Specimen Level IV HEADER OPERATION: Cysto, transurethral resection prostate, Olymp[facility] PRE-OP DIAGNOSIS: BPH, urinary retention TISSUE SUBMITTED: Prostate tissue MICROSCOPIC DIAGNOSIS Prostate, transurethral resection: Chronic inflammation with focal non-necrotizing granulomatous inflammation. Benign nodular hyperplasia, glandular and stromal types. Urothelium with mild chronic inflammation. AM:maritza 01/07/2022 MICROSCOPIC DESCRIPTION Slides are reviewed. GROSS DESCRIPTION Received is one container labeled with the patient's name and designated prostate tissue. The specimen consists of multiple irregular fragments of pink-lenz, rubbery, soft tissue that in aggregate weigh 16.7 gm and measure in aggregate 6 x 6 x 0.8 cm. Able Seaman portions are submitted in 10 cassettes. / AM:maritza 01/06/2022 TC:3 CPT: 96154
[2022-01-05] MEDS: Cefazolin 2 GM in 0.9% Normal Saline 100 ML IV (12:04)
--- NOTE | 2022-01-05 13:24 | DCINST_ITS ---
Discharge Instructions Diet Discharge Diet: Light diet - advance as tolerated and Soft diet Activity Discharge Activity: Return to Normal Activity Follow Up Care Please Follow Up With: Jose Flores MD When: 2 weeks Test Results: Test results from this visit will be discussed in further detail at your follow- up appointment, if applicable. Discharge Plan Admission Primary Reason for Your Visit: luke Attending Provider: Jose Flores Primary Care Provider: Lucas Steele Instructions Patient Instructions: JOHN Home Recovery Discharge Orders/Prescriptions Prescriptions: New ciprofloxacin HCl [Cipro] 500 mg tablet 500 mg PO BID Qty: 10 0RF Continued simvastatin 20 mg tablet 20 mg PO QPM glucosamine HCl 1,500 mg tablet 1,500 mg PO BID insulin glargine [Lantus Solostar U-100 Insulin] 100 unit/mL (3 mL) insulin pen 10 unit subcut QPM Qty: 15 0RF Label Comments: ONLY IF BLOOD SUGAR >200 multivitamin Tablet 1 tab PO DAILY Held warfarin 6 mg tablet 5 mg PO DAILY Hold Instructions: Resume on 01/19/22. Discontinued tamsulosin 0.4 mg Capsule 0.8 mg PO DAILY@1730 Qty: 60 0RF finasteride 5 mg Tablet 5 mg PO DAILY Qty: 30 0RF Referrals / Follow Up: Lucas Steele MD [Primary Care Provider] - Jose Flores MD [STAFF PHYSICIAN] - Disposition Disposition (needs filled in before D/C Order can be placed): Home, Self Care
--- NOTE | 2022-01-05 13:24 | PCM.HP.STD ---
HPI - General HPI Narrative CHRISTIANO ESTRELLA, is a 81 M who presents for TURP for retention of urine we discussed it possible surgery may not wokr and he may need to learn self cath? PFS Medical History (Updated 12/30/21 @ 09:11 by Deanna Carbone) Anemia Arthritis Arthritis BPH (benign prostatic hyperplasia) Cancer Cardiology follow-up encounter COVID-19 (04/2021) Diabetes Essential hypertension Former smoker Hearing problem High cholesterol History of atrial fibrillation History of echocardiogram History of irregular heartbeat History of stress test Hyperlipidemia Insulin dependent diabetes mellitus Kidney stone Leg cramps Paroxysmal atrial fibrillation Prostate enlargement Restless legs Skin cancer Type 2 diabetes mellitus Wears glasses Wears hearing aid Home Medications glucosamine HCl 1,500 mg tablet 1,500 mg PO BID supplement 03/15/19 [History Last Taken 11/12/21] simvastatin 20 mg tablet 20 mg PO QPM cholesterol 03/15/19 [History Last Taken Unknown] insulin glargine 100 unit/mL (3 mL) subcutaneous pen (Lantus Solostar U-100 Insulin) 10 unit (0.1 mL) subcut QPM #15 mL 11/19/21 [Rx Last Taken Unknown] warfarin 6 mg tablet 5 mg PO DAILY afib MANAGED BY PCP 12/06/21 [History Last Taken 12/30/21] multivitamin 1 tab PO DAILY 12/30/21 [History Last Taken Unknown] ciprofloxacin HCl 500 mg tablet (Cipro) 500 mg PO BID #10 tabs 01/05/22 [Rx Last Taken Unknown] Allergy/AdvReac Type Severity Reaction Status Date / Time No Known Allergies Allergy Verified 12/30/21 08:53 Family History Mother Cancer Heart disease Hypertension Daughter Cancer Surgical History (Updated 12/30/21 @ 09:11 by Deanna Carbone) Hx of basal cell carcinoma excision Hx of tonsillectomy Hx of vasectomy Social History household members: spouse housing: house Smoking Status: Former smoker alcohol intake: never substance use type: does not use additional social history: DOES USE ASPIRIN DOES USE IBUPROFEN Vital Signs Vital Signs Vital Signs: 01/05/22 09:36 01/05/22 09:36 Temperature 98.2 F Temperature Source Temporal Pulse Rate 70 Respiratory Rate 18 Respiratory Pattern Normal Blood Pressure 136/78 H Blood Pressure Mean 97 Blood Pressure Source Monitor Blood Pressure Position Semi-Fowlers Blood Pressure Location Left Arm Pulse Ox 98 Oxygen Delivery Method Room Air Weight Weight: 92.533 kg Body Mass Index (BMI) 27.6 Results Lab / Micro Data Labs: Laboratory Results - last 24 hr 01/05/22 09:03: POC PT 12.1, INR 1.0 01/05/22 09:32: POC Glucose 173 H
--- NOTE | 2022-01-05 13:25 | PCM.OPRPT ---
Report of Operation Date of Procedure: 01/05/22 Pre-Operative Diagnosis: BPH with retention of urine Post-Operative Diagnosis: same Surgery/Procedure Performed:: TURP Description of Surgical Findings:: In the preoperative setting I discussed with the patient how the surgery would be done with expect afterwards. We discussed how a prostate resection is done and we discussed the risk of the surgery including, bleeding, infection, retrograde ejaculation, changes with ejaculation or intercourse,. We discussed the possibility that the resection of the prostate may not alleviate his urinary symptoms. We discussed the small risk of developing scar tissue along the urethral channel and strictures. We also discussed the chance of the prostate could grow back and he may need further surgery or treatment in the future for prostate problems. Patient was taken back to the operating room, timeout procedure was performed, he was identified and marked and placed on the operating room table. He underwent general anesthesia. He was placed in dorsolithotomy position. Penis and testicles were prepped and draped in usual sterile fashion. Went into the bladder using the visual obturator with a resectoscope. Once inside the bladder identified the right and left ureteral orifice. I then identified the prostate and the anatomy of the prostate. I marked out the area of the sphincter and the verumontanum was identified. I then proceeded with the prostate resection first resected the median lobe. And then resected the right lobe of the prostate. Then to resect the left lobe of the prostate. I then resected the apical tissue of the prostate. This was a complete resection of all obstructive tissue to improve voiding and relieve obstruction. I then made sure that there was no injury to the sphincter or the verumontanum was still intact. At the end of the resection all the chips were Ellik out of the bladder. I then identified the left and right ureteral orifice and these were confirmed to be in good position and effluxing and not injured. The resectoscope was removed, a 22 Hebrew catheter was placed into the bladder on continuous irrigation. And the urine was fairly light pink color and draining normally. He was taken back to the PACU in good condition. CPT 93961 Surgeon: Jose Flores Type of Anesthesia: General Drains: [address] Admit VTE Documentation VTE Present on Admission: No VTE Mechan Device Prophylaxis: SCD's VTE Pharm Prophylaxis ordered?: No
[2022-01-05 14:36] LABS: Bedside Glucose 122 mg/dL (74-106)
[2022-01-05] MEDS: Insulin Glargine-YFGN 100 UNIT/ML Pen 10 UNIT SC (22:45)
[2022-01-05] MEDS: Atorvastatin Calcium 10 MG Tablet PO (22:46)
[2022-01-05 23:10] LABS: Bedside Glucose 226 mg/dL (74-106)
[2022-01-06 05:00] VITALS: BP 137/62; PULSE 83; RESP 16; TEMP 36.8; O2SAT 96
--- NOTE | 2022-01-06 07:41 | PN.URO_ITS ---
Subjective Subjective Status post TURP yesterday for urinary retention bladder looked a little weak had a did have a large prostate a lot of obstruction this was resected open this morning the urine is fairly clear and light irrigation so we will remove the catheter for a voiding trial if he is able to urinate okay can go home today wit h a catheter, if he cannot urinate he will go home with a catheter, when he goes home I told him not to take any Coumadin. He will follow-up with me in 2 weeks. Objective Data Objective Data Vital Signs: Vital Signs Temp Pulse Resp BP Pulse Ox O2 Del Method 98.2 F 83 16 137/62 H 96 Room Air 01/06/22 05:00 01/06/22 05:00 01/06/22 05:00 01/06/22 05:00 01/06/22 05:00 01/06/22 05:00 Oxygen Delivery Method Room Air Weight: 92.533 kg Body Mass Index (BMI) 27.6 Intake & Output: Intake and Output for Last 24 Hours 01/04/22 01/05/22 01/06/22 23:59 23:59 23:59 Intake Total 1360 / 1360 Output Total 600 / 600 1750 / 1750 Balance 760 / 760 -1750 / -1750 Lab / Micro Data Labs: Laboratory Results - last 24 hr 01/05/22 09:03: POC PT 12.1, INR 1.0 01/05/22 09:32: POC Glucose 173 H 01/05/22 14:16: POC Glucose 122 H 01/05/22 22:42: POC Glucose 226 H
[2022-01-06 08:12] VITALS: BP 144/68; PULSE 78; RESP 18; TEMP 37.2; O2SAT 96
[2022-01-06] MEDS: Multivitamins,Therapeutic Tablet 1 TABLET PO (08:45)
[2022-01-06 12:00] VITALS: BP 143/82; PULSE 72; RESP 18; TEMP 36.8; O2SAT 98
== END 2022-01-06 12:50 | disposition home or self-care (01) ==
LOC: SDC 15:33 → MS3 15:33
PROVIDERS: Admitting Provider Urology; PCP Family Medicine; Referring Provider Urology; Visit Provider Urology
PROC: (CPT 52601; principal; 2022-01-05 10:45)
DX: N40.1 Benign prostatic hyperplasia with lower urinary tract symptoms (principal); I48.0 Paroxysmal atrial fibrillation; E10.9 Type 1 diabetes mellitus without complications; R33.8 Other retention of urine; Z87.891 Personal history of nicotine dependence; I10 Essential (primary) hypertension; E78.5 Hyperlipidemia, unspecified; R01.1 Cardiac murmur, unspecified; R31.9 Hematuria, unspecified; M19.90 Unspecified osteoarthritis, unspecified site; Z79.899 Other long term (current) drug therapy; Z79.01 Long term (current) use of anticoagulants; H91.90 Unspecified hearing loss, unspecified ear; G25.81 Restless legs syndrome
CPT/HCPCS: 52601; 00914; 36416; 82962; 85610; 88305; 99218; J7120; G0378

== ENCOUNTER → 2022-01-21 | Outpatient (CLI) | payer MEDICARE, SELFPAY ==
[2022-01-21 14:57] LABS: Hematocrit 34.4 % (40-54); Hemoglobin 10.9 g/dL (13.0-16.5); Mean Corp Hgb Conc 31.7 g/dL (32-36); Mean Corpuscular Hgb 27.6 pg (27.0-32.0); Mean Corpuscular Volume 87.1 fL (80-94); Mean Platelet Vol. 10.6 fl (6.2-12.0); Platelet Count 372 K/mm3 (150-450); RBC Distribution Width CV 14.3 % (11.6-14.6); RBC Distribution Width SD 46.1 fl (35.1-43.9); Red Blood Count 3.95 M/mm3 (4.6-6.2); White Blood Count 8.9 K/mm3 (4.4-11.0)
[2022-01-21 15:28] LABS: ALB/GLOB Ratio 0.8 RATIO (0.9-2.4); AST(SGOT) 13 U/L (15-37); Alanine Aminotransfer ALT/SGPT 23 U/L (16-61); Albumin, Serum 3.2 g/dL (3.2-5.0); Alkaline Phosphatase 80 U/L (45-117); Anion Gap 7 (5-15); BUN 29 mg/dL (7-18); BUN/Creat Ratio 11.8 RATIO (10-20); Calcium,Total 9.1 mg/dL (8.5-10.1); Chloride 106 mmol/L (98-107); Cholesterol 151 mg/dL (200); Creatinine, Serum 2.46 mg/dL (0.70-1.30); EST Glomerular Filtration Rate 27 mL/min (>60); Est Glom Filt Rate - Afr Amer 33 mL/min (>60); Ferritin 80 ng/mL (26-388); Globulin 4.2 g/dL (2.2-4.2); Glucose 150 mg/dL (74-106); High Density Lipoprotein 40 mg/dL; Iron 61 ug/dL (65-175); Potassium 4.4 mmol/L (3.5-5.1); Protein, Total 7.4 g/dL (6.4-8.2); Sodium Level 138 mmol/L (136-145); Thyroid Stim Hormone (TSH) 3.64 uIU/mL (0.358-3.74); Triglycerides 159 mg/dL; Very Low Density Lipoprotein 32 mg/dL (5-40)
== END | disposition home or self-care (01) ==
LOC: MTLAB 11:19
PROVIDERS: PCP Family Medicine; Referring Provider Family Medicine; Visit Provider Family Medicine
DX: I48.91 Unspecified atrial fibrillation (principal); E11.8 Type 2 diabetes mellitus with unspecified complications; D64.9 Anemia, unspecified
CPT/HCPCS: 36415; 80053; 80061; 82728; 83540; 84443; 85027

== ENCOUNTER → 2022-02-28 | Outpatient (CLI) | payer MEDICARE, SELFPAY ==
[2022-02-28 15:38] LABS: Mucous, Urine 0 SEEN /hpf (<or=2+); Red Blood Cells-Urine 0 SEEN /hpf (0-5); Squamous Epithelial Cells - UA 0 SEEN /hpf (0-5)
[2022-02-28 17:46] LABS: Mean Corp Hgb Conc 31.6 g/dL (32-36); Mean Corpuscular Hgb 26.8 pg (27.0-32.0); Mean Platelet Vol. 10.1 fl (6.2-12.0); Platelet Count 365 K/mm3 (150-450); RBC Distribution Width CV 14.7 % (11.6-14.6); Red Blood Count 4.47 M/mm3 (4.6-6.2); White Blood Count 8.1 K/mm3 (4.4-11.0)
[2022-02-28 17:57] LABS: Color, Urine Yellow (Yellow); Glucose, Dipstick Normal (Normal); Ketone-Dipstick Negative (Negative); Leukocyte Esterase-Dipstick 500 /ul (Negative); Nitrite-Dipstick Negative (Negative); Occult Blood-Urine 150 /ul (Negative); Protein-Dipstick 100 mg/dl (Negative); Specific Gravity, Urine 1.015 (1.002-1.030); Urine Bilirubin Dipstick Negative (Negative); Urine Clarity Cloudy (Clear); Urine Urobilinogen Normal (Normal)
[2022-02-28 18:10] LABS: White Blood Cells >100 SEEN /hpf (0-5)
[2022-02-28 18:10] LABS: Anion Gap 10 (5-15); BUN 29 mg/dL (7-18); BUN/Creat Ratio 11.1 RATIO (10-20); Calcium,Total 9.1 mg/dL (8.5-10.1); Chloride 106 mmol/L (98-107); Creatinine, Serum 2.61 mg/dL (0.70-1.30); EST Glomerular Filtration Rate 25 mL/min (>60); Est Glom Filt Rate - Afr Amer 30 mL/min (>60); Ferritin 79 ng/mL (26-388); Glucose 192 mg/dL (74-106); Iron 73 ug/dL (65-175); Potassium 4.3 mmol/L (3.5-5.1); Sodium Level 138 mmol/L (136-145)
[2022-02-28 18:11] LABS: Bacteria 1+ /hpf (None Seen)
== END | disposition home or self-care (01) ==
LOC: MFPLAB 14:57
PROVIDERS: PCP Family Medicine; Visit Provider Family Medicine
DX: N17.9 Acute kidney failure, unspecified (principal); N39.0 Urinary tract infection, site not specified; D64.9 Anemia, unspecified
CPT/HCPCS: 36415; 80048; 81001; 82728; 83540; 85027; 87077; 87086; 87088; 87186

== ENCOUNTER 2022-04-05 13:12 | Emergency (ER) | payer MEDICARE, SELFPAY ==
[2022-04-05] VITALS (7 sets, daily range): BP systolic 145–201; BP diastolic 63–98; PULSE 73–108; RESP 18–30; TEMP 37.6–37.7; O2SAT 91–96; BMI 28.5
--- NOTE | 2022-04-05 14:16 | RAD_ITS ---
STUDY: X-RAY CHEST REASON FOR EXAM: Male, 82 years old. Cough TECHNIQUE: PA and lateral views of the chest. COMPARISON: Comparison is made with prior study dated 11/13/2021. FINDINGS: EKG electrodes are seen. The lungs are clear and expanded. There is no demonstrated pleural abnormality. There is borderline cardiomegaly. Normal mediastinum and more. Normal visualized pulmonary arteries. There is atherosclerotic calcification of the aortic arch with tortuosity. There are diffuse degenerative changes of the visualized thoracic spine. Increased kyphosis. Normal visualized ribs, clavicles, and shoulders. There is no demonstrated abnormality of the visualized soft tissue structures of the upper abdomen. RAD/Chest PA and Lateral IMPRESSION: Borderline cardiomegaly. The lungs are clear. Electronically Signed: Francisco Sr MD at 15:19 EDT ,
--- NOTE | 2022-04-05 14:16 | EKG12_ITS ---
Test Reason : SOB Blood Pressure : / mmHG Vent. Rate : 080 BPM Atrial Rate : 000 BPM P-R Int : 000 ms QRS Dur : 098 ms QT Int : 368 ms P-R-T Axes : 000 -04 008 degrees QTc Int : 424 ms Atrial fibrillation Abnormal ECG Confirmed by ALONDRA SALAZAR, KENDALL ([id number]), food editor INGA BURTON ([id number]) on 04/07/2022 12:34:24 PM Referred By: Confirmed By:KENDALL CANTU MD
--- NOTE | 2022-04-05 14:22 | EX.ED.DYSGE1 ---
HPI History of Present Illness Chief Complaint: Cough Informant: patient Narrative Narrative: Patient presents with a cough. He states this started yesterday afternoon. He initially brought up a little clear sputum but then that went away and he is not bringing anything up. No hemoptysis. He is on warfarin for history of A. fib. He states he is not actually short of breath. He can carry on his normal activities. He is not having chest pain. He states he comes in because he is coughing hears a rattle in his chest and has had some subjective fevers. He does admit that he is a bit tired more than normal. No known exposures. He denies history of lung disease but did get exposed to asbestos when he was in college. But he has never been diagnosed with asbestosis or mesothelioma. He denies COPD asthma or use of prior inhalers. He denies history of CHF. Past medical history is primarily diabetes and A. fib along with high cholesterol. Medication list reviewed. No known drug allergies. No recent surgeries Prior asbestos but non-smoker and lives with [facility] Medical History Anemia Arthritis Arthritis BPH (benign prostatic hyperplasia) Cancer Cardiology follow-up encounter COVID-19 (04/2021) Diabetes Essential hypertension Former smoker Hearing problem High cholesterol History of atrial fibrillation History of echocardiogram History of irregular heartbeat History of stress test Hyperlipidemia Insulin dependent diabetes mellitus Kidney stone Leg cramps Paroxysmal atrial fibrillation Prostate enlargement Restless legs Skin cancer Type 2 diabetes mellitus Wears glasses Wears hearing aid Home Medications glucosamine HCl 1,500 mg tablet 1,500 mg PO BID supplement 03/15/19 [History Last Taken 11/12/21] simvastatin 20 mg tablet 20 mg PO QPM cholesterol 03/15/19 [History Last Taken Unknown] insulin glargine 100 unit/mL (3 mL) subcutaneous pen (Lantus Solostar U-100 Insulin) 10 unit (0.1 mL) subcut QPM #15 mL 11/19/21 [Rx Last Taken Unknown] warfarin 6 mg tablet 5 mg PO DAILY afib MANAGED BY PCP 12/06/21 [History Last Taken 12/30/21] multivitamin 1 tab PO DAILY 12/30/21 [History Last Taken Unknown] ciprofloxacin HCl 500 mg tablet (Cipro) 500 mg PO BID #10 tabs 01/05/22 [Rx Last Taken Unknown] levofloxacin 750 mg tablet 750 mg PO DAILY #4 tabs 04/05/22 [Rx Last Taken Unknown] Allergy/AdvReac Type Severity Reaction Status Date / Time No Known Allergies Allergy Verified 04/05/22 13:15 Family History Mother Cancer Heart disease Hypertension Daughter Cancer Surgical History Hx of basal cell carcinoma excision Hx of tonsillectomy Hx of vasectomy Social History household members: spouse housing: house Smoking Status: Former smoker alcohol intake: never substance use type: does not use additional social history: DOES USE ASPIRIN DOES USE IBUPROFEN ROS ROS ED Constitutional Constitutional ED: Reports fever(s) and subjective Eyes Eyes: Denies change in vision ENT ENT ED: Denies rhinorrhea or sore throat Cardiovascular Cardiovascular: Denies chest pain, orthopnea, palpitations, paroxysmal nocturnal dyspnea or racing heartbeat Respiratory/Chest Respiratory/Chest: Reports cough and sputum; Denies dyspnea, dyspnea on exertion, orthopnea or paroxysmal nocturnal dyspnea Gastrointestinal Gastrointestinal: Denies abdominal pain, diarrhea, nausea or vomiting Genitourinary Genitourinary ED: Denies dysuria Musculoskeletal Musculoskeletal: Denies arthralgias or myalgias Integumentary Denies rash Neurologic Neurologic: Denies headache(s) Endocrine Endocrinology: Denies polydipsia or polyuria Hematologic/Lymphatic Hematologic/Lymphatic: Reports easy bleeding and easy bruising Allergic/Immunologic Allergic/Immunologic ED: Denies urticaria EXAM Physical Exam Const Vital Signs: 04/05/22 13:12 04/05/22 13:42 04/05/22 13:56 Temperature 100 F H Temperature Source Temporal Pulse Rate 108 H 86 Respiratory Rate 30 H 21 H Respiratory Effort Labored Respiratory Pattern Tachypnea Blood Pressure 201/85 H 158/63 H Blood Pressure Mean 123 94 Pulse Ox 96 91 Oxygen Delivery Method Room Air Room Air Room Air 04/05/22 14:24 04/05/22 15:30 04/05/22 15:46 Temperature Temperature Source Pulse Rate 82 107 H 73 Respiratory Rate 18 26 H Respiratory Effort Respiratory Pattern Normal Blood Pressure 145/98 H Blood Pressure Mean 113 Pulse Ox 94 Oxygen Delivery Method Room Air 04/05/22 16:51 Temperature 99.7 F H Temperature Source Oral Pulse Rate Respiratory Rate Respiratory Effort Respiratory Pattern Blood Pressure Blood Pressure Mean Pulse Ox Oxygen Delivery Method Positive well nourished and well developed General Appearance ED: well developed and NAD; Negative for cyanotic or diaphoretic HEENT Reports moist mucous membranes Eyes General Eye ED: Negative for scleral icterus Neck no JVD Chest Wall inspection of chest normal Resp normal respiratory effort Resp Narrative: Saturations are anywhere from 92 to 94% on room air while I am in the room. He does have a few coarse breath sounds more at the bases and a little bit more on the right than the left. At first I heard a slight wheeze with expiration but it cleared after a few breaths. There is no pleuritic pain. Cardio regular rate Rate: other Other Details: Patient is have a systolic ejection murmur. Considering age and location this is likely aortic stenosis. Rhythm: abnormal rhythm GI normal to inspection, nondistended, normoactive bowel sounds and non-tender Palpation: soft Back/Spine no CVA tenderness Extremity normal to inspection General Extremety ED: Negative for edema or tenderness General Extremity: Negative for edema Neuro oriented x3 Sensorium / Orientation: Negative for lethargic or stuporous Psych mental status grossly normal Skin no rashes or lesions noted MDM MDM MDM Narrative Medical decision making narrative: X-ray shows no acute process. Blood work shows normal CBC. INR is just mildly low. Electrolytes show elevated creatinine at 2.63. This is the patient's baseline. Patient was given albuterol. This really helped him. It cleared up the lungs a fair amount but he still has some crackling more at the right base. He is not short of breath with activity nor hypoxic. His COVID/flu swab is negative. Patient does have fever, he had sputum production, he has rhonchi isolated to the right base. This is consistent with early pneumonia. He is not having diffuse myalgias. He does have a little bit of tiredness. I will treat him with antibiotics even though he does not have an infiltrate. I also write for albuterol MDI here teach him how to use it and send it home because it did help him. We discussed reasons to follow-up and expected course Lab Data Attestation: I reviewed the patient's lab results. Labs: Laboratory Results - last 24 hr 04/05/22 04/05/22 04/05/22 13:30 13:30 13:30 WBC 9.9 RBC 4.91 Hgb 13.5 Hct 41.5 MCV 84.5 MCH 27.5 MCHC 32.5 RDW Std Deviation 44.5 H RDW Coeff of Nicolle 14.6 Plt Count 252 MPV 10.9 Immature Gran % (Auto) 0.500 Neut % (Auto) 82.6 H Lymph % (Auto) 9.4 L [place] % (Auto) 6.4 Eos % (Auto) 0.2 Baso % (Auto) 0.9 Absolute Neuts (auto) 8.2 H Absolute Lymphs (auto) 0.93 Nucleated RBC % 0 PT 18.7 H INR 1.6 Sodium 137 Potassium 4.2 Chloride 104 Carbon Dioxide 24.0 Anion Gap 9 BUN 23 H Creatinine 2.63 H Estim Creat Clear Calc 23.36 Est GFR (MDRD) Af Amer 30 L Est GFR (MDRD) Non-Af 25 L BUN/Creatinine Ratio 8.7 L Glucose 195 H Calcium 8.9 Radiography Diagnostic Testing: Clinical Impression(s) from Imaging Studies Chest X-Ray 04/05/22 14:16 IMPRESSION: Borderline cardiomegaly. The lungs are clear. Electronically Signed: Francisco Sr MD at 15:19 EDT , 2 view chest x-ray looked at by me and read by radiology shows borderline cardiomegaly but no acute infiltrate. EKG Initial EKG: Comments: EKG done for history of A. fib read by me shows atrial fibrillation with controlled rate at 80. No ventricular ectopy on this EKG. QRS duration and QTc are normal. No sign of acute ST elevation depression. The EKG is overall similar to 1 from 13 Nov 2021. Discharge Plan Triage Chief Complaint: Cough ED Provider: Marco Jorgensen Dx/Rx/DC Orders Clinical Impression: Pneumonia, Acute bronchospasm Instructions: ED Pneumonia (Adult) Prescriptions: New levofloxacin 750 mg tablet 750 mg PO DAILY Qty: 4 0RF No Action simvastatin 20 mg tablet 20 mg PO QPM glucosamine HCl 1,500 mg tablet 1,500 mg PO BID warfarin 6 mg tablet 5 mg PO DAILY Hold Instructions: Resume on 01/19/22. insulin glargine [Lantus Solostar U-100 Insulin] 100 unit/mL (3 mL) insulin pen 10 unit subcut QPM Qty: 15 0RF Label Comments: ONLY IF BLOOD SUGAR >200 multivitamin Tablet 1 tab PO DAILY ciprofloxacin HCl [Cipro] 500 mg tablet 500 mg PO BID Qty: 10 0RF Primary Care Provider: Lucas Steele Referrals: Lucas Steele MD [Primary Care Provider] - 3-5 Days if not improving Disposition Disposition: Home, Self Care
[2022-04-05] MEDS: Ipratropium/Albuterol Sulfate 3 ML AMPUL.NEB INHALATION (14:24)
[2022-04-05 14:31] LABS: Absolute Lymphocyte Count 0.93 X10^3/uL (0.83-4.51); Absolute Neutrophil Count 8.2 X10^3/uL (2.0-7.7); Basophil# 0.09 X10^3/uL; Basophil% 0.9 % (0-1); Eosinophil# 0.02 X10^3/uL; Eosinophils% 0.2 % (0-5); Hematocrit 41.5 % (40-54); Hemoglobin 13.5 g/dL (13.0-16.5); Lymphocyte # 0.93 X10^3/ul (0.83-4.51); Lymphocyte % 9.4 % (19-41); Mean Corp Hgb Conc 32.5 g/dL (32-36); Mean Corpuscular Hgb 27.5 pg (27.0-32.0); Mean Corpuscular Volume 84.5 fL (80-94); Mean Platelet Vol. 10.9 fl (6.2-12.0); Monocyte# 0.63 X10^3/uL; Monocyte% 6.4 % (0-10); NRBC Flagged by Analyzer 0 % (0-5); Neutrophil # 8.16 X10^3/uL (2.7-7.7); Neutrophil % 82.6 % (47-70); Platelet Count 252 K/mm3 (150-450); RBC Distribution Width CV 14.6 % (11.6-14.6); RBC Distribution Width SD 44.5 fl (35.1-43.9); Red Blood Count 4.91 M/mm3 (4.6-6.2); White Blood Count 9.9 K/mm3 (4.4-11.0)
[2022-04-05] MEDS: Acetaminophen 325 MG Tablet 650 MG PO (14:43)
[2022-04-05 14:45] LABS: Anion Gap 9 (5-15); BUN 23 mg/dL (7-18); BUN/Creat Ratio 8.7 RATIO (10-20); Calcium,Total 8.9 mg/dL (8.5-10.1); Chloride 104 mmol/L (98-107); Creatinine, Serum 2.63 mg/dL (0.70-1.30); EST Glomerular Filtration Rate 25 mL/min (>60); Est Glom Filt Rate - Afr Amer 30 mL/min (>60); Estimated Creatinine Clearance 23.36 ml/min; Glucose 195 mg/dL (74-106); International Normalized Ratio 1.6; Potassium 4.2 mmol/L (3.5-5.1); Prothrombin Time (Protime)PT. 18.7 SECONDS (11.7-14.9); Sodium Level 137 mmol/L (136-145)
[2022-04-05] MEDS: levoFLOXacin 750 MG Tablet PO (17:06)
[2022-04-05] MEDS: Albuterol Sulfate 8 gm Inhaler (60 puffs) 2 PUFF INHALATION (17:11)
== END 2022-04-05 17:15 | disposition home or self-care (01) ==
PROVIDERS: Emergency Provider Emergency Medicine; PCP Family Medicine; Visit Provider Emergency Medicine
DX: J18.9 Pneumonia, unspecified organism (principal); I48.91 Unspecified atrial fibrillation; J98.01 Acute bronchospasm; Z87.891 Personal history of nicotine dependence; Z79.01 Long term (current) use of anticoagulants
CPT/HCPCS: 71046; 80048; 85025; 85610; 87428; 93005; 94640; 99285; A4216

== ENCOUNTER → 2022-07-19 | Outpatient (CLI) | payer MEDICARE, SELFPAY ==
[2022-07-19 13:02] LABS: Hematocrit 42.8 % (40-54); Mean Corp Hgb Conc 32.7 g/dL (32-36); Mean Corpuscular Hgb 28.3 pg (27.0-32.0); Mean Corpuscular Volume 86.6 fL (80-94); Mean Platelet Vol. 10.6 fl (6.2-12.0); Platelet Count 293 K/mm3 (150-450); RBC Distribution Width CV 14.3 % (11.6-14.6); RBC Distribution Width SD 45.2 fl (35.1-43.9); Red Blood Count 4.94 M/mm3 (4.6-6.2); White Blood Count 10.9 K/mm3 (4.4-11.0)
[2022-07-19 13:11] LABS: Protein, Urine (Random) 29.6 mg/dL (<11.9); Protein:Creat Ratio 341 mg/g CRE (0-200)
[2022-07-19 13:23] LABS: Albumin, Serum 3.6 g/dL (3.2-5.0); BUN 31 mg/dL (7-18); BUN/Creat Ratio 13.2 RATIO (10-20); Calcium,Total 8.9 mg/dL (8.5-10.1); Chloride 104 mmol/L (98-107); Creatinine, Serum 2.34 mg/dL (0.70-1.30); EST Glomerular Filtration Rate 28 mL/min (>60); Est Glom Filt Rate - Afr Amer 34 mL/min (>60); Glucose 275 mg/dL (74-106); PTHIN 194.1 pg/mL (18.4-80.1); Phosphorus 3.9 mg/dL (2.5-4.9); Potassium 4.4 mmol/L (3.5-5.1); Sodium Level 139 mmol/L (136-145)
[2022-07-19 13:26] LABS: Vitamin D,25 Hydroxy 28.6 ng/mL
== END | disposition home or self-care (01) ==
PROVIDERS: PCP Family Medicine; Referring Provider Internal Medicine Nephrology; Visit Provider Internal Medicine Nephrology
DX: R33.8 Other retention of urine (principal); N18.32 Chronic kidney disease, stage 3b
CPT/HCPCS: 36415; 80069; 82306; 82570; 83970; 84156; 85027

== ENCOUNTER → 2023-01-17 | Outpatient (CLI) | payer MEDICARE, SELFPAY ==
[2023-01-17 17:45] LABS: Absolute Lymphocyte Count 2.08 X10^3/uL (0.83-4.51); Basophil# 0.11 X10^3/uL; Basophil% 1.5 % (0-1); Eosinophil# 0.25 X10^3/uL; Eosinophils% 3.5 % (0-5); Hematocrit 42.6 % (40-54); Hemoglobin 13.8 g/dL (13.0-16.5); Lymphocyte # 2.08 X10^3/ul (0.83-4.51); Lymphocyte % 29.3 % (19-41); Mean Corp Hgb Conc 32.4 g/dL (32-36); Mean Corpuscular Volume 89.5 fL (80-94); Mean Platelet Vol. 11.1 fl (6.2-12.0); Monocyte# 0.62 X10^3/uL; Monocyte% 8.7 % (0-10); NRBC Flagged by Analyzer 0 % (0-5); Neutrophil # 4.02 X10^3/uL (2.7-7.7); Neutrophil % 56.7 % (47-70); Platelet Count 221 K/mm3 (150-450); RBC Distribution Width CV 13.5 % (11.6-14.6); RBC Distribution Width SD 44.3 fl (35.1-43.9); Red Blood Count 4.76 M/mm3 (4.6-6.2); White Blood Count 7.1 K/mm3 (4.4-11.0)
[2023-01-17 18:20] LABS: Vitamin B12 275 pg/mL (211-911); Vitamin D,25 Hydroxy 31.2 ng/mL
[2023-01-17 18:21] LABS: Protein, Urine (Random) 18.2 mg/dL (<11.9); Protein:Creat Ratio 282 mg/g CRE (0-200)
[2023-01-17 18:53] LABS: ALB/GLOB Ratio 1.1 RATIO (0.9-2.4); AST(SGOT) 18 U/L (15-37); Alanine Aminotransfer ALT/SGPT 30 U/L (16-61); Albumin, Serum 3.6 g/dL (3.2-5.0); Alkaline Phosphatase 62 U/L (45-117); Anion Gap 4 (5-15); BUN 31 mg/dL (7-18); BUN/Creat Ratio 13.5 RATIO (10-20); Calcium,Total 8.9 mg/dL (8.5-10.1); Chloride 110 mmol/L (98-107); Cholesterol 133 mg/dL (200); Creatinine, Serum 2.29 mg/dL (0.70-1.30); EST Glomerular Filtration Rate 29 mL/min (>60); Est Glom Filt Rate - Afr Amer 35 mL/min (>60); Ferritin 71 ng/mL (26-388); Globulin 3.4 g/dL (2.2-4.2); Glucose 96 mg/dL (74-106); High Density Lipoprotein 47 mg/dL; Iron 164 ug/dL (65-175); Phosphorus 3.6 mg/dL (2.5-4.9); Potassium 4.8 mmol/L (3.5-5.1); Sodium Level 139 mmol/L (136-145); Thyroid Stim Hormone (TSH) 4.13 uIU/mL (0.358-3.74); Triglycerides 119 mg/dL; Very Low Density Lipoprotein 24 mg/dL (5-40)
[2023-01-18 07:41] LABS: PTHIN 94.9 pg/mL (18.4-80.1)
[2023-01-19 19:55] LABS: T4 Free Direct 0.91 ng/dL (0.76-1.46)
== END | disposition home or self-care (01) ==
LOC: MTLAB 14:46
PROVIDERS: PCP Family Medicine; Referring Provider Family Medicine; Visit Provider Family Medicine
DX: N18.32 Chronic kidney disease, stage 3b (principal); E11.22 Type 2 diabetes mellitus with diabetic chronic kidney disease; R79.89 Other specified abnormal findings of blood chemistry
CPT/HCPCS: 36415; 80053; 80061; 82306; 82570; 82607; 82728; 83540; 83970; 84100; 84156; 84439; 84443; 85025

== ENCOUNTER 2023-06-21 16:07 | Inpatient (IN) | payer MEDICARE, SELFPAY ==
[2023-06-16 15:45] LABS: Hematocrit 44.3 % (40-54); Mean Corp Hgb Conc 31.6 g/dL (32-36); Mean Corpuscular Hgb 27.9 pg (27.0-32.0); Mean Corpuscular Volume 88.2 fL (80-94); Mean Platelet Vol. 10.9 fl (6.2-12.0); Platelet Count 305 K/mm3 (150-450); RBC Distribution Width CV 13.3 % (11.6-14.6); RBC Distribution Width SD 43.3 fl (35.1-43.9); Red Blood Count 5.02 M/mm3 (4.6-6.2); White Blood Count 9.7 K/mm3 (4.4-11.0)
[2023-06-16 16:17] LABS: Hemoglobin A1c 6.6 % (3.8-5.6)
[2023-06-16 16:55] LABS: Anion Gap 5 (5-15); BUN 29 mg/dL (7-18); BUN/Creat Ratio 12.9 RATIO (10-20); Calcium,Total 9.4 mg/dL (8.5-10.1); Chloride 106 mmol/L (98-107); Creatinine, Serum 2.25 mg/dL (0.70-1.30); EST Glomerular Filtration Rate 30 mL/min (>60); Est Glom Filt Rate - Afr Amer 36 mL/min (>60); Glucose 166 mg/dL (74-106); Potassium 4.4 mmol/L (3.5-5.1); Sodium Level 137 mmol/L (136-145)
[2023-06-21] VITALS (16 sets, daily range): BP systolic 105–177; BP diastolic 54–92; PULSE 57–96; RESP 16–18; TEMP 36.1–36.6; O2SAT 96–100; BMI 30.2
--- OUTSIDE RECORDS SUMMARY | 2023-06-21 13:16 | XMS RPT_ITS | CCD ---
Author Name Unknown Address [address] [place] [address] Organization [facility] Results Test Name Value Interpretation Reference Range Facil ity Summary Purpose Family History No Family History Records FoundNo Family History Records Found Advance Directives No Advanced Directives Records FoundNo Advanced Directives Records Found Additional Source Comments (unrecognized sect ion and content) No Status Records FoundNo Status Records Found INFORMATION SOURCE (unrecogn ized section and content) DATE CREATED AUTHOR AUTHOR'S TERRIE ATION 03/22/2019 [facility] FOR RECORDS PERTAINING TO PATIENTS WHO ARE OR HAVE BEEN ENROLLED IN A CHEMICAL DEPENDENCY/SUBSTANCEABUSE PROGRAM, SOME INFORMATION MAY BE OMITTED. This clinical summary was aggregated from multiple sources. Caution should be exercised in using it in the provision of clinical care. This summary normalizes information from multiple sources, and as a consequence, information in this document may materially change the coding, format and clinical context of patient data. In addition, data may be omitted in some cases. CLINICAL DECISIONS SHOULD BE BASED ON THE PRIMARY CLINICAL RECORDS. [facility]. provides no warranty or guarantee of the accuracy or completeness of information in this document.
[2023-06-21 13:29] LABS: INR Fingerstick 1.3; Prothrombin Time Fingerstick 14.5 SEC (11.7-14.9)
[2023-06-21] MEDS: Lactated Ringers 1,000 ML 15 ML IV (13:51)
[2023-06-21 14:19] LABS: Bedside Glucose 112 mg/dL (74-106)
--- NOTE | 2023-06-21 15:08 | PCM.HP.STD ---
HPI - General HPI Narrative CHRISTIANO ESTRELLA, is a 83 M who presents for a cystoscopy and transurethral resection of bladder neck contracture and tumor PFSH Medical History (Updated 06/14/23 @ 11:21 by Nora Mendez) Alcohol use Anemia Arthritis BPH (benign prostatic hyperplasia) Cancer Cardiology follow-up encounter COVID-19 (04/2021) Dietary restriction Essential hypertension Former smoker High cholesterol History of atrial fibrillation History of echocardiogram History of irregular heartbeat History of pain when walking History of stress test Hyperlipidemia Insulin dependent diabetes mellitus Leg cramps Paroxysmal atrial fibrillation Puncture wound of left middle finger Puncture wound of left ring finger Restless legs Shingles Shortness of breath on exertion Type 2 diabetes mellitus Wears dentures Wears glasses Wears hearing aid Home Medications glucosamine HCl 1,500 mg tablet 1,500 mg PO BID supplement 03/15/19 [History Last Taken 11/12/21] simvastatin 20 mg tablet 20 mg PO QPM cholesterol 03/15/19 [History Last Taken Unknown] warfarin 6 mg tablet 5 mg PO DAILY SUMOWETHSA 12/06/21 [History Last Taken 06/16/23] multivitamin 1 tab PO DAILY 12/30/21 [History Last Taken Unknown] cholecalciferol (vitamin D3) 50 mcg (2,000 unit) capsule (Vitamin D3) 50 mcg PO DAILY 06/14/23 [History Last Taken 06/21/23] finasteride 5 mg tablet 5 mg PO DAILY 06/14/23 [History Last Taken 06/21/23] gabapentin 600 mg tablet 600 mg PO TID 06/14/23 [History Last Taken 06/21/23] insulin glargine 100 unit/mL (3 mL) subcutaneous pen (Lantus Solostar U-100 Insulin) 15 unit subcut DAILY 06/14/23 [History Last Taken Unknown] warfarin 6 mg tablet 6 mg PO TUFR 06/14/23 [History Last Taken 06/16/23] Allergy/AdvReac Type Severity Reaction Status Date / Time No Known Allergies Allergy Verified 06/21/23 13:44 Family History Mother Cancer Heart disease Hypertension Daughter Cancer Surgical History (Updated 06/14/23 @ 11:16 by Nora Mendez) History of dental surgery Hx of basal cell carcinoma excision Hx of tonsillectomy Hx of transurethral resection of prostate Hx of vasectomy Social History household members: spouse housing: house Smoking Status: Former smoker alcohol intake: never substance use type: does not use additional social history: DOES USE ASPIRIN DOES USE IBUPROFEN Vital Signs Vital Signs Vital Signs: 06/21/23 13:45 06/21/23 13:45 Temperature 97.3 F L Temperature Source Temporal Pulse Rate 71 Respiratory Rate 16 Respiratory Pattern Normal Blood Pressure 156/78 H Blood Pressure Mean 104 Blood Pressure Source Monitor Blood Pressure Position Semi-Fowlers Blood Pressure Location Left Arm Pulse Ox 100 Oxygen Delivery Method Room Air Weight Weight: 101 kg Body Mass Index (BMI) 30.2 Results Lab / Micro Data 06/16/23 14:16 06/16/23 14:16 Labs: Laboratory Results - last 24 hr 06/21/23 13:26: POC PT 14.5, INR 1.3 06/21/23 13:55: POC Glucose 112 H
--- NOTE | 2023-06-21 15:20 | BLB_PTH ---
PATHOLOGY RESULTS PATIENT: CHRISTIANO ESTRELLA LOC: MS3 U#:[id number] AGE/SX: 83/M ROOM: [facility] [place]21/[address]: Dr. Jose Flores MD : 1940 BED: 1 DIS: 06/23/2023 SPEC #: [id number] RECD: 06/22/23 07:08 STATUS: YANCI LARA #: [id number] ELYSE: 06/21/23 15:[address]: Jose Flores DEPT: SURGICAL PATHOLOGY RECD BY: Staci Marr ENTERED: 06/22/23 07:09 SP TYPE: TURB OTHR DR: Dr. 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 Fragments of benign prostatic tissue. See cancer summary in the comment section. SJ:rg 06/23/2023 COMMENT BLADDER CANCER (TUR) SUMMARY Procedure: Transurethral resection of bladder tumor (TURBT) Tumor site: Not identified Histologic type: Papillary urothelial carcinoma, noninvasive Associated epithelial lesions: None identified Histologic grade: Low grade (1/2) Tumor configuration: Papillary Muscularis propria presence: Muscularis propria (detrusor muscle) is present and free of tumor. Lymphvascular invasion: Not identified Tumor extension: Noninvasive papillary carcinoma. Additional pathologic findings: Chronic inflammation. - Fragments of benign prostatic tissue. 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 MICROSCOPIC DESCRIPTION Slides are reviewed. GROSS DESCRIPTION Received in fixative is one container labeled with the patient's name and designated bladder tumor. The specimen consists of multiple irregular fragments of lenz-brown soft to indurated tissue that in aggregate measure 5.0 x 3.0 x 1.2 cm. The entire specimen is submitted in seven cassettes. / LUIS FERNANDO:maritza 06/22/2023 TC:0 CPT: 90211
[2023-06-21] MEDS: Cefazolin 2 GM in 0.9% Normal Saline (100mL Bag) 100 ML IV (15:22)
--- NOTE | 2023-06-21 16:05 | DCINST_ITS ---
Discharge Instructions Diet Discharge Diet: No restrictions Activity Discharge Activity: Return to Normal Activity and May Not Drive (while taking narcotic pain medications.) Dressing / Incision Call your doctor if you observe: Fever of 101 or Higher Follow Up Care Please Follow Up With: Jose Flores MD When: Call [phone] for an appointment Test Results: Test results from this visit will be discussed in further detail at your follow- up appointment, if applicable. Discharge Plan Admission Attending Provider: Jose Flores Primary Care Provider: Lucas Steele Discharge Orders/Prescriptions Prescriptions: No Action simvastatin 20 mg tablet 20 mg PO QPM glucosamine HCl 1,500 mg tablet 1,500 mg PO BID warfarin 6 mg tablet 5 mg PO DAILY Hold Instructions: Resume on 01/19/22. multivitamin Tablet 1 tab PO DAILY cholecalciferol (vitamin D3) [Vitamin D3] 50 mcg (2,000 unit) capsule 50 mcg PO DAILY gabapentin 600 mg tablet 600 mg PO TID finasteride 5 mg tablet 5 mg PO DAILY warfarin 6 mg tablet 6 mg PO TUFR insulin glargine [Lantus Solostar U-100 Insulin] 100 unit/mL (3 mL) insulin pen 15 unit SUBCUT DAILY Referrals / Follow Up: Lucas Steele MD [Primary Care Provider] - Disposition Disposition (needs filled in before D/C Order can be placed): Home, Self Care
--- NOTE | 2023-06-21 16:09 | PCM.OPRPT ---
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 The penis testicles were prepped and draped you sterile fashion the urethra was dilated I then went into the urethra with a 24 Polish noncontinuous flow Olympus bipolar resectoscope I got through the sphincter into the prostate past the verumontanum and immediately encountered a bladder neck contracture tight bladder neck was not able to get the scope through so then I used the resectoscope to use a median loop to resect the floor the right lateral wall the roof and the left lateral wall the contracture to open up nicely had a nice wide open channel then I then went inside the bladder and there was a large tumor it was up on the patient's left lateral wall it measured 4 cm x 5 cm x 3 cm after estimating the size and I proceeded with the resection the tumor was completely resected down to the bladder muscle it appeared to be an aggressive tumor may be T1 invasion but no muscle invasion was recognized on resection. I then cauterized the base to control hemostasis and then a put a three-way catheter in the bladder for continuous irrigation all the chips were handed off as a specimen patient's anesthetic is being reversed and taken back to the PACU in good condition with continuous irrigation we will keep in the hospital for continuous irrigation to control bleeding. Surgeon: Jose Flores Type of Anesthesia: General Drains: [address] Estimated Blood Loss (mL): 0 Admit VTE Documentation VTE Present on Admission: No VTE Mechan Device Prophylaxis: SCD's VTE Pharm Prophylaxis ordered?: No
--- OUTSIDE RECORDS SUMMARY | 2023-06-21 17:21 | XMS RPT_ITS | CCD ---
Author Name Unknown Address [address] [place] [address] Organization [facility] Results Test Name Value Interpretation [...] DATE CREATED AUTHOR AUTHOR'S TERRIE ATION 03/22/2019 [facility] Reference Lab FOR RECORDS PERTAINING TO PATIENTS [...] BE BASED ON THE PRIMARY CLINICAL RECORDS. [facility]. provides no warranty or guarantee of the accuracy or completeness of information in this document.
[2023-06-21 17:33] LABS: Bedside Glucose 130 mg/dL (74-106)
[2023-06-21] MEDS: Lactated Ringers 1,000 ML 125 ML IV (18:23)
[2023-06-21] MEDS: Ciprofloxacin 400 MG/200 ML BAG 200 MG IV (20:34)
[2023-06-21] MEDS: Atorvastatin Calcium 10 MG Tablet PO (20:34)
[2023-06-21] MEDS: Docusate Sodium 100 MG Capsule 200 MG PO (20:34)
[2023-06-21] MEDS: Gabapentin 600 MG Tablet PO (20:41)
[2023-06-21] MEDS: Ketorolac 15 MG/ML Vial IV (20:41)
[2023-06-21] MEDS: 0.9% Saline Lock 10 ML Syringe IV ×2 (20:42→21:20)
[2023-06-21] MEDS: Morphine 2 MG/ML Syringe IV (21:19)
[2023-06-21] MEDS: Ondansetron 4 MG/2 ML Vial IV (21:19)
[2023-06-22] MEDS: Lactated Ringers 1,000 ML 125 ML IV (02:55)
[2023-06-22] MEDS: Acetaminophen 325 MG Tablet PO (02:59)
[2023-06-22 03:06] VITALS: BP 117/91; PULSE 84; RESP 16; TEMP 36.6; O2SAT 95
[2023-06-22] MEDS: Gabapentin 600 MG Tablet PO ×3 (05:04→21:26)
[2023-06-22 05:37] VITALS: BP 127/68; PULSE 80; RESP 16; TEMP 36.6; O2SAT 97
[2023-06-22 07:27] LABS: Absolute Lymphocyte Count 0.59 X10^3/uL (0.83-4.51); Basophil# 0.07 X10^3/uL; Basophil% 0.4 % (0-1); Hematocrit 33.5 % (40-54); Hemoglobin 10.8 g/dL (13.0-16.5); Lymphocyte # 0.59 X10^3/ul (0.83-4.51); Lymphocyte % 3.5 % (19-41); Mean Corp Hgb Conc 32.2 g/dL (32-36); Mean Corpuscular Volume 90.1 fL (80-94); Mean Platelet Vol. 10.9 fl (6.2-12.0); Monocyte# 1.02 X10^3/uL; Monocyte% 6.1 % (0-10); NRBC Flagged by Analyzer 0 % (0-5); Neutrophil # 15.01 X10^3/uL (2.7-7.7); Neutrophil % 89.2 % (47-70); POSITIVE DIFFERENTIAL YES; Platelet Count 256 K/mm3 (150-450); RBC Distribution Width CV 13.3 % (11.6-14.6); RBC Distribution Width SD 43.8 fl (35.1-43.9); Red Blood Count 3.72 M/mm3 (4.6-6.2); White Blood Count 16.8 K/mm3 (4.4-11.0)
[2023-06-22 07:30] LABS: Differential Indicated SCAN CRITERIA MET
--- NOTE | 2023-06-22 07:42 | PCM.PN.GU ---
Subjective Subjective Urine still bloody continue CBI Objective Data Objective Data Vital Signs: Vital Signs Temp Pulse Resp BP Pulse Ox O2 Del Method 98 F 80 16 127/68 H 97 Room Air 06/22/23 05:37 06/22/23 05:37 06/22/23 05:37 06/22/23 05:37 06/22/23 05:37 06/22/23 05:37 Oxygen Delivery Method Room Air Weight: 101 kg Body Mass Index (BMI) 30.2 Intake & Output: Intake and Output for Last 24 Hours 06/20/23 06/21/23 06/22/23 23:59 23:59 23:59 Intake Total 1702.92 / 1702.92 728.75 / 728.75 Output Total 39638 / 03930 1260 / 1260 Balance -01376.08 / -02154.08 -531.25 / -531.25 Lab / Micro Data 06/22/23 06:38 06/16/23 14:16 Labs: Laboratory Results - last 24 hr 06/21/23 13:26: POC PT 14.5, INR 1.3 06/21/23 13:55: POC Glucose 112 H 06/21/23 17:12: POC Glucose 130 H 06/22/23 06:38: WBC 16.8 H, RBC 3.72 L, Hgb 10.8 L, Hct 33.5 L, MCV 90.1, MCH 29.0, MCHC 32.2, RDW Std Deviation 43.8, RDW Coeff of Nicolle 13.3, Plt Count 256, MPV 10.9, Immature Gran % (Auto) 0.800, Neut % (Auto) 89.2 H, Lymph % (Auto) 3.5 L, [place] % (Auto) 6.1, Eos % (Auto) 0.0, Baso % (Auto) 0.4, Absolute Neuts (auto) 15.0 H, Absolute Lymphs (auto) 0.59 L, Nucleated RBC % 0
[2023-06-22 08:35] VITALS: BP 154/61; PULSE 68; RESP 16; TEMP 36.5; O2SAT 98
[2023-06-22] MEDS: Ciprofloxacin 400 MG/200 ML BAG 200 MG IV (10:15)
[2023-06-22] MEDS: Docusate Sodium 100 MG Capsule 200 MG PO ×2 (10:15→21:26)
[2023-06-22] MEDS: Insulin Glargine-YFGN 100 UNIT/ML Pen 15 UNIT SC (10:15)
[2023-06-22 10:42] LABS: Bedside Glucose 236 mg/dL (74-106)
--- NOTE | 2023-06-22 12:21 | CASEMGMT ---
RN?CM?CODING AND REIMBURSEMENT SPECIALIST?CM?to room to meet with patient for initial transition planning/care coordination?assessment.?RN?CM?introduced self and role at [facility].? Pt voices understanding and consents to?assessment?at this time.? Pt resting in bed in no distress at this time.? , Shonda, @ bedside. Pt is A/O at this time and answers all questions appropriately.?? Care providers, pharmacy, and demographics verified/updated at this time. PCP: Dr Steele Specialists: Dr Flores-urology, Dr Mata-nephrology. Pt used to see Dr Sandoval, but no longer follows up with him. [facility] Insurance: [employer] Prescription Benefit:?Yes Living Will/HPOA:?Pt does not currently have LW/HCPOA.Pt made aware SW can assist w/this while @ [facility] or that he can contact SW as an out-pt and make appt in the future if he decides he would like to talk with someone about this or would like to utilize [facility] social work for advanced directive completion.?Pt voices understanding. LNOK: , Shonda. Son, Chad. Pt has 2 other biological adult children. Living Arrangements: Lives w/his in one-story home w/basement w/2 steps to enter. Pt states he does go to the basement 2-3 x's/week and denies having difficulty w/stairs. Independent w/ADL's and manages his own medications. does home mgmt tasks. Transportation:?Pt states drives self and states no transportation concerns at this time.? also drives. DME: ?States has the following DME:?has a walker available, but does not use. Has a CGM w/sufficient supplies. Has all insulin and needles needed. Also has a back-up glucometer. Pt states no need for further DME at this time.? HHC/SNF: No hx of either. No needs identified. Pt states he has had a F/C in the past @ home and states feels comfortable managing one again if he goes home w/one. Pt wishes to return home and states has no concerns with going home at time of discharge.? ?CM?to follow for any further discharge planning/needs.? Pt voices no further concerns/needs at this time.? Advised pt to ask for?CM?if any further questions/concerns/needs arise.? Voices understanding. PLAN:??Home w/spousal support and discharge plans in place. Dio BSN?RN?CM
[2023-06-22 15:23] VITALS: BP 126/58; PULSE 74; RESP 18; TEMP 36.3; O2SAT 98
[2023-06-22] MEDS: Atorvastatin Calcium 10 MG Tablet PO (21:26)
[2023-06-22 21:45] VITALS: BP 144/54; PULSE 77; RESP 16; TEMP 36.9; O2SAT 98
[2023-06-23 06:48] VITALS: BP 140/53; PULSE 62; RESP 16; TEMP 36.9; O2SAT 98
[2023-06-23] MEDS: Gabapentin 600 MG Tablet PO ×2 (06:50→13:47)
[2023-06-23 07:58] VITALS: BP 127/50; PULSE 64; RESP 18; TEMP 36.3; O2SAT 100
[2023-06-23] MEDS: Insulin Glargine-YFGN 100 UNIT/ML Pen 15 UNIT SC (08:06)
[2023-06-23] MEDS: Docusate Sodium 100 MG Capsule 200 MG PO (08:07)
[2023-06-23 08:48] LABS: Bedside Glucose 159 mg/dL (74-106)
--- NOTE | 2023-06-23 09:29 | CASEMGMT ---
Pt states that he feels safe and is comfortable being DC home today via his . Pt states he is independent with ADLs/ IADLS. Pt denies the use or needs of any DME. Pt reports the RN took out his Abdalla this morning and will not be going home with one. Denies any other needs or concerns regarding DC at this time.
--- NOTE | 2023-06-23 10:59 | PHA.DC.MC.R ---
Pharmacy [facility] has performed discharge medication reconciliation and counseling for this patient. The patient's discharge medication list was reviewed for discrepancies and discrepancies were resolved. The patient was counseled on the following discharge medications and changes in medications for homegoing were reviewed. The Reason for Use, instructions for use, and potential side effects were reviewed for all new medications. The patient's questions regarding all of their medications were answered. 1. Ciprofloxacin 500 mg PO BID x 5 days The patient was able to verbally demonstrate an understanding of their discharge medications. Medications at Discharge Home Medications glucosamine HCl 1,500 mg tablet 1,500 mg PO BID supplement 03/15/19 simvastatin 20 mg tablet 20 mg PO QPM cholesterol 03/15/19 warfarin 6 mg tablet 5 mg PO DAILY SUMOWETHSA 12/06/21 multivitamin 1 tab PO DAILY 12/30/21 cholecalciferol (vitamin D3) 50 mcg (2,000 unit) capsule (Vitamin D3) 50 mcg PO DAILY 06/14/23 gabapentin 600 mg tablet 600 mg PO TID 06/14/23 insulin glargine 100 unit/mL (3 mL) subcutaneous pen (Lantus Solostar U-100 Insulin) 15 unit subcut DAILY 06/14/23 warfarin 6 mg tablet 6 mg PO TUFR 06/14/23 ciprofloxacin HCl 500 mg tablet (Cipro) 500 mg PO BID #10 tabs 06/21/23
--- NOTE | 2023-06-23 12:37 | PCM.PN.GU ---
Subjective Subjective Status post resection of a bladder tumor catheter has been removed and go home after urinate Objective Data Objective Data Vital Signs: Vital Signs Temp Pulse Resp BP Pulse Ox O2 Del Method 97.4 F L 64 18 127/50 H 100 Room Air 06/23/23 07:58 06/23/23 07:58 06/23/23 07:58 06/23/23 07:58 06/23/23 07:58 06/23/23 07:58 Oxygen Delivery Method Room Air Weight: 101 kg Body Mass Index (BMI) 30.2 Intake & Output: Intake and Output for Last 24 Hours 06/21/23 06/22/23 06/23/23 23:59 23:59 23:59 Intake Total 1702.92 / 1702.92 3928.75 / 3928.75 400 / 400 Output Total 25067 / 50851 7360 / 7360 2600 / 2600 Balance -15043.08 / -91182.08 -3431.25 / -3431.25 -2200 / -2200 Lab / Micro Data 06/22/23 06:38 06/16/23 14:16 Labs: Laboratory Results - last 24 hr 06/23/23 07:47: POC Glucose 159 H
[2023-06-23 14:05] VITALS: BP 109/47; PULSE 60; RESP 18; TEMP 36.8; O2SAT 96
== END 2023-06-23 16:21 | disposition home or self-care (01) | DRG 670 ==
LOC: SDC 17:16 → MS3 17:16
PROVIDERS: Anesthesiology; Admitting Provider Urology; PCP Family Medicine; Referring Provider Urology; Visit Provider Urology
PROC: 0TBB8ZZ Excision of Bladder, Via Natural or Artificial Opening Endoscopic (ICD-10-PCS; principal; 2023-06-21 15:10)
DX: C67.2 Malignant neoplasm of lateral wall of bladder (principal); E11.9 Type 2 diabetes mellitus without complications; I48.0 Paroxysmal atrial fibrillation; Z79.4 Long term (current) use of insulin; I10 Essential (primary) hypertension; E78.00 Pure hypercholesterolemia, unspecified; N32.0 Bladder-neck obstruction; N40.1 Benign prostatic hyperplasia with lower urinary tract symptoms; R33.8 Other retention of urine; N32.89 Other specified disorders of bladder; Z79.01 Long term (current) use of anticoagulants; Z79.899 Other long term (current) drug therapy; Z86.16 Personal history of COVID-19; Z85.828 Personal history of other malignant neoplasm of skin; Z87.891 Personal history of nicotine dependence
CPT/HCPCS: 36415; 36416; 80048; 82962; 83036; 85025; 85027; 85610; 88307; 93005; 94668; J7120; A4216; J0744; J2405

== ENCOUNTER 2023-06-24 06:28 | Emergency (ER) | payer MEDICARE, SELFPAY ==
[2023-06-24 06:28] VITALS: BP 137/78; PULSE 78; RESP 16; TEMP 36.4; O2SAT 99; BMI 29.9
--- OUTSIDE RECORDS SUMMARY | 2023-06-24 06:55 | XMS RPT_ITS | CCD ---
Author Name Unknown Address [address] [place] [address] Organization [facility] Results Test Name Value Interpretation Reference Range Facil ity Summary Purpose Family History No Family History Records FoundNo Family History Records Found Advance Directives No Advanced Directives Records FoundNo Advanced Directives Records Found Additional Source Comments (unrecognized sect ion and content) No Status Records FoundNo Status Records Found INFORMATION SOURCE (unrecogn ized section and content) DATE CREATED AUTHOR AUTHOR'S TERRIE ATBRANDON 03/22/2019 [facility] Reference Lab FOR RECORDS PERTAINING [...] BE BASED ON THE PRIMARY CLINICAL RECORDS. [facility]. provides no warranty or guarantee of the accuracy or completeness of information in this document.
--- NOTE | 2023-06-24 07:29 | EX.ED.GUMALE ---
HPI History of Present Illness Chief Complaint: Abdalla C/O Narrative Narrative: 83-year-old male presenting with decreased function of Abdalla catheter. Patient had this placed a couple of days ago after a bladder tumor was removed by neurology. Patient is on Coumadin and his last INR was 1.33 days ago. Patient states urine output stopped this morning. Patient has fever, chills, nausea, vomiting. PFSH PFSH Medical History Alcohol use Anemia Arthritis BPH (benign prostatic hyperplasia) Cancer Cardiology follow-up encounter COVID-19 (04/2021) Dietary restriction Essential hypertension Former smoker High cholesterol History of atrial fibrillation History of echocardiogram History of irregular heartbeat History of pain when walking History of stress test Hyperlipidemia Insulin dependent diabetes mellitus Leg cramps Paroxysmal atrial fibrillation Puncture wound of left middle finger Puncture wound of left ring finger Restless legs Shingles Shortness of breath on exertion Type 2 diabetes mellitus Wears dentures Wears glasses Wears hearing aid Home Medications glucosamine HCl 1,500 mg tablet 1,500 mg PO BID supplement 03/15/19 [History Last Taken 11/12/21] simvastatin 20 mg tablet 20 mg PO QPM cholesterol 03/15/19 [History Last Taken Unknown] warfarin 6 mg tablet 5 mg PO DAILY SUMOWETHSA 12/06/21 [History Last Taken 06/16/23] multivitamin 1 tab PO DAILY 12/30/21 [History Last Taken Unknown] cholecalciferol (vitamin D3) 50 mcg (2,000 unit) capsule (Vitamin D3) 50 mcg PO DAILY 06/14/23 [History Last Taken 06/21/23] gabapentin 600 mg tablet 600 mg PO TID 06/14/23 [History Last Taken 06/21/23] insulin glargine 100 unit/mL (3 mL) subcutaneous pen (Lantus Solostar U-100 Insulin) 15 unit subcut DAILY 06/14/23 [History Last Taken Unknown] warfarin 6 mg tablet 6 mg PO TUFR 06/14/23 [History Last Taken 06/16/23] ciprofloxacin HCl 500 mg tablet (Cipro) 500 mg PO BID #10 tabs 06/21/23 [Rx Last Taken Unknown] Allergy/AdvReac Type Severity Reaction Status Date / Time No Known Allergies Allergy Verified 06/24/23 06:28 Family History Mother Cancer Heart disease Hypertension Daughter Cancer Surgical History History of dental surgery Hx of basal cell carcinoma excision Hx of tonsillectomy Hx of transurethral resection of prostate Hx of vasectomy Social History household members: spouse housing: house Smoking Status: Former smoker alcohol intake: never substance use type: does not use additional social history: DOES USE ASPIRIN DOES USE IBUPROFEN ROS ROS ED Constitutional Constitutional ED: Denies chills, fever(s) or sweats Eyes Eyes: Denies blurry vision or change in vision ENT ENT ED: Denies ear pain or sore throat Cardiovascular Cardiovascular: Denies chest pain, palpitations or racing heartbeat Respiratory/Chest Respiratory/Chest: Denies cough, dyspnea or sputum Gastrointestinal Gastrointestinal: Denies abdominal pain, constipation, diarrhea, nausea or vomiting Genitourinary Genitourinary ED: Reports hematuria and other Details: Decreased urinary output ; Denies dysuria or urinary frequency Musculoskeletal Musculoskeletal: Denies arthralgias, myalgias or neck pain Integumentary Denies abscess, Abrasions or rash Neurologic Neurologic: Denies headache(s), paresthesias or weakness Psychiatric Psychiatric: Denies anxiety, depression, suicidal ideation or suicidal thoughts Endocrine Endocrinology: Denies polydipsia or polyuria EXAM Physical Exam Const Vital Signs: 06/24/23 06:28 Temperature 97.6 F L Temperature Source Temporal Pulse Rate 78 Respiratory Rate 16 Blood Pressure 137/78 H Blood Pressure Mean 97 Pulse Ox 99 Oxygen Delivery Method Room Air Positive well nourished General Appearance ED: Negative for pallor HEENT Reports moist mucous membranes normocephalic Eyes PERRL and EOMs intact bilaterally Resp normal respiratory effort Cardio regular rate and regular rhythm GI non-tender and non-distended Back/Spine no CVA tenderness Extremity normal to inspection Neuro oriented x3 and CN's II-XII intact bilaterally Sensorium / Orientation: alert Motor Exam: strength 5/5 throughout Psych mental status grossly normal Skin General Skin Exam: Negative for jaundice or pallor MDM MDM MDM Narrative Medical decision making narrative: Patient presenting with decreased urinary output of Abdalla catheter secondary to likely blood clots. Patient on Coumadin with last INR 3 days ago 1.3. Patient presented prior to my arrival in the emergency room this morning and he was evaluated at 0 730 and had already had his bladder irrigated and his Abdalla catheter is now flowing. Appears to be a liter of dark fluid fluids 500 cc of 1 urinary container and another 1 actively draining. Patient request to have more irrigation as he is concerned he has stopped flowing. Bladder was irrigated until clear. Leg bag was placed. Patient given follow-up with urology. Return precautions discussed. Impression: 1. Abdalla catheter obstruction Discharge Plan Triage Chief Complaint: Abdalla C/O ED Provider: Miquel Vázquez Dx/Rx/DC Orders Instructions: ED Abdalla Catheter, Care Prescriptions: No Action simvastatin 20 mg tablet 20 mg PO QPM glucosamine HCl 1,500 mg tablet 1,500 mg PO BID warfarin 6 mg tablet 5 mg PO DAILY Hold Instructions: Resume on 07/05/23. multivitamin Tablet 1 tab PO DAILY cholecalciferol (vitamin D3) [Vitamin D3] 50 mcg (2,000 unit) capsule 50 mcg PO DAILY gabapentin 600 mg tablet 600 mg PO TID warfarin 6 mg tablet 6 mg PO TUFR Hold Instructions: Resume on 07/05/23. insulin glargine [Lantus Solostar U-100 Insulin] 100 unit/mL (3 mL) insulin pen 15 unit SUBCUT DAILY ciprofloxacin HCl [Cipro] 500 mg tablet 500 mg PO BID Qty: 10 0RF Primary Care Provider: Lucas Steele Referrals: Lucas Steele MD [Primary Care Provider] - Jose Flores MD [Med Staff - Active Staff] - 3-5 Days Disposition Disposition: Home, Self Care
[2023-06-24 08:22] VITALS: RESP 16
== END 2023-06-24 08:22 | disposition home or self-care (01) ==
PROVIDERS: Emergency Provider Student in an Organized Health Care Education/Training Program; PCP Family Medicine; Visit Provider Student in an Organized Health Care Education/Training Program
DX: T83.091A Other mechanical complication of indwelling urethral catheter, initial encounter (principal); I48.0 Paroxysmal atrial fibrillation; Z87.891 Personal history of nicotine dependence; Z79.01 Long term (current) use of anticoagulants; Z86.16 Personal history of COVID-19; X58.XXXA Exposure to other specified factors, initial encounter
CPT/HCPCS: 99282

== ENCOUNTER 2023-06-24 12:36 | Emergency (ER) | payer MEDICARE, SELFPAY ==
[2023-06-24 12:37] VITALS: BP 134/78; PULSE 64; RESP 14; TEMP 36.4; O2SAT 98; BMI 25.4
--- NOTE | 2023-06-24 15:24 | EDS_ITS ---
HPI <MARSHA Aleman - Last Filed: 06/24/23 17:09> History of Present Illness Chief Complaint: Abdalla C/O Narrative Narrative: Patient presenting today with urinary Abdalla catheter obstruction. He reports that he was here this morning with a similar issue and had his catheter irrigated and it seemed to be flowing okay up until about an hour after he got home. He reports that since about 8 AM there has been no output from the catheter. He reports that he had a bladder tumor removed on Monday by Dr. Flores. There were no surgical complications. He is on Coumadin and last INR was checked 3 days ago and was 1.3. He reports that he feels well otherwise. PFS <MARSHA Aleman - Last Filed: 06/24/23 17:09> PENDING SALE TO [facility] Medical History Alcohol use Anemia Arthritis BPH (benign prostatic hyperplasia) Cancer Cardiology follow-up encounter COVID-19 (04/2021) Dietary restriction Essential hypertension Former smoker High cholesterol History of atrial fibrillation History of echocardiogram History of irregular heartbeat History of pain when walking History of stress test Hyperlipidemia Insulin dependent diabetes mellitus Leg cramps Paroxysmal atrial fibrillation Puncture wound of left middle finger Puncture wound of left ring finger Restless legs Shingles Shortness of breath on exertion Type 2 diabetes mellitus Wears dentures Wears glasses Wears hearing aid Home Medications glucosamine HCl 1,500 mg tablet 1,500 mg PO BID supplement 03/15/19 [History Last Taken 11/12/21] simvastatin 20 mg tablet 20 mg PO QPM cholesterol 03/15/19 [History Last Taken Unknown] warfarin 6 mg tablet 5 mg PO DAILY SUMOWETHSA 12/06/21 [History Last Taken 06/16/23] multivitamin 1 tab PO DAILY 12/30/21 [History Last Taken Unknown] cholecalciferol (vitamin D3) 50 mcg (2,000 unit) capsule (Vitamin D3) 50 mcg PO DAILY 06/14/23 [History Last Taken 06/21/23] gabapentin 600 mg tablet 600 mg PO TID 06/14/23 [History Last Taken 06/21/23] insulin glargine 100 unit/mL (3 mL) subcutaneous pen (Lantus Solostar U-100 Insulin) 15 unit subcut DAILY 06/14/23 [History Last Taken Unknown] warfarin 6 mg tablet 6 mg PO TUFR 06/14/23 [History Last Taken 06/16/23] ciprofloxacin HCl 500 mg tablet (Cipro) 500 mg PO BID #10 tabs 06/21/23 [Rx Last Taken Unknown] Allergy/AdvReac Type Severity Reaction Status Date / Time No Known Allergies Allergy Verified 06/24/23 06:28 Family History Mother Cancer Heart disease Hypertension Daughter Cancer Surgical History History of dental surgery Hx of basal cell carcinoma excision Hx of tonsillectomy Hx of transurethral resection of prostate Hx of vasectomy Social History household members: spouse housing: house Smoking Status: Former smoker alcohol intake: never substance use type: does not use additional social history: DOES USE ASPIRIN DOES USE IBUPROFEN ROS <MARSHA Aleman - Last Filed: 06/24/23 17:09> ROS ED Constitutional Constitutional ED: Denies chills or fever(s) Cardiovascular Cardiovascular: Denies chest pain Respiratory/Chest Respiratory/Chest: Denies cough, dyspnea or tachypnea Gastrointestinal Gastrointestinal: Denies abdominal pain, nausea or vomiting Genitourinary Genitourinary ED: Reports hematuria and other Details: Decreased urinary output Musculoskeletal Musculoskeletal: Denies arthralgias or myalgias Integumentary Denies rash Neurologic Neurologic: Denies weakness EXAM <MARSHA Aleman - Last Filed: 06/24/23 17:09> Physical Exam Const Vital Signs: 06/24/23 12:37 06/24/23 17:13 06/24/23 17:15 Temperature 97.6 F L Temperature Source Temporal Pulse Rate 64 68 62 Respiratory Rate 14 16 16 Blood Pressure 134/78 H Blood Pressure Mean 96 Pulse Ox 98 94 Oxygen Delivery Method Room Air Room Air Positive well nourished, well developed and no apparent distress General Appearance ED: well developed HEENT Reports normocephalic and head/scalp atraumatic Mouth ED: Yes moist mucous membranes normal Eyes PERRL and EOMs intact bilaterally Neck full ROM and supple Chest Wall inspection of chest normal Resp normal respiratory effort and clear to auscultation bilaterally Cardio regular rate and regular rhythm GI soft to palpation, non-tender, non-distended and no masses Back/Spine normal ROM and normal to inspection Extremity normal to inspection and full ROM Neuro oriented x3, CN's II-XII intact bilaterally, moves all extremities, no focal motor deficits and no sensory deficits noted Sensorium / Orientation: awake and alert Psych mental status grossly normal and thought process normal Skin no rashes or lesions noted and no wounds <Chintan Hughes MD - Last Filed: 06/24/23 18:25> Physical Exam Const Vital Signs: 06/24/23 12:37 06/24/23 17:13 06/24/23 17:15 Temperature 97.6 F L Temperature Source Temporal Pulse Rate 64 68 62 Respiratory Rate 14 16 16 Blood Pressure 134/78 H Blood Pressure Mean 96 Pulse Ox 98 94 Oxygen Delivery Method Room Air Room Air [facility] <MARSHA Aleman - Last Filed: 06/24/23 17:09> [facility] Narrative Medical decision making narrative: Patient presenting today due to decreased urinary output since this morning. Abdalla catheter in place since Monday after having a bladder tumor removed by Dr. Flores. He was here in the ED this morning with similar complaints, the catheter was irrigated and seemed to be flowing okay until he got home. Abdalla was irrigated here, several small blood clots were irrigated out by nursing. Patient was observed for a little over an hour and the catheter is now flowing well and urine is clear. I have encouraged him to follow-up with Dr. Flores, he has been given return instructions and will be discharged home in stable condition. He is comfortable with plan <Chintan Hughes MD - Last Filed: 06/24/23 18:25> [facility] Narrative Medical decision making narrative: Patient presenting today due to decreased urinary output since this morning. Abdalla catheter in place since Monday after having a bladder tumor removed by Dr. Flores. He was here in the ED this morning with similar complaints, the catheter was irrigated and seemed to be flowing okay until he got home. Abdalla was irrigated here, several small blood clots were irrigated out by nursing. Patient was observed for a little over an hour and the catheter is now flowing well and urine is clear. I have encouraged him to follow-up with Dr. Flores, he has been given return instructions and will be discharged home in stable condition. He is comfortable with plan. Dr. Hughes: I have personally performed a face to face assessment of the patient and have reviewed the GITA Note. I performed a substantive portion of the visit including all aspects of the following. My cordova findings include: History is recent bladder surgery for mass removal on Monday. Abdalla catheter in place. Seen in the emergency department earlier today with clots. Required irrigation. Returns with clotted Abdalla catheter again. Exam is afebrile. Vital signs noted. Regular rate and rhythm. Lungs clear to auscultation bilaterally. Abdomen soft and nontender. Patient examined after irrigation performed. Abdalla catheter in place, draining very light pink-tinged urine. Clots removed and in urinal. Medical Decision Making: Patient had Abdalla catheter irrigated. He was observed in the emergency department for additional hour, and continues to drain urine with very small clots. He has a follow-up appointment with his urologist next week. I feel he can be discharged to follow-up. He will return with blockage of his Abdalla catheter again. Disposition is discharged home in improved and stable condition. Other additions or changes: [None] Discharge Plan Triage Chief Complaint: Abdalla C/O ED Midlevel Provider: Faby Gregory ED Provider: Chintan Hughes Dx/Rx/DC Orders Clinical Impression: Complication, blocked Abdalla catheter Instructions: ED Abdalla Catheter, Care Prescriptions: No Action simvastatin 20 mg tablet 20 mg PO QPM glucosamine HCl 1,500 mg tablet 1,500 mg PO BID warfarin 6 mg tablet 5 mg PO DAILY Hold Instructions: Resume on 07/05/23. multivitamin Tablet 1 tab PO DAILY cholecalciferol (vitamin D3) [Vitamin D3] 50 mcg (2,000 unit) capsule 50 mcg PO DAILY gabapentin 600 mg tablet 600 mg PO TID warfarin 6 mg tablet 6 mg PO TUFR Hold Instructions: Resume on 07/05/23. insulin glargine [Lantus Solostar U-100 Insulin] 100 unit/mL (3 mL) insulin pen 15 unit SUBCUT DAILY ciprofloxacin HCl [Cipro] 500 mg tablet 500 mg PO BID Qty: 10 0RF Primary Care Provider: Lucas Steele Referrals: Lucas Steele MD [Primary Care Provider] - Jose Flores MD [Med Staff - Active Staff] - As Needed Activity Restrictions/Additional Instructions: Return for any worsening of your symptoms, follow-up with urology. Disposition Disposition: Home, Self Care Discharge Date/Time: 06/24/23 17:15
--- OUTSIDE RECORDS SUMMARY | 2023-06-24 15:57 | XMS RPT_ITS | CCD ---
Author Name Unknown Address [address] [place] [address] Organization [facility] Results Test Name Value Interpretation [...] DATE CREATED AUTHOR AUTHOR'S TERRIE ATBRANDON 03/22/2019 [facility] Reference Lab FOR RECORDS PERTAINING TO [...] BE BASED ON THE PRIMARY CLINICAL RECORDS. [facility]. provides no warranty or guarantee of the accuracy or completeness of information in this document.
[2023-06-24 17:13] VITALS: PULSE 68; RESP 16
[2023-06-24 17:15] VITALS: PULSE 62; RESP 16; O2SAT 94
== END 2023-06-24 17:15 | disposition home or self-care (01) ==
PROVIDERS: Emergency Provider Emergency Medicine; PCP Family Medicine; Visit Provider Emergency Medicine
DX: T83.091A Other mechanical complication of indwelling urethral catheter, initial encounter (principal); Z87.891 Personal history of nicotine dependence; Z86.16 Personal history of COVID-19; X58.XXXA Exposure to other specified factors, initial encounter
CPT/HCPCS: 99282

== ENCOUNTER 2023-06-24 19:46 | Emergency (ER) | payer MEDICARE, SELFPAY ==
[2023-06-24 19:47] VITALS: BP 138/60; PULSE 90; RESP 16; TEMP 35.7; O2SAT 98; BMI 29.9
--- NOTE | 2023-06-24 20:07 | EX.ED.GUMALE ---
HPI History of Present Illness Chief Complaint: Complaint Narrative Narrative: 83-year-old male past medical history of recent bladder mass removal on Monday, 4 days ago, presents to the emergency department again with hematuria and blocked Abdalla catheter. This is his third visit today. He has been seen earlier in the day by Dr. Vázquez, then again in the afternoon by the CASH and myself. He states that he went home after being observed here in the emergency department for an hour, and felt like his Abdalla was being obstructed again. He did feel a gush of urine come out into the Abdalla bag which was dark red, and it is now blocked. He denies any other symptoms. He does not have a large amount of suprapubic discomfort as of yet. He presents because his Abdalla catheter is blocked again, most likely with clot. He has had clot removal twice today already through irrigation. [facility] Medical History Alcohol use Anemia Arthritis BPH (benign prostatic hyperplasia) Cancer Cardiology follow-up encounter COVID-19 (04/2021) Dietary restriction Essential hypertension Former smoker High cholesterol History of atrial fibrillation History of echocardiogram History of irregular heartbeat History of pain when walking History of stress test Hyperlipidemia Insulin dependent diabetes mellitus Leg cramps Paroxysmal atrial fibrillation Puncture wound of left middle finger Puncture wound of left ring finger Restless legs Shingles Shortness of breath on exertion Type 2 diabetes mellitus Wears dentures Wears glasses Wears hearing aid Home Medications glucosamine HCl 1,500 mg tablet 1,500 mg PO BID supplement 03/15/19 [History Last Taken 11/12/21] simvastatin 20 mg tablet 20 mg PO QPM cholesterol 03/15/19 [History Last Taken Unknown] warfarin 6 mg tablet 5 mg PO DAILY SUMOWETHSA 12/06/21 [History Last Taken 06/16/23] multivitamin 1 tab PO DAILY 12/30/21 [History Last Taken Unknown] cholecalciferol (vitamin D3) 50 mcg (2,000 unit) capsule (Vitamin D3) 50 mcg PO DAILY 06/14/23 [History Last Taken 06/21/23] gabapentin 600 mg tablet 600 mg PO TID 06/14/23 [History Last Taken 06/21/23] insulin glargine 100 unit/mL (3 mL) subcutaneous pen (Lantus Solostar U-100 Insulin) 15 unit subcut DAILY 06/14/23 [History Last Taken Unknown] warfarin 6 mg tablet 6 mg PO TUFR 06/14/23 [History Last Taken 06/16/23] ciprofloxacin HCl 500 mg tablet (Cipro) 500 mg PO BID #10 tabs 06/21/23 [Rx Last Taken Unknown] Allergy/AdvReac Type Severity Reaction Status Date / Time No Known Allergies Allergy Verified 06/24/23 06:28 Family History Mother Cancer Heart disease Hypertension Daughter Cancer Surgical History History of dental surgery Hx of basal cell carcinoma excision Hx of tonsillectomy Hx of transurethral resection of prostate Hx of vasectomy Social History household members: spouse housing: house Smoking Status: Former smoker alcohol intake: never substance use type: does not use additional social history: DOES USE ASPIRIN DOES USE IBUPROFEN ROS ROS ED ROS Narrative Constitutional: No fever, no chills. HEENT: No sore throat. No neck pain. No loss of vision. No rhinorrhea. Cardiovascular: No chest pain. No palpitations. No pedal edema. Respiratory: No cough, no shortness of breath. Abdominal: No abdominal pain. No nausea. No vomiting. Genitourinary: No dysuria. Positive hematuria. Blocked Abdalla catheter. Musculoskeletal: No myalgias. No arthralgias. Neurologic: No headaches. No dizziness. No lightheadedness. Skin: No rash. No change in color. Psychiatric: No depression. No anxiety. EXAM Physical Exam Narrative Exam Narrative: Afebrile. Vital signs noted. HEENT: Normocephalic. Atraumatic. PERRL, EOMI. Neck soft and supple. No point tenderness or step off. Cardiovascular: Regular rate and rhythm. No murmurs, rubs, or gallops appreciated. Respiratory: No tachypnea. Lungs clear to auscultation bilaterally. Gastrointestinal: Abdomen soft, nontender, with normoactive bowel sounds. No rebound or guarding. Genitourinary: Holding Abdalla bag with dark red urine contained within. No urine in tubing. Neurological: Awake. Alert. Nonfocal, nonlateralizing. Ambulatory in ED. Skin: No rash. Normal color. No pallor. Musculoskeletal: No pedal edema. Full range of motion extremities. Const Vital Signs: 06/24/23 19:47 Temperature 96.2 F L Temperature Source Temporal Pulse Rate 90 Respiratory Rate 16 Blood Pressure 138/60 H Blood Pressure Mean 86 Pulse Ox 98 Oxygen Delivery Method Room Air MDM MDM MDM Narrative Medical decision making narrative: I reviewed his prior records, and I recall prior to discharge he had very light pink-tinged urine with only very small clots contained in the tubing. As this is his third visit, I do feel that he will require observation. His Abdalla was irrigated and clots were removed. I discussed patient with Dr. Flores who will place the patient on observation. He does not want constant bladder irrigation at this time and will have the RNs manually irrigate should his Abdalla catheter become blocked again. Disposition is assigned to observation. Patient is in stable condition. Discharge Plan Dx/Rx/DC Orders Clinical Impression: Hematuria, Urinary retention, Complication, blocked Abdalla catheter Disposition Disposition: Acute Care Hospital [facility]
[2023-06-24 20:12] VITALS: BP 138/60; PULSE 90; RESP 16; TEMP 35.7; O2SAT 98
--- OUTSIDE RECORDS SUMMARY | 2023-06-24 20:21 | XMS RPT_ITS | CCD ---
Author Name Unknown Address [address] [place] [address] Organization [facility] Results Test Name Value Interpretation [...] DATE CREATED AUTHOR AUTHOR'S TERRIE ATBRANDON 03/22/2019 [facility] FOR RECORDS PERTAINING TO [...] BE BASED ON THE PRIMARY CLINICAL RECORDS. [facility]. provides no warranty or guarantee of the accuracy or completeness of information in this document.
--- OUTSIDE RECORDS SUMMARY | 2023-06-24 20:35 | XMS RPT_ITS | CCD ---
Author Name Unknown Address [address] [place] [address] Organization [facility] Results Test Name Value Interpretation [...] DATE CREATED AUTHOR AUTHOR'S TERRIE ATBRANDON 03/22/2019 [facility] Reference [facility] FOR RECORDS PERTAINING [...] BE BASED ON THE PRIMARY CLINICAL RECORDS. [facility]. provides no warranty or guarantee of the accuracy or completeness of information in this document.
[2023-06-24 21:00] VITALS: BMI 29.5
--- NOTE | 2023-06-24 21:57 | PCM.PN.GU ---
Subjective Subjective Patient came into the ER and had some clots. Irrigated out I came up to see him today and irrigated the catheter he has got no clots whatsoever urine is perfectly crystal-clear I offered to keep in the hospital for observation but he rather go home the urine is draining crystal-clear the nurses give him a catheter tip syringe so he can flush his catheter if it is necessary and he can go home with a catheter the great drainage bag no reason to admit the patient. Objective Data Objective Data Vital Signs: Vital Signs Temp Pulse Resp BP Pulse Ox O2 Del Method 96.2 F L 90 16 138/60 H 98 Room Air 06/24/23 20:12 06/24/23 20:12 06/24/23 20:12 06/24/23 20:12 06/24/23 20:12 06/24/23 20:12 Oxygen Delivery Method Room Air Weight: 98.685 kg Body Mass Index (BMI) 29.5
[2023-06-24 22:07] VITALS: BP 154/46; PULSE 73; RESP 18; TEMP 36.6; O2SAT 98
== END 2023-06-24 22:15 | disposition home or self-care (01) ==
LOC: ED 20:19 → MS3 22:27
PROVIDERS: Emergency Provider Urology; PCP Family Medicine; Visit Provider Urology
DX: T83.091A Other mechanical complication of indwelling urethral catheter, initial encounter (principal); I48.0 Paroxysmal atrial fibrillation; E11.9 Type 2 diabetes mellitus without complications; Z79.4 Long term (current) use of insulin; R31.9 Hematuria, unspecified; I10 Essential (primary) hypertension; E78.00 Pure hypercholesterolemia, unspecified; Z87.891 Personal history of nicotine dependence; R33.8 Other retention of urine; N40.1 Benign prostatic hyperplasia with lower urinary tract symptoms; Z79.01 Long term (current) use of anticoagulants; Z79.899 Other long term (current) drug therapy
CPT/HCPCS: 99282; 99283

== ENCOUNTER → 2024-01-03 | Outpatient (CLI) | payer MEDICARE, SELFPAY ==
[2024-01-03 09:58] LABS: Hematocrit 42.7 % (40-54); Hemoglobin 14.1 g/dL (13.0-16.5); Mean Corpuscular Hgb 28.6 pg (27.0-32.0); Mean Corpuscular Volume 86.6 fL (80-94); Mean Platelet Vol. 11.7 fl (6.2-12.0); Platelet Count 217 K/mm3 (150-450); RBC Distribution Width CV 14.4 % (11.6-14.6); RBC Distribution Width SD 46.1 fl (35.1-43.9); Red Blood Count 4.93 M/mm3 (4.6-6.2); White Blood Count 6.7 K/mm3 (4.4-11.0)
[2024-01-03 10:21] LABS: AST(SGOT) 22 U/L (15-37); Alanine Aminotransfer ALT/SGPT 24 U/L (16-61); Albumin, Serum 3.4 g/dL (3.2-5.0); Alkaline Phosphatase 71 U/L (45-117); Anion Gap 4 (5-15); BUN 25 mg/dL (7-18); BUN/Creat Ratio 11.4 RATIO (10-20); Calcium,Total 9.1 mg/dL (8.5-10.1); Chloride 110 mmol/L (98-107); Cholesterol 129 mg/dL (200); EST Glomerular Filtration Rate 30 mL/min (>60); Est Glom Filt Rate - Afr Amer 37 mL/min (>60); Globulin 3.5 g/dL (2.2-4.2); Glucose 116 mg/dL (74-106); High Density Lipoprotein 48 mg/dL; Potassium 4.2 mmol/L (3.5-5.1); Protein, Total 6.9 g/dL (6.4-8.2); Sodium Level 139 mmol/L (136-145); Thyroid Stim Hormone (TSH) 5.64 uIU/mL (0.358-3.74); Triglycerides 74 mg/dL; Very Low Density Lipoprotein 15 mg/dL (5-40)
[2024-01-03 10:25] LABS: Vitamin B12 337 pg/mL (211-911); Vitamin D,25 Hydroxy 35.6 ng/mL
[2024-01-08 15:49] LABS: T4 Free Direct 0.99 ng/dL (0.76-1.46)
== END | disposition home or self-care (01) ==
LOC: MFPLAB 08:00
PROVIDERS: PCP Family Medicine; Visit Provider Family Medicine
DX: E03.8 Other specified hypothyroidism (principal); E11.22 Type 2 diabetes mellitus with diabetic chronic kidney disease; N18.9 Chronic kidney disease, unspecified; D64.9 Anemia, unspecified; E55.9 Vitamin D deficiency, unspecified
CPT/HCPCS: 36415; 80053; 80061; 82306; 82607; 84439; 84443; 85027

== ENCOUNTER → 2024-04-02 | Outpatient (CLI) | payer MEDICARE, SELFPAY ==
[2024-04-02 17:41] LABS: Hematocrit 41.4 % (40-54); Hemoglobin 13.2 g/dL (13.0-16.5); Mean Corp Hgb Conc 31.9 g/dL (32-36); Mean Corpuscular Hgb 28.6 pg (27.0-32.0); Mean Corpuscular Volume 89.8 fL (80-94); Mean Platelet Vol. 10.5 fl (6.2-12.0); Platelet Count 369 K/mm3 (150-450); RBC Distribution Width CV 13.4 % (11.6-14.6); Red Blood Count 4.61 M/mm3 (4.6-6.2); White Blood Count 9.9 K/mm3 (4.4-11.0)
[2024-04-02 17:49] LABS: International Normalized Ratio 3.5; Prothrombin Time (Protime)PT. 34.8 SECONDS (11.7-14.9)
[2024-04-02 18:24] LABS: Anion Gap 5 (5-15); BUN 33 mg/dL (7-18); BUN/Creat Ratio 11.7 RATIO (10-20); Calcium,Total 9.2 mg/dL (8.5-10.1); Chloride 109 mmol/L (98-107); Creatinine, Serum 2.81 mg/dL (0.70-1.30); EST Glomerular Filtration Rate 23 mL/min (>60); Est Glom Filt Rate - Afr Amer 28 mL/min (>60); Glucose 190 mg/dL (74-106); Iron 49 ug/dL (65-175); Potassium 4.9 mmol/L (3.5-5.1); Sodium Level 138 mmol/L (136-145); T4 Free Direct 0.94 ng/dL (0.76-1.46)
== END | disposition home or self-care (01) ==
LOC: MFPLAB 14:25
PROVIDERS: PCP Family Medicine; Visit Provider Family Medicine
DX: I48.91 Unspecified atrial fibrillation (principal); N18.4 Chronic kidney disease, stage 4 (severe); E03.8 Other specified hypothyroidism
CPT/HCPCS: 36415; 80048; 83540; 83970; 84439; 84443; 85027; 85610

== ENCOUNTER → 2024-04-29 | Outpatient (CLI) | payer MEDICARE, SELFPAY | END | disposition home or self-care (01) | PROVIDERS: PCP Family Medicine; Referring Provider Internal Medicine Nephrology; Visit Provider Internal Medicine Nephrology | DX: N39.0 Urinary tract infection, site not specified (principal) | CPT/HCPCS: 87077; 87086; 87088; 87186 ==

== ENCOUNTER → 2024-07-03 | Outpatient (CLI) | payer MEDICARE, SELFPAY ==
[2024-07-03 18:49] LABS: Anion Gap 8 (5-15); BUN 28 mg/dL (7-18); BUN/Creat Ratio 10.9 RATIO (10-20); Calcium,Total 8.8 mg/dL (8.5-10.1); Chloride 106 mmol/L (98-107); Creatinine, Serum 2.57 mg/dL (0.70-1.30); EST Glomerular Filtration Rate 25 mL/min (>60); Est Glom Filt Rate - Afr Amer 31 mL/min (>60); Glucose 185 mg/dL (74-106); Potassium 4.6 mmol/L (3.5-5.1); Sodium Level 139 mmol/L (136-145)
== END | disposition home or self-care (01) ==
PROVIDERS: PCP Family Medicine; Referring Provider Family Medicine; Visit Provider Family Medicine
DX: N18.4 Chronic kidney disease, stage 4 (severe) (principal)
CPT/HCPCS: 36415; 80048

== ENCOUNTER → 2024-08-21 | Outpatient (CLI) | payer MEDICARE, SELFPAY ==
--- NOTE | 2024-08-21 10:28 | RAD_ITS ---
PROCEDURE: CHEST PA AND LATERAL REASON FOR EXAM: Bronchitis TECHNIQUE: PA and lateral views of the chest. COMPARISON: 04/05/2022. FINDINGS: Heart: Similar borderline cardiomegaly.. Mediastinum: Minimal atherosclerosis in the aortic arch. Lungs/pleura: Similar mild interstitial prominence. No effusion or visible pneumothorax. Bones: Demineralization. Multilevel spondylosis. Slightly exaggerated thoracic kyphosis. RAD/Chest PA and Lateral IMPRESSION: 1. Similar mild interstitial prominence which may indicate emphysema. No new f ocal consolidation. 2. Additional description as above. Reading Location: [id number]
== END | disposition home or self-care (01) ==
LOC: MTRAD 10:27
PROVIDERS: PCP Family Medicine; Referring Provider Family Medicine; Visit Provider Family Medicine
DX: J40 Bronchitis, not specified as acute or chronic (principal)
CPT/HCPCS: 71046

== ENCOUNTER → 2024-10-14 | Outpatient (CLI) | payer MEDICARE, SELFPAY ==
[2024-10-14 18:10] LABS: Hematocrit 38.9 % (40-54); Hemoglobin 12.8 g/dL (13.0-16.5); Mean Corp Hgb Conc 32.9 g/dL (32-36); Mean Corpuscular Hgb 29.2 pg (27.0-32.0); Mean Corpuscular Volume 88.6 fL (80-94); Mean Platelet Vol. 11.3 fl (6.2-12.0); Platelet Count 212 K/mm3 (150-450); RBC Distribution Width CV 13.7 % (11.6-14.6); RBC Distribution Width SD 44.7 fl (35.1-43.9); Red Blood Count 4.39 M/mm3 (4.6-6.2); White Blood Count 7.3 K/mm3 (4.4-11.0)
[2024-10-14 18:44] LABS: Protein, Urine (Random) 9.4 mg/dL (0.0-12.0); Protein:Creat Ratio 149 mg/g CRE (0-200)
[2024-10-14 18:48] LABS: PTHIN 156 pg/mL (11-61)
[2024-10-14 19:00] LABS: Albumin, Serum 3.9 g/dL (3.4-4.8); Anion Gap 11 (5-15); BUN 31 mg/dL (4-19); BUN/Creat Ratio 12.3 RATIO (10-20); Calcium,Total 8.9 mg/dL (7.6-11.0); Carbon Dioxide 21.1 mmol/L (21.0-32.0); Chloride 107 mmol/L (98-108); Creatinine, Serum 2.54 mg/dL (0.70-1.20); EST Glomerular Filtration Rate 24 (>60); Glucose 183 mg/dL (70-99); Phosphorus 4.4 mg/dL (2.7-4.5); Potassium 4.6 mmol/L (3.3-5.1); Sodium Level 139 mmol/L (133-145); Vitamin D,25 Hydroxy 45.9 ng/mL (30-100)
== END | disposition home or self-care (01) ==
LOC: MTLAB 14:53
PROVIDERS: PCP Family Medicine; Referring Provider Internal Medicine Nephrology; Visit Provider Internal Medicine Nephrology
DX: N18.32 Chronic kidney disease, stage 3b (principal)
CPT/HCPCS: 36415; 80069; 82306; 82570; 83970; 84156; 85027

== ENCOUNTER → 2024-12-23 | Outpatient (CLI) | payer MEDICARE, SELFPAY | END | disposition home or self-care (01) | PROVIDERS: PCP Family Medicine | DX: N39.0 Urinary tract infection, site not specified (principal) | CPT/HCPCS: 87077; 87086; 87088; 87186 ==

== ENCOUNTER 2025-01-31 10:36 | Emergency (ER) | payer MEDICARE, OTHER, SELFPAY ==
[2025-01-31] VITALS (14 sets, daily range): BP systolic 156–195; BP diastolic 57–92; PULSE 70–85; RESP 13–22; TEMP 36.6–38.4; O2SAT 93–100; BMI 29.7
--- NOTE | 2025-01-31 11:05 | EKG12_ITS ---
Test Reason : SOB Blood Pressure : */* mmHG Vent. Rate : 81 BPM Atrial Rate : * BPM P-R Int : * ms QRS Dur : 106 ms QT Int : 362 ms P-R-T Axes : * -10 35 degrees QTcB Int : 420 ms Atrial fibrillation with premature ventricular or aberrantly conducted complexes Incomplete left bundle branch block Abnormal ECG Confirmed by LYN SALAZAR, WOLFGANG ([id number]), multimedia editor SHAUNNA GRANT ([id number]) on 02/03/2025 9:19:07 AM Referred By: Confirmed By: WOLFGANG NICHOLSON MD
--- NOTE | 2025-01-31 11:06 | ED.VIS.DYS ---
HPI <MARSHA Sullivan - Last Filed: 01/31/25 16:32> History of Present Illness Chief Complaint: Cough Narrative Narrative: 85-year-old male with past medical history of HTN, HLD, DM2, CKD, A-fib on warfarin states he has had a hoarse voice for couple days and today developed a cough, shortness of breath, and audible rattling in his chest. He developed fever and chills over last few days. He did not take antipyretics today. He denies chest pain or nausea or vomiting. He quit smoking about 50 years ago. 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 He does not wear home oxygen PFS <MARSHA Sullivan - Last Filed: 01/31/25 16:32> [facility] Medical History Alcohol use Anemia Arthritis BPH (benign prostatic hyperplasia) Cancer Cardiology follow-up encounter COVID-19 (04/2021) Dietary restriction Essential hypertension Former smoker High cholesterol History of atrial fibrillation History of echocardiogram History of irregular heartbeat History of pain when walking History of stress test Hyperlipidemia Insulin dependent diabetes mellitus Leg cramps Paroxysmal atrial fibrillation Puncture wound of left middle finger Puncture wound of left ring finger Restless legs Shingles Shortness of breath on exertion Type 2 diabetes mellitus Wears dentures Wears glasses Wears hearing aid Home Medications ?Medication ?Instructions ?Recorded ?Last Taken ?Type glucosamine HCl 1,500 mg tablet 1,500 mg PO BID supplement 03/15/19 11/12/21 History simvastatin 20 mg tablet 20 mg PO QPM cholesterol 03/15/19 Unknown History warfarin 6 mg tablet 5 mg PO DAILY SUMOWETHSA 12/06/21 06/16/23 History Held on 06/21/23. Instructions: Resume on 07/05/23. multivitamin 1 tab PO DAILY 12/30/21 Unknown History cholecalciferol (vitamin D3) 50 50 mcg PO DAILY 06/14/23 06/21/23 History mcg (2,000 unit) capsule (Vitamin D3) gabapentin 600 mg tablet 600 mg PO TID 06/14/23 06/21/23 History insulin glargine 100 unit/mL (3 15 unit subcut DAILY 06/14/23 Unknown History mL) subcutaneous pen (Lantus Solostar U-100 Insulin) warfarin 6 mg tablet 6 mg PO TUFR 06/14/23 06/16/23 History Held on 06/21/23. Instructions: Resume on 07/05/23. amoxicillin 500 mg capsule 500 mg PO Q12H 06/24/23 Unknown History albuterol sulfate 90 mcg/actuation 2 puff inhalation Q6H PRN 01/31/25 Unknown Rx aerosol inhaler (Ventolin HFA) shortness of breath or wheezing #6.7 grams Allergy/AdvReac Type Severity Reaction Status Date / Time No Known Allergies Allergy Verified 06/24/23 06:28 Family History Mother Cancer Heart disease Hypertension Daughter Cancer Surgical History History of dental surgery Hx of basal cell carcinoma excision Hx of tonsillectomy Hx of transurethral resection of prostate Hx of vasectomy Social History household members: spouse housing: house Smoking Status: Former smoker alcohol intake: never substance use type: does not use additional social history: DOES USE ASPIRIN DOES USE IBUPROFEN ROS <MARSHA Sullivan - Last Filed: 01/31/25 16:32> ROS ED ROS Narrative Constitutional: Positive for fever, chills. CVS: Negative for palpitations, chest pain. Respiratory: Positive for shortness of breath, cough. GI: Negative for abdominal pain, nausea, diarrhea. EXAM <MARSHA Sullivan - Last Filed: 01/31/25 16:32> Physical Exam Narrative Exam Narrative: CONST: Patient sitting in no acute distress. EYES: Normal inspection. NECK: Normal inspection. RESP: Audible laterally while talking to the patient but he is able to speak in full sentences, no pursed of breathing, no retractions. Crackles throughout the right lung base. CVS: Regular rate and rhythm, no murmur, no gallop. SKIN: Color normal, no rash, warm, dry, intact. EXTREMITIES: Normal appearance, no pedal edema. NEURO: Alert and answering questions appropriately. PSYCH: Normal affect. Const Vital Signs: 01/31/25 10:37 01/31/25 10:39 01/31/25 11:05 Temperature 101.2 F H 101.2 F H Temperature Source Oral Oral Pulse Rate 85 85 Respiratory Rate 19 H 19 H Respiratory Effort Respiratory Depth Respiratory Pattern Blood Pressure 181/74 H 181/74 H Blood Pressure Mean 109 109 Pulse Ox 95 95 93 Oxygen Delivery Method Room Air Room Air Room Air 01/31/25 11:18 01/31/25 11:19 01/31/25 11:39 Temperature 101 F H Temperature Source Oral Pulse Rate 79 84 Respiratory Rate 20 H 13 Respiratory Effort Short of Breath Respiratory Depth Deep Respiratory Pattern Normal Blood Pressure 156/92 H Blood Pressure Mean 113 Pulse Ox 96 Oxygen Delivery Method Room Air Room Air 01/31/25 12:00 01/31/25 12:03 01/31/25 12:15 Temperature 101.2 F H Temperature Source Oral Pulse Rate 77 78 76 Respiratory Rate 21 H 21 H 22 H Respiratory Effort Respiratory Depth Respiratory Pattern Blood Pressure 195/76 H 169/83 H Blood Pressure Mean 115 105 Pulse Ox 97 96 96 Oxygen Delivery Method Room Air 01/31/25 12:30 01/31/25 12:45 01/31/25 13:00 Temperature Temperature Source Pulse Rate 78 70 72 Respiratory Rate 22 H 22 H 18 Respiratory Effort Respiratory Depth Respiratory Pattern Blood Pressure 171/71 H 177/66 H 164/61 H Blood Pressure Mean 99 97 87 Pulse Ox 95 95 97 Oxygen Delivery Method Room Air Room Air 01/31/25 13:52 Temperature 98 F Temperature Source Pulse Rate 75 Respiratory Rate 14 Respiratory Effort Respiratory Depth Respiratory Pattern Blood Pressure 159/57 H Blood Pressure Mean 91 Pulse Ox 100 Oxygen Delivery Method <Dr. Damir Israel MD - Last Filed: 01/31/25 11:38> Physical Exam Const Vital Signs: 01/31/25 10:37 01/31/25 10:39 01/31/25 11:05 Temperature 101.2 F H 101.2 F H Temperature Source Oral Oral Pulse Rate 85 85 Respiratory Rate 19 H 19 H Respiratory Effort Respiratory Depth Respiratory Pattern Blood Pressure 181/74 H 181/74 H Blood Pressure Mean 109 109 Pulse Ox 95 95 93 Oxygen Delivery Method Room Air Room Air Room Air 01/31/25 11:18 01/31/25 11:19 01/31/25 11:39 Temperature 101 F H Temperature Source Oral Pulse Rate 79 84 Respiratory Rate 20 H 13 Respiratory Effort Short of Breath Respiratory Depth Deep Respiratory Pattern Normal Blood Pressure 156/92 H Blood Pressure Mean 113 Pulse Ox 96 Oxygen Delivery Method Room Air Room Air 01/31/25 12:00 01/31/25 12:03 01/31/25 12:15 Temperature 101.2 F H Temperature Source Oral Pulse Rate 77 78 76 Respiratory Rate 21 H 21 H 22 H Respiratory Effort Respiratory Depth Respiratory Pattern Blood Pressure 195/76 H 169/83 H Blood Pressure Mean 115 105 Pulse Ox 97 96 96 Oxygen Delivery Method Room Air 01/31/25 12:30 01/31/25 12:45 01/31/25 13:00 Temperature Temperature Source Pulse Rate 78 70 72 Respiratory Rate 22 H 22 H 18 Respiratory Effort Respiratory Depth Respiratory Pattern Blood Pressure 171/71 H 177/66 H 164/61 H Blood Pressure Mean 99 97 87 Pulse Ox 95 95 97 Oxygen Delivery Method Room Air Room Air 01/31/25 13:52 Temperature 98 F Temperature Source Pulse Rate 75 Respiratory Rate 14 Respiratory Effort Respiratory Depth Respiratory Pattern Blood Pressure 159/57 H Blood Pressure Mean 91 Pulse Ox [address] [facility] <MARSHA Sullivan - Last Filed: 01/31/25 16:32> [facility] Narrative Medical decision making narrative: History gathered from: Patient and spouse Differential includes but not limited to pneumonia, CHF, viral illness 85-year-old male presents with fever, cough, rattling in his chest that started today preceded by few days of hoarseness in his voice. He appears well and nontoxic. He is febrile at 101.2 ?F with otherwise stable vital signs. He speaking full sentences and 95% on room air. Does have audible rattling/Rales more so on the right side. He is not overtly wheezing but was given a DuoNeb and does feel improved. CBC is unremarkable. Electrolytes are normal. Creatinine of 2.48 is at baseline. BNP is 2261 with no prior for comparison; last echo from 2021 showed normal EF of 60%. He has no clinical signs of fluid overload. Chest x-ray shows cardiomegaly with no other acute findings. Initially I considered ordering CT scan of the chest but then his viral swab did return positive for COVID-19 which explains his symptoms. His ambulatory pulse ox was 94% or above and he is comfortable going home. Since he had some improvement after aerosols I prescribed an albuterol inhaler, discussed regimen of fluids and Tylenol, and return precautions. He was discharged in stable condition. External records reviewed: 01/03/2022 echo shows EF of 60%, biatrial enlargement, no significant valvular abnormalities. I have personally performed a face to face assessment of the patient and have reviewed the GITA Note. I performed a substantive portion of the visit including all aspects of the following. My cordova findings include: History is 85-year-old male history of COPD not on O2. Yesterday started having a raspy voice and cough. Today shortness of breath and fever. No vomiting. No dysuria. At times he does have a productive cough of green-colored sputum. No hemoptysis. Exam is [[id number] male sitting upright in bed. Vital signs stable weight has a fever 1012.2 H EENT exam pupils react to light. Moist Saji membranes. Neck nontender no JVD. No lymphadenopathy. Lungs coarse breath sounds bilaterally. Rhonchi on the right. Heart regular rhythm rate about 85 no murmur. Chest wall ribs nontender. Abdomen soft nontender. Moving all 4 extremities. 5 out of 5 safety spec strength. Dorsi plantarflexion intact. Nontender no edema no cords. Neurologically patient is awake alert. Answer question following commands.] Medical Decision Making [85-year-old male with cough and fever rule out pneumonia versus other infectious etiologies. Aerosols. Tylenol for his fever.] Other additions or changes: [None] Lab Data Labs: Laboratory Results - last 24 hr 01/31/25 11:07 WBC 9.5 RBC 5.04 Hgb 14.5 Hct 43.5 MCV 86.3 MCH 28.8 MCHC 33.3 RDW Std Deviation 45.9 H RDW Coeff of Nicolle 14.5 Plt Count 214 MPV 10.7 Immature Gran % (Auto) 0.400 Neut % (Auto) 81.1 H Lymph % (Auto) 10.7 L Jenkins % (Auto) 6.7 Eos % (Auto) 0.3 Baso % (Auto) 0.8 Absolute Neuts (auto) 7.7 Absolute Lymphs (auto) 1.01 Nucleated RBC % 0 PT 26.5 H INR 2.4 APTT 29.9 Sodium 137 Potassium 4.3 Chloride 103 Carbon Dioxide 21.9 Anion Gap 12 BUN 29 H Creatinine 2.48 H Est GFR (MDRD) Non-Af 25 L BUN/Creatinine Ratio 11.5 Glucose 171 H Lactic Acid 1.6 Calcium 9.2 Total Bilirubin 0.98 AST 25 ALT 18 Alkaline Phosphatase 73 NT pro BNP II 2261 H Total Protein 7.1 Albumin 4.3 Globulin 2.9 Albumin/Globulin Ratio 1.5 Radiography Diagnostic Testing: Clinical Impression(s) from Imaging Studies Chest X-Ray 01/31/25 11:40 IMPRESSION: Cardiac enlargement. Reading Location: [facility] ED attending interpretation of two-view chest x-ray shows cardiomegaly, no acute infiltrate or effusion. EKG Initial EKG: Attestation: I personally reviewed and interpreted this EKG as follows: Interpretation: No Acute Injury Pattern and Atrial Fibrillation Comments: Atrial fibrillation 81 bpm with occasional PVCs Incomplete LBBB No acute ST changes Prior EKG tracings: available for review Prior: Unchanged <Dr. Damir Israel MD - Last Filed: 01/31/25 11:38> [facility] MDM Narrative Medical decision making narrative: I have personally performed a face to face assessment of the patient and have reviewed the GITA Note. I performed a substantive portion of the visit including all aspects of the following. My cordova findings include: History is 85-year-old male history of COPD not on O2. Yesterday started having a raspy voice and cough. Today shortness of breath and fever. No vomiting. No dysuria. At times he does have a productive cough of green-colored sputum. No hemoptysis. Exam is [[id number] male sitting upright in bed. Vital signs stable weight has a fever 1012.2 H EENT exam pupils react to light. Moist Saji membranes. Neck nontender no JVD. No lymphadenopathy. Lungs coarse breath sounds bilaterally. Rhonchi on the right. Heart regular rhythm rate about 85 no murmur. Chest wall ribs nontender. Abdomen soft nontender. Moving all 4 extremities. 5 out of 5 safety spec strength. Dorsi plantarflexion intact. Nontender no edema no cords. Neurologically patient is awake alert. Answer question following commands.] Medical Decision Making [85-year-old male with cough and fever rule out pneumonia versus other infectious etiologies. Aerosols. Tylenol for his fever.] Other additions or changes: [None] History & Record Review Discussion w/independent historian: Patient and Family Additional record(s) reviewed:: Prior inpatient record, Prior outpatient record, Prior ED visit and Prior labs Lab Data Attestation: I reviewed the patient's lab results. Lab results narrative: CBC shows a white count 9. H&H 14 and 43. Platelets 214. Labs: Laboratory Results - last 24 hr 01/31/25 11:07 WBC 9.5 RBC 5.04 Hgb 14.5 Hct 43.5 MCV 86.3 MCH 28.8 MCHC 33.3 RDW Std Deviation 45.9 H RDW Coeff of Nicolle 14.5 Plt Count 214 MPV 10.7 Immature Gran % (Auto) 0.400 Neut % (Auto) 81.1 H Lymph % (Auto) 10.7 L Jenkins % (Auto) 6.7 Eos % (Auto) 0.3 Baso % (Auto) 0.8 Absolute Neuts (auto) 7.7 Absolute Lymphs (auto) 1.01 Nucleated RBC % 0 PT 26.5 H INR 2.4 APTT 29.9 Sodium 137 Potassium 4.3 Chloride 103 Carbon Dioxide 21.9 Anion Gap 12 BUN 29 H Creatinine 2.48 H Est GFR (MDRD) Non-Af 25 L BUN/Creatinine Ratio 11.5 Glucose 171 H Lactic Acid 1.6 Calcium 9.2 Total Bilirubin 0.98 AST 25 ALT 18 Alkaline Phosphatase 73 NT pro BNP II 2261 H Total Protein 7.1 Albumin 4.3 Globulin 2.9 Albumin/Globulin Ratio 1.5 Radiography Diagnostic Testing: Clinical Impression(s) from Imaging Studies Chest X-Ray 01/31/25 11:40 IMPRESSION: Cardiac enlargement. Reading Location: [facility] Discharge Plan Triage Chief Complaint: Cough ED Midlevel Provider: Dolores Valencia ED Provider: Damir Israel Dx/Rx/DC Orders Clinical Impression: COVID-19, Acute dyspnea Instructions: Coronavirus Disease 2019 (COVID-19): Caring for Yourself or Others Prescriptions: New albuterol sulfate [Ventolin HFA] 90 mcg/actuation HFA aerosol inhaler 2 puff inhalation Q6H PRN (Reason: shortness of breath or wheezing) Qty: 6.7 0RF No Action simvastatin 20 mg tablet 20 mg PO QPM glucosamine HCl 1,500 mg tablet 1,500 mg PO BID warfarin 6 mg tablet 5 mg PO DAILY multivitamin Tablet 1 tab PO DAILY amoxicillin 500 mg capsule 500 mg PO Q12H cholecalciferol (vitamin D3) [Vitamin D3] 50 mcg (2,000 unit) capsule 50 mcg PO DAILY gabapentin 600 mg tablet 600 mg PO TID warfarin 6 mg tablet 6 mg PO TUFR insulin glargine [Lantus Solostar U-100 Insulin] 100 unit/mL (3 mL) insulin pen 15 unit SUBCUT DAILY Primary Care Provider: Kanu Steele Referrals: Kanu Steele MD [Primary Care Provider] - Activity Restrictions/Additional Instructions: You tested positive for COVID-19. This is a viral illness which was treated with rest, fluids, and taking Tylenol every 6 hours as needed for fever or pain. I prescribed an inhaler since the breathing treatments seem to help here. If your symptoms worsen or you have more difficulty breathing come back to the ER. Print Language: Belarusian Disposition Disposition: Home, Self Care Discharge Date/Time: 01/31/25 13:53
[2025-01-31 11:22] LABS: Hematocrit 43.5 % (40-54); Hemoglobin 14.5 g/dL (13.0-16.5); Immature Granulocytes Count 0.040 X10^3/uL (0.0-0.0); Mean Corp Hgb Conc 33.3 g/dL (32-36); Mean Corpuscular Volume 86.3 fL (80-94); Mean Platelet Vol. 10.7 fl (6.2-12.0); NRBC Flagged by Analyzer 0 % (0-5); Platelet Count 214 K/mm3 (150-450); RBC Distribution Width CV 14.5 % (11.6-14.6); RBC Distribution Width SD 45.9 fl (35.1-43.9); Red Blood Count 5.04 M/mm3 (4.6-6.2); White Blood Count 9.5 K/mm3 (4.4-11.0)
[2025-01-31 11:31] LABS: Prothrombin Time (Protime)PT. 26.5 SECONDS (11.7-14.9)
[2025-01-31 11:32] LABS: Partial Thromboplast Time 29.9 Seconds (24.1-36.2)
--- NOTE | 2025-01-31 11:40 | RAD_ITS ---
PROCEDURE: CHEST PA AND LATERAL 01/31/2025 REASON FOR EXAM: COUGH TECHNIQUE: CHEST PA AND LATERAL COMPARISON: August 21, 2024 FINDINGS: Hardware: EKG leads are seen Heart: The heart is enlarged. Mediastinum: Aortic atherosclerosis. Lungs: Clear Bones: Degenerative changes are identified within the thoracic spine. RAD/Chest PA and Lateral IMPRESSION: Cardiac enlargement. Reading Location: [id number]
[2025-01-31 11:54] LABS: AST(SGOT) 25 U/L (<=37); Alanine Aminotransfer ALT/SGPT 18 U/L (<=46); Albumin, Serum 4.3 g/dL (3.4-4.8); Alkaline Phosphatase 73 U/L (40-129); Anion Gap 12 (5-15); BUN 29 mg/dL (4-19); BUN/Creat Ratio 11.5 RATIO (10-20); Calcium,Total 9.2 mg/dL (7.6-11.0); Carbon Dioxide 21.9 mmol/L (21.0-32.0); Chloride 103 mmol/L (98-108); Globulin 2.9 g/dL (2.2-4.2); Glucose 171 mg/dL (70-99); Potassium 4.3 mmol/L (3.3-5.1); Pro- Brain NATRIURETIC PEPTIDE 2261 pg/mL (<=1800)
--- NOTE | 2025-01-31 12:56 | EX.ED.DYSGE1 ---
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 He states has gotten recurrent cellulitis in this leg yesterday. He started doxycycline and Keflex 2 days ago and was told to present to the ED if it worsened after 48 hours. He does not feel like it is improving and it feels more painful. There is a small scrape on his rivero which she is not sure how he acquired. He denies fever or chills. He has a history of blood clots in the left leg after knee surgery and states he is compliant with warfarin. [facility] Medical History Alcohol use Anemia Arthritis BPH (benign prostatic hyperplasia) Cancer Cardiology follow-up encounter COVID-19 (04/2021) Dietary restriction Essential hypertension Former smoker High cholesterol History of atrial fibrillation History of echocardiogram History of irregular heartbeat History of pain when walking History of stress test Hyperlipidemia Insulin dependent diabetes mellitus Leg cramps Paroxysmal atrial fibrillation Puncture wound of left middle finger Puncture wound of left ring finger Restless legs Shingles Shortness of breath on exertion Type 2 diabetes mellitus Wears dentures Wears glasses Wears hearing aid Home Medications ?Medication ?Instructions ?Recorded ?Last Taken ?Type glucosamine HCl 1,500 mg tablet 1,500 mg PO BID supplement 03/15/19 11/12/21 History simvastatin 20 mg tablet 20 mg PO QPM cholesterol 03/15/19 Unknown History warfarin 6 mg tablet 5 mg PO DAILY SUMOWETHSA 12/06/21 06/16/23 History Held on 06/21/23. Instructions: Resume on 07/05/23. multivitamin 1 tab PO DAILY 12/30/21 Unknown History cholecalciferol (vitamin D3) 50 50 mcg PO DAILY 06/14/23 06/21/23 History mcg (2,000 unit) capsule (Vitamin D3) gabapentin 600 mg tablet 600 mg PO TID 06/14/23 06/21/23 History insulin glargine 100 unit/mL (3 15 unit subcut DAILY 06/14/23 Unknown History mL) subcutaneous pen (Lantus Solostar U-100 Insulin) warfarin 6 mg tablet 6 mg PO TUFR 06/14/23 06/16/23 History Held on 06/21/23. Instructions: Resume on 07/05/23. amoxicillin 500 mg capsule 500 mg PO Q12H 06/24/23 Unknown History Allergy/AdvReac Type Severity Reaction Status Date / Time No Known Allergies Allergy Verified 06/24/23 06:28 Family History Mother Cancer Heart disease Hypertension Daughter Cancer Surgical History History of dental surgery Hx of basal cell carcinoma excision Hx of tonsillectomy Hx of transurethral resection of prostate Hx of vasectomy Social History household members: spouse housing: house Smoking Status: Former smoker alcohol intake: never substance use type: does not use additional social history: DOES USE ASPIRIN DOES USE IBUPROFEN EXAM Physical Exam Const Vital Signs: 01/31/25 10:37 01/31/25 10:39 01/31/25 11:05 Temperature 101.2 F H 101.2 F H Temperature Source Oral Oral Pulse Rate 85 85 Respiratory Rate 19 H 19 H Respiratory Effort Respiratory Depth Respiratory Pattern Blood Pressure 181/74 H 181/74 H Blood Pressure Mean 109 109 Pulse Ox 95 95 93 Oxygen Delivery Method Room Air Room Air Room Air 01/31/25 11:18 01/31/25 11:19 01/31/25 11:39 Temperature 101 F H Temperature Source Oral Pulse Rate 79 84 Respiratory Rate 20 H 13 Respiratory Effort Short of Breath Respiratory Depth Deep Respiratory Pattern Normal Blood Pressure 156/92 H Blood Pressure Mean 113 Pulse Ox 96 Oxygen Delivery Method Room Air Room Air MDM MDM Lab Data Labs: Laboratory Results - last 24 hr 01/31/25 11:07 WBC 9.5 RBC 5.04 Hgb 14.5 Hct 43.5 MCV 86.3 MCH 28.8 MCHC 33.3 RDW Std Deviation 45.9 H RDW Coeff of Nicolle 14.5 Plt Count 214 MPV 10.7 Immature Gran % (Auto) 0.400 Neut % (Auto) 81.1 H Lymph % (Auto) 10.7 L King % (Auto) 6.7 Eos % (Auto) 0.3 Baso % (Auto) 0.8 Absolute Neuts (auto) 7.7 Absolute Lymphs (auto) 1.01 Nucleated RBC % 0 PT 26.5 H INR 2.4 APTT 29.9 Sodium 137 Potassium 4.3 Chloride 103 Carbon Dioxide 21.9 Anion Gap 12 BUN 29 H Creatinine 2.48 H Est GFR (MDRD) Non-Af 25 L BUN/Creatinine Ratio 11.5 Glucose 171 H Lactic Acid 1.6 Calcium 9.2 Total Bilirubin 0.98 AST 25 ALT 18 Alkaline Phosphatase 73 NT pro BNP II 2261 H Total Protein 7.1 Albumin 4.3 Globulin 2.9 Albumin/Globulin Ratio 1.5 Radiography Diagnostic Testing: Clinical Impression(s) from Imaging Studies Chest X-Ray 01/31/25 11:40 IMPRESSION: Cardiac enlargement. Reading Location: [id number] Discharge Plan Triage Chief Complaint: Cough ED Midlevel Provider: Dolores Valencia ED Provider: Damir Israel Dx/Rx/DC Orders Clinical Impression: COVID-19 Prescriptions: No Action simvastatin 20 mg tablet 20 mg PO QPM glucosamine HCl 1,500 mg tablet 1,500 mg PO BID warfarin 6 mg tablet 5 mg PO DAILY multivitamin Tablet 1 tab PO DAILY amoxicillin 500 mg capsule 500 mg PO Q12H cholecalciferol (vitamin D3) [Vitamin D3] 50 mcg (2,000 unit) capsule 50 mcg PO DAILY gabapentin 600 mg tablet 600 mg PO TID warfarin 6 mg tablet 6 mg PO TUFR insulin glargine [Lantus Solostar U-100 Insulin] 100 unit/mL (3 mL) insulin pen 15 unit SUBCUT DAILY Primary Care Provider: Kanu Steele Referrals: Kanu Steele MD [Primary Care Provider] - Print Language: Portuguese
== END 2025-01-31 13:53 | disposition home or self-care (01) ==
PROVIDERS: Physician Assistant; Emergency Provider Emergency Medicine; PCP Family Medicine; Visit Provider Emergency Medicine
DX: U07.1 COVID-19 (principal); I48.0 Paroxysmal atrial fibrillation; E11.22 Type 2 diabetes mellitus with diabetic chronic kidney disease; Z79.4 Long term (current) use of insulin; I12.9 Hypertensive chronic kidney disease with stage 1 through stage 4 chronic kidney disease, or unspecified chronic kidney disease; N18.9 Chronic kidney disease, unspecified; Z79.899 Other long term (current) drug therapy; Z87.891 Personal history of nicotine dependence
CPT/HCPCS: 71046; 80053; 83605; 83880; 85025; 85610; 85730; 87040; 87631; 93005; 94640; 99284; A4216

== ENCOUNTER → 2025-04-09 | Outpatient (CLI) | payer OTHER, MEDICARE, SELFPAY ==
[2025-04-09 18:35] LABS: Creatinine, Urine (random) 51.50 mg/dL (39.00-259.00); Microalbumin,Random Urine 21.4 mg/L (<20 mg/L)
== END | disposition home or self-care (01) ==
LOC: LABSPEC 16:58
PROVIDERS: PCP Family Medicine; Visit Provider Family Medicine
DX: Z00.00 Encounter for general adult medical examination without abnormal findings (principal); E11.9 Type 2 diabetes mellitus without complications
CPT/HCPCS: 82043; 82570

== ENCOUNTER → 2025-04-23 | Outpatient (CLI) | payer MEDICARE, OTHER, SELFPAY ==
[2025-04-23 18:28] LABS: Creatinine, Urine (random) 65.00 mg/dL (39.00-259.00); Protein, Urine (Random) 21.0 mg/dL (0.0-12.0); Protein:Creat Ratio 323 mg/g CRE (0-200)
[2025-04-23 18:34] LABS: Anion Gap 12 (5-15); BUN 26 mg/dL (4-19); BUN/Creat Ratio 10.6 RATIO (10-20); Calcium,Total 9.4 mg/dL (7.6-11.0); Carbon Dioxide 23.5 mmol/L (21.0-32.0); Chloride 103 mmol/L (98-108); Glucose 245 mg/dL (70-99); Potassium 4.6 mmol/L (3.3-5.1)
== END | disposition home or self-care (01) ==
LOC: MTLAB 14:43
PROVIDERS: PCP Family Medicine; Referring Provider Internal Medicine Nephrology; Visit Provider Internal Medicine Nephrology
DX: N18.32 Chronic kidney disease, stage 3b (principal)
CPT/HCPCS: 36415; 80048; 82570; 84156